=== PATIENT | male | born 1940 | race Caucasian/White ===

== ENCOUNTER 2019-09-07 09:43 | Emergency (ER) | payer MEDICARE, MEDICAID, SELFPAY ==
[2019-09-07 09:45] VITALS: BP 136/79; PULSE 77; RESP 20; TEMP 36.4; O2SAT 93
[2019-09-07 09:46] VITALS: BMI 27.4
--- NOTE | 2019-09-07 10:11 | XR_ITS ---
WS: [id number] PORTABLE CHEST HISTORY: chest pain COMPARISON: 12/01/2018 Dual lead LEFT subclavian cardiac pacer. Slight elevation of the LEFT hemidiaphragm is stable. New interstitial thickening and stranding in th e RIGHT lower lung field. No pneumonia. No pleural effusion or pneumothorax. Cardiac size: Mildly enlarged cardiac silhouette. Mediastinum/Aorta: Prominent pulmonary arteries with rapid tapering. No mediastinal widening. Mild at herosclerosis aorta. No osseous abnormality seen. XR/XR chest 1V portable [id number] IMPRESSION: 1. Subsegmental atelectasis RIGHT lower lobe. 2. Emphysema and pulmonary hypertension.
--- NOTE | 2019-09-07 10:12 | ED_ITS ---
HPI - Chest Pain General: Chief Complaint: Chest Pain Stated Complaint: Chest pain Time Seen by Provider: 09/07/19 10:02 History of Present Illness: HPI narrative: 78-year-old male presents emergency room with complaints of chest pain has had intermittently for a week. 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 States he noticed his blood pressure will decrease into the 90s states she has more trouble breathing dizziness and chest pain in the morning has a blood pressure improved to the day the chest pain resolves he does related to some exertional effort when he walks across the house or get increased chest pain this morning he says he noticed it radiating to his neck and into the jaw on the left side. He is not been diaphoretic with it known nausea or vomiting. He has previously had known coronary disease and had multiple stents placed and has a pacemaker that was placed to help with rate control with his atrial fibrillation. MD complaint: chest pain and chest heaviness Pertinent past history: coronary artery disease Onset (ago): week(s) (2) Timing of current episode: episodic Prior episodes: Yes Onset: during exertion Pain location: substernal Pain radiation: neck (Left side) and jaw/teeth Quality: tightness and heaviness Relieving factors: rest Exacerbating factors: exertion Associated symptoms: Reports dyspnea and palpitations; Deny diaphoresis, fever(s), leg edema, nausea, syncope or vomiting Treatment prior to arrival: none Review of Systems Const: Denies: fever or diaphoresis ENMT: Denies: throat pain, ear pain, nasal discharge or nasal congestion Card: Reports: chest pain, palpitations and irregular heart rhythm; Denies: syncope Resp: Reports: shortness of breath GI: Denies: nausea or vomiting : Denies: flank pain, painful urination, urinary frequency or urinary urgency Skin/Breast: Denies: rash or itching PFSH ED PFSH: Statuses (acute, chronic, etc) shown below reflect problem list status as previously entered and may not be historically accurate Social History Smoking and tobacco status: former smoker Physical Exam Const: COMMON NORMALS: no apparent distress GENERAL APPEARANCE: cooperative and comfortable ORIENTATION/CONSCIOUSNESS: Yes awake, Yes oriented to person, Yes oriented to place and Yes oriented to time HENMT: COMMON NORMALS: normocephalic, head/scalp atraumatic, hearing grossly normal bilaterally, external ears normal, EAC's normal, TM's normal bilaterally, nasal mucous membranes and turbinates normal, moist oral mucous membranes and oropharynx normal HEAD & SCALP: normocephalic and atraumatic NOSE: nasal mucous membranes and turbinates normal EXTERNAL EAR: Yes external ears normal EXTERNAL AUDITORY CANAL: EAC's normal TYMPANIC MEMBRANE: TM's normal bilaterally Eye: COMMON NORMALS: PERRL, EOMs intact bilaterally, conjunctivae normal and no scleral icterus CONJUNCTIVA: Yes conjunctivae normal PUPIL: Yes PERRL Neck/C-Spine: COMMON NORMALS: full ROM, no lymphadenopathy, supple and no JVD Lymph: LYMPHATIC: no lymphadenopathy noted and no lymphedema noted Resp: COMMON NORMALS: normal respiratory effort, no retractions, no use of accessory muscles and clear to auscultation bilaterally AUSCULTATION: clear to auscultation bilaterally Cardio: COMMON NORMALS: no JVD, regular rate, regular rhythm and no murmurs RATE: regular rate RHYTHM: regular rhythm GI: COMMON NORMALS: soft to palpation and no hepatosplenomegaly AUSCULTATION: Yes normoactive bowel sounds PALPATION: Yes soft, No tender, No guarding and Yes no hepatosplenomegaly Extremity: COMMON NORMALS: normal to inspection, normal capillary refill, no clubbing, cyanosis or edema, no calf tenderness and no pedal edema Neuro: SENSORIUM/ORIENTATION: Yes oriented to person, Yes oriented to place and Yes oriented to time Skin: COMMON NORMALS: no rashes or lesions noted GENERAL SKIN EXAM: no rashes or lesions noted Course Vital Signs: Vital signs: Vital Signs Temperature 97.6 F 09/07/19 09:45 Pulse Rate 78 09/07/19 13:44 Respiratory Rate 18 09/07/19 13:44 Blood Pressure 136/78 09/07/19 13:44 Pulse Oximetry 98 09/07/19 13:44 MDM - Chest Pain Lab Data: Labs: Lab Results 09/07/19 09/07/19 09/07/19 Range/Units 10:20 10:20 10:20 WBC 9.1 (4.0-10.0) 10^3/ uL RBC 4.61 (4.1-5.3) 10^6/u L Hgb 14.0 (11.7-16.6) g/dL Hct 43.3 (42.0-52.0) % MCV 93.9 (80-94) fL MCH 30.4 (28.0-34.0) pg MCHC 32.3 (30.0-36.0) g/dL RDW 13.9 (12.1-15.1) % Plt Count 252 (130-400) 10^3/c mm MPV 10.3 (7.4-10.4) fL Neut % (Auto) 75.7 % Lymph % (Auto) 14.9 % [place] % (Auto) 5.2 % Eos % (Auto) 1.9 % Baso % (Auto) 1.5 % Neut # (Auto) 6.9 (1.8-7.7) 10^3/u L Lymph # (Auto) 1.4 (0.8-4.8) 10^3/u L [place] # (Auto) 0.5 (0.2-0.9) 10^3/u L Eos # (Auto) 0.2 (0.0-0.8) 10^3/u L Baso # (Auto) 0.1 (0.0-0.1) 10^3/u L Nucleated RBC % (a uto) 0 % Nucleated RBCs # 0.0 /100WBC Sodium 142 (136-145) mmol/L Potassium 3.7 (3.5-5.1) mmol/L Chloride 102 (98-107) mmol/L Carbon Dioxide 29 (22-29) mmol/L Anion Gap 14.7 (5-19) BUN 13 (8-23) mg/dL Creatinine 1.0 (0.7-1.2) mg/dL Glucose 124 H (74-106) mg/dL Calcium 9.3 (8.8-10.2) mg/Dl Total Bilirubin 0.4 (0.15-1.2) mg/dL AST 12 (0-40) U/L ALT 7 (0-41) U/L Alkaline Phosphata se 97 (40-130) IU/L Troponin T Baselin e 18 H (0-15) ng/mL Troponin T 120 Min [place] (0-15) ng/mL Delta Troponin T (0-10) ABS# Total Protein 6.1 L (6.6-8.7) g/dL Albumin 4.0 (3.5-5.2) g/dL Globulin 2.1 (1.3-4.6) g/dL 09/07/19 Range/Units 12:25 WBC (4.0-10.0) 10^3/ uL RBC (4.1-5.3) 10^6/u L Hgb (11.7-16.6) g/dL Hct (42.0-52.0) % MCV (80-94) fL MCH (28.0-34.0) pg MCHC (30.0-36.0) g/dL RDW (12.1-15.1) % Plt Count (130-400) 10^3/c mm MPV (7.4-10.4) fL Neut % (Auto) % Lymph % (Auto) % [place] % (Auto) % Eos % (Auto) % Baso % (Auto) % Neut # (Auto) (1.8-7.7) 10^3/u L Lymph # (Auto) (0.8-4.8) 10^3/u L [place] # (Auto) (0.2-0.9) 10^3/u L Eos # (Auto) (0.0-0.8) 10^3/u L Baso # (Auto) (0.0-0.1) 10^3/u L Nucleated RBC % (a uto) % Nucleated RBCs # /100WBC Sodium (136-145) mmol/L Potassium (3.5-5.1) mmol/L Chloride (98-107) mmol/L Carbon Dioxide (22-29) mmol/L Anion Gap (5-19) BUN (8-23) mg/dL Creatinine (0.7-1.2) mg/dL Glucose (74-106) mg/dL Calcium (8.8-10.2) mg/Dl Total Bilirubin (0.15-1.2) mg/dL AST (0-40) U/L ALT (0-41) U/L Alkaline Phosphata se (40-130) IU/L Troponin T Baselin e (0-15) ng/mL Troponin T 120 Min [place] 14.51 (0-15) ng/mL Delta Troponin T -3.49 L (0-10) ABS# Total Protein (6.6-8.7) g/dL Albumin (3.5-5.2) g/dL Globulin (1.3-4.6) g/dL Discharge Plan Discharge Patient Disposition: Home, Self-Care Clinical Impression: Atypical chest pain, Atrial fibrillation Condition: Stable Prescriptions: No Action isosorbide mononitrate 30 mg Tablet Extended Release 24 Hr 30 mg PO QAM RF: 0 prednisone 5 mg Tablet 5 mg PO DAILY RF: 0 Aspir-81 81 mg Tablet,Delayed Release (Dr/Ec) 81 mg PO BEDTIME RF: 0 sotalol 120 mg Tablet 120 mg PO BID RF: 0 Prevacid 30 mg Capsule,Delayed Release(Dr/Ec) 30 mg PO BID RF: 0 Nitrostat 0.4 mg Tablet, Sublingual 0.4 mg SUBLINGUAL Q5M PRN (Reason: Chest Pain) RF: 0 hydroxyzine HCl 25 mg Tablet 25 mg PO TID PRN (Reason: Itching) RF: 0 hydrocortisone 10 mg Tablet 10 mg PO BID RF: 0 Lyrica 300 mg Capsule 300 mg PO DAILY RF: 0 Pradaxa 150 mg Capsule 150 mg PO BID RF: 0 Referrals: Riaz Lovelace MD [Primary Care Provider] - Discharge Diet: Usual diet Discharge Activity: Increase activity as tolerated Activity Restrictions/Additional Instructions: Discussed her case with Dr. Lancaster. He recommends an outpatient stress test which will be set up with child welfare caseworker will call you with the results after which follow-up with his office. If you have any other questions or problems before the testing is done please call Dr. Reza's office Discharge Date/Time: 09/07/19 13:46 Coding Level of Care Code ED Invasive Physician for Jude Fwann Exam Problem Focused
[2019-09-07 10:26] LABS: Basophils # 0.1 10^3/uL (0.0-0.1); Basophils % 1.5 %; Eosinophils # 0.2 10^3/uL (0.0-0.8); Eosinophils % 1.9 %; Hematocrit 43.3 % (42.0-52.0); Lymphocytes # 1.4 10^3/uL (0.8-4.8); Lymphocytes % 14.9 %; Mean Corpuscular HGB Conc 32.3 g/dL (30.0-36.0); Mean Corpuscular Hemoglobin 30.4 pg (28.0-34.0); Mean Corpuscular Volume 93.9 fL (80-94); Mean Platelet Volume 10.3 fL (7.4-10.4); Monocytes # 0.5 10^3/uL (0.2-0.9); Monocytes % 5.2 %; Neutrophils # 6.9 10^3/uL (1.8-7.7); Neutrophils % 75.7 %; Nucleated Red Blood Cells % 0 %; Platelet Count 252 10^3/cmm (130-400); Red Blood Count 4.61 10^6/uL (4.1-5.3); Red Cell Distribution Width 13.9 % (12.1-15.1); White Blood Count 9.1 10^3/uL (4.0-10.0)
[2019-09-07 10:45] LABS: Alanine Aminotransferase 7 U/L (0-41); Alkaline Phosphatase 97 IU/L (40-130); Anion Gap 14.7 (5-19); Aspartate Amino Transferase 12 U/L (0-40); Blood Urea Nitrogen 13 mg/dL (8-23); Calcium 9.3 mg/Dl (8.8-10.2); Carbon Dioxide 29 mmol/L (22-29); Chloride 102 mmol/L (98-107); Globulin 2.1 g/dL (1.3-4.6); Glucose 124 mg/dL (74-106); Potassium 3.7 mmol/L (3.5-5.1); Sodium 142 mmol/L (136-145); Total Bilirubin 0.4 mg/dL (0.15-1.2); Total Protein 6.1 g/dL (6.6-8.7); Troponin(5th) Baseline 18 ng/mL (0-15)
--- NOTE | 2019-09-07 12:11 | ECG_ITS ---
Measurements Intervals [place] Rate: 77 P: 96 FL: 191 QRS: -23 QRSD: 83 T: 19 QT: 403 QTc: 456 ELECTRONIC ATRIAL PACEMAKER BORDERLINE LEFT AXIS DEVIATION [QRS AXIS < -20] ABNORMAL RHYTHM ECG Compared to ECG 12/13/2018 12:27:54 Atrial fibrillation no longer present Myocardial infarct finding no longer present Electronically Signed On 09-07-2019 15:30:24 TEST RIDER by Aydin Steward M.D. [id number]
[2019-09-07 12:58] LABS: Troponin 5 2HR 14.51 ng/mL (0-15)
[2019-09-07 13:10] LABS: Troponin 5 2HR Delta -3.49 ABS# (0-10)
[2019-09-07 13:44] VITALS: BP 136/78; PULSE 78; RESP 18; O2SAT 98
--- NOTE | 2019-09-07 16:11 | ECG_ITS ---
Measurements Intervals [place] Rate: 73 P: 80 ND: 183 QRS: -18 QRSD: 90 T: 21 QT: 419 QTc: 463 ELECTRONIC ATRIAL PACEMAKER ABNORMAL RHYTHM ECG Compared to ECG 12/13/2018 12:27:54 Atrial fibrillation no longer present Myocardial infarct finding no longer present Electronically Signed On 09-07-2019 15:29:22 PAPER PRODUCTS MACHINE OPERATOR by Aydin Steward M.D. [email or web address]
--- NOTE | 2019-09-08 15:54 | DCPLANNER ---
manager of investigations had message to schedule an outpatient stress test for patient. manager of investigations faxed order to centralized scheduling, will call for appointment information.
--- NOTE | 2019-09-13 14:32 | DCPLANNER ---
Patient has a stress test scheduled for 09.22.19, centralized will call patient with appointment information.
--- NOTE | 2019-10-06 14:38 | DCPLANNER ---
Patient did attend stress test scheduled for 09.22.19.
== END 2019-09-07 13:46 | disposition home or self-care (01) ==
PROVIDERS: Emergency Provider Family Medicine; Family Provider Family Medicine; PCP Family Medicine
DX: R07.89 Other chest pain (principal); I48.91 Unspecified atrial fibrillation; Z79.82 Long term (current) use of aspirin; Z87.891 Personal history of nicotine dependence
CPT/HCPCS: 36415; 71045; 80053; 84484; 85025; 93005; 99282

== ENCOUNTER 2019-09-22 06:57 | Outpatient (CLI) | payer MEDICARE, MEDICAID, SELFPAY ==
--- NOTE | 2019-09-22 07:06 | ECG_ITS ---
NAME OF STUDY: LEXISCAN SESTAMIBI STRESS TEST INDICATION: Chest Pain, NOTE: Please note that this is the electrocardiogram portion of the Lexiscan/Sestamibi stress test. The perfusion scan will be documented separately. DATA: Baseline heart rate was 80 beats per minute. Baseline blood pressure was 162/96 millimeters of mercury. Target heart rate was 143. Maximum heart rate achieved was 139. which was 97 % of the predicted target heart rate. Maximum blood pressure was 162/96 millimeters of mercury. The reason for ending the test was completion of the protocol. The patient did not experience any symptoms. ELECTROCARDIOGRAM: BASELINE: Sinus rhythm. Normal axis. Interventricular conduction delay, Otherwise, no ST-T changes suggestive of ischemia noted. No arrhythmia noted. EXERCISE: After Lexiscan injection, no ST-T changes suggestive of ischemic noted. No arrhythmia noted. CONCLUSION: Please note due to baseline abnormality of the EKG specificity and sensitivity of the EKG portion of LexiScan MIBI stress test will be low 1. EKG not suggestive of ischemia 2. Lexiscan injection unremarkable. 3. Perfusion scan will be documented separately. Electronically Signed On 09-22-2019 15:19:24 PROFESSIONAL FEE CODER by Debbie Lancaster M.D. [id number]
--- NOTE | 2019-09-22 07:07 | NMCV_ITS ---
NM radha perf SPECT r/s* [id number] Gamal Burk Age: 78 Gender: M : 1940 Exam Date: 09/22/2019 08:03 Ordering Phys: Felipe Mcclellan DO Technologist: OCTAVIA Clark Exam Location: [facility] Indications: Chest pain STRESS TEST Please see separate stress test report in [facility] for full findings IMAGE PROTOCOL Rest/Stress 1 Lexiscan Day Radiopharmaceutical Dose (mCi) Administration Site Administered by Rest: Tc-99m 10.8 IV OCTAVIA Clark Sestamibi Stress:Tc-99m 32.4 IV OCTAVIA Clark Sestamibi Rest: 22-Sep-2019 60 Discovery 630 Stress: 22-Sep-2019 45 Discovery 630 0.4mg Lexiscan. Images obtained in supine and prone position. SPECT RESULTS Technical Quality: Good Raw Data Analysis: Normal Image Corrections: No attenuation or motion correction applied Summed Stress Score: 2 Summed Rest Score: 0 Summed Difference Score: 2 PERFUSION FINDINGS SPECT images demonstrate homogeneous tracer distribution throughout the myocardium. FUNCTIONAL RESULTS (calculated via Gated SPECT) Stress Image LV EF (%): 51 Stress EDV (mL):81 TID: 1.09 Stress ESV (mL):40 Rest Image LV EF (%): 51 FUNCTIONAL FINDINGS: There is normal left ventricular systolic function. IMPRESSIONS Myocardial perfusion imaging is normal and low probability for obstructive coronary artery disease. EKG segment will be documented separately. Debbie Lancaster MD (Electronically Signed) Final Date: 22 September 2019 14:31 S
[2019-09-22 07:19] VITALS: BMI 27.3
[2019-09-22] MEDS: regadenoson 0.4 Mg/5 ml Syringe IVP (08:45)
[2019-09-22] MEDS: aminophylline 25 mg/mL SDV 10 mL IVP (08:50)
[2019-09-22 09:00] VITALS: BP 145/84; PULSE 70
== END 2019-09-22 06:58 | disposition home or self-care (01) ==
LOC: CDL 07:00
PROVIDERS: Family Provider Family Medicine; PCP Family Medicine; Visit Provider Family Medicine
DX: R07.9 Chest pain, unspecified (principal)
CPT/HCPCS: 78452; 93017; 96374; 96375; A9500; J0280; J2785

== ENCOUNTER → 2019-09-28 14:10 | Outpatient (BNVA) | payer MEDICARE, MEDICAID, SELFPAY | PROVIDERS: Family Provider Family Medicine; PCP Family Medicine; Visit Provider Nurse Practitioner Family | DX: N40.0 Benign prostatic hyperplasia without lower urinary tract symptoms (principal); N39.0 Urinary tract infection, site not specified; R82.81 Pyuria | CPT/HCPCS: 81001; 87077; 87086; 87186 ==

== ENCOUNTER → 2019-10-19 09:49 | Outpatient (BNVA) | payer MEDICARE, MEDICAID, SELFPAY | PROVIDERS: Family Provider Family Medicine; PCP Family Medicine; Visit Provider Urology | DX: R31.0 Gross hematuria (principal); N39.0 Urinary tract infection, site not specified; N40.1 Benign prostatic hyperplasia with lower urinary tract symptoms | CPT/HCPCS: 81001 ==

== ENCOUNTER → 2019-11-30 12:10 | Outpatient (BNVA) | payer MEDICARE, MEDICAID, SELFPAY | PROVIDERS: Family Provider Family Medicine; PCP Family Medicine; Visit Provider Urology | DX: N40.1 Benign prostatic hyperplasia with lower urinary tract symptoms (principal); R31.0 Gross hematuria; N30.20 Other chronic cystitis without hematuria | CPT/HCPCS: 80053; 81001; 87077; 87086; 87186 ==

== ENCOUNTER 2020-01-18 13:48 | Outpatient (CLI) | payer MEDICARE, MEDICAID, SELFPAY ==
--- NOTE | 2020-01-18 13:56 | CT_ITS ---
WS: [id number] CT RIGHT HIP, NONCONTRAST. HISTORY: GREATER TROCHANTERIC BURSITIS Technique: All CT scans at [facility] use at least one of these dose optimization techniq ues: automated exposure control; mA and/or kV adjustment per patient size (includes targeted exams wh ere dose is matched to clinical indication); or iterative reconstruction. DLP: 606.51 mGy.cm COMPARISON: 12/15/2015 Status post RIGHT hip arthroplasty. Prosthetic components within the acetabulum and proximal femur re main in good position. Acetabular component is similar to the prior CT of 12/15/2015. There is no adjac ent soft tissue edema. Femoral head component is centrally positioned within the acetabular prosthesi s. No loosening is evident. Mild narrowing and degenerative changes at the RIGHT SI joint. No osteoblastic or osteolytic bone dis ease. No significant amount of fluid over the greater trochanter. Muscles and soft tissues are preser miguel. Scattered calcifications in the femoral artery. Prostate gland enlargement. Bladder wall is thickened and there is a bladder diverticulum anteriorly. Prostate seeds are evident. CT/CT hip RT wo con* [id number] IMPRESSION: 1. Status post RIGHT hip arthroplasty with no complications. 2. No fractures or loosening or soft tissue collections. 3. Mild bladder wall hypertrophy and small bladder diverticulum. Probably rela ck to a chronic outlet obstruction.
== END 2020-01-18 13:49 | disposition home or self-care (01) ==
LOC: RAD 13:53
PROVIDERS: PCP Family Medicine; Visit Provider Family Medicine
DX: M70.61 Trochanteric bursitis, right hip (principal); Z96.641 Presence of right artificial hip joint; N32.89 Other specified disorders of bladder; N32.3 Diverticulum of bladder
CPT/HCPCS: 73700

== ENCOUNTER → 2020-03-07 08:35 | Outpatient (BNVA) | payer MEDICARE, MEDICAID, SELFPAY | PROVIDERS: PCP Family Medicine; Visit Provider Urology | DX: N30.20 Other chronic cystitis without hematuria (principal) | CPT/HCPCS: 80053; 81001; 87077; 87086; 87186 ==

== ENCOUNTER → 2020-04-08 07:39 | Outpatient (BNVA) | payer MEDICARE, MEDICAID, SELFPAY | PROVIDERS: PCP Family Medicine; Visit Provider Urology | DX: N30.20 Other chronic cystitis without hematuria (principal) | CPT/HCPCS: 81001 ==

== ENCOUNTER 2020-07-08 16:27 | Emergency (ER) | payer MEDICARE, MEDICAID, SELFPAY ==
[2020-07-08 16:47] VITALS: BP 138/91; PULSE 99; RESP 12; TEMP 36.1; O2SAT 97; BMI 27.2
--- NOTE | 2020-07-08 17:45 | ED_ITS ---
HPI - Epistaxis General: Chief complaint: Epistaxis Stated complaint: Severe Nose Bleed Time Seen by Provider: 07/08/20 17:34 History of Present Illness: HPI Narrative: Patient is a 79-year-old male who comes to the ED with epistaxis. Patient is on Eliquis and was just told by his PCP to stop taking Eliquis today due to his nosebleed. He took his last dose this morning. Patient said this morning he leaned forward and blood started dripping out of his nose. That lasted for about 30 minutes and he was able to stop it. He then got up and walked to another room of the house and nosebleeding started again. He has been pinching his nose to try to stop b leeding and has not stopped. Denies any trauma or injury to cause nosebleed. Associated symptoms: Deny fever(s), headache(s) or vomiting Review of Systems Const: Denies: fever(s), chills or fatigue Eyes: Denies: change in vision or eye discomfort ENMT: Reports: epistaxis; Denies: throat pain, odynophagia, nasal discharge or nasal congestion Card: Denies: chest pain, palpitations, edema, swelling of feet/ankles, dyspnea on exertion or orthopnea Resp: Denies: dyspnea, productive cough or non-productive cough GI: Denies: abdominal pain, nausea, vomiting, diarrhea, constipation or hematochezia : Denies: flank pain, difficulty urinating, dysuria or hematuria Musc: Denies: neck pain, back pain or extremity swelling Skin/Breast: Denies: rash or new lesions Neuro: Denies: headache(s), numbness in extremities or weakness in extremities [facility] ED PFSH: Medical History Atrial fibrillation BPH loc w urin obs/LUTS Could not tolerate Alpha blockers or 5 alpha reductase inhibitors. CAD (coronary artery disease) Chest pain Chronic cystitis Chronic prostatitis Essential hypertension Gross hematuria Recurrent UTI Surgical History H/O heart artery stent H/O local excision of skin lesion H/O total hip arthroplasty History of back surgery S/P appendectomy S/P cardiac pacemaker procedure S/P hemorrhoidectomy S/P inguinal hernia repair Family History Family/Other Cancer CAD (coronary artery disease) Father , AT AGE 78 No problems noted. Mother , AT AGE 84 CAD (coronary artery disease) Social History Smoking and tobacco status: former smoker Alcohol intake: never Adopted: No Caregiver/support person: No Lives independently: No Household members: spouse Marital status: Current occupational status: retired History of recent travel: No Current gender identity: Male Physical Exam Const: COMMON NORMALS: no acute distress, patient oriented x3 and alert GENERAL APPEARANCE: cooperative and comfortable HENMT: COMMON NORMALS: normocephalic HEAD & SCALP: normocephalic NOSE: Epistaxis present on the left anterior source, active bleeding (minimal active bleeding seen) and clots present MOUTH: Normal oral and palatal mucosa present and other (Visible blood seen slightly draining down back of throat upon exam.) THROAT: posterior oropharynx normal and uvula midline Eye: COMMON NORMALS: Equal, round and reactive pupils present PUPIL: Yes Equal, round and reactive pupils present Neck/C-Spine: COMMON NORMALS: supple GENERAL: Yes normal visual inspection Resp: COMMON NORMALS: normal respiratory effort, No retractions, No use of accessory muscles and clear to auscultation bilaterally AUSCULTATION: clear to auscultation bilaterally Cardio: COMMON NORMALS: regular rate, regular rhythm, S1 normal heart sound present, S2 normal heart sound present, No gallops present (Cardio), No clicks present (Cardio), No murmurs present (Cardio) and Peripheral pulses 2+ throughout RATE: regular rate RHYTHM: regular rhythm HEART SOUNDS: S1 normal heart sound present and S2 normal heart sound present PERIPHERAL PULSES: Peripheral pulses 2+ throughout GI: COMMON NORMALS: Normal to inspection, nondistended, normoactive bowel sounds present, Soft to palpation, non-tender and no masses PALPATION: Yes Soft to palpation : COMMON NORMALS: Yes no CVA tenderness BLADDER/KIDNEY EXAM: Yes no CVA tenderness Back/Pelvis: COMMON NORMALS: no CVA tenderness Extremity: COMMON NORMALS: normal to inspection Neuro: COMMON NORMALS: patient oriented x3 and moves all extremities SENSORIUM/ORIENTATION: Yes alert Skin: GENERAL SKIN EXAM: dry skin Course Reevaluation(s): Reevaluation #1: Initial exam showed minimal bleeding in the left nare appears to be anterior source. Some blood clots seen. Was able to visualize small amount of bleeding draining to the back of patient's throat. Patient was given some nasal spray in both nostrils and then nose was clamped for 10 minutes. When I went in to reevaluate he had no more active bleeding and blood clots were seen. No active bleeding down the back of the throat visualized. I then applied 2 more sprays of Afrin in each nostril and clamped again and will recheck in about 5 minutes. Time: 18:12 Reevaluation #2: Patient's nose was checked again for any bleeding and no active bleeding seen. Blood clots noted in left nare. No active bleeding visualized down back of patient's throat. Patient says he feels like bleeding is stopped. Vital Signs: Vital signs: Vital Signs Temperature 97.0 F L 07/08/20 16:47 Pulse Rate 99 07/08/20 16:47 Respiratory Rate 12 07/08/20 16:47 Blood Pressure 138/91 07/08/20 16:47 Pulse Oximetry 97 07/08/20 16:47 MDM - Epistaxis MDM Narrative: Medical decision making narrative: Patient is a 79-year-old male comes to the ED with epistaxis. Patient is on Eliquis and was told by his doctor to stop taking due to nosebleed. He took his last dose this morning and is not going to take his usual evening dose. While here in the ED Afrin was sprayed into the nostrils and nasal clamp was placed for well over 15 minutes. Nasal clamp was then removed and bleeding had stopped. Clots seen in left nare. No visible bleeding seen down the back of patient's throat. Patient was discharged and given instructions on how to handle any reoccurring nosebleed. He was told to contact his PCP tomorrow morning to discuss how long he should be off his Eliquis. Return to ED precautions given. Patient understood and agreed with plan. Lab Data: Attestation: I reviewed the patient's lab results. Labs: Lab Results 07/08/20 07/08/20 Range/Units 17:38 17:38 WBC 8.0 (4.0-10.0) 10^3/ uL RBC 4.25 (4.1-5.3) 10^6/u L Hgb 13.3 (11.7-16.6) g/dL Hct 42.3 (42.0-52.0) % MCV 99.5 H (80-94) fL MCH 31.3 (28.0-34.0) pg MCHC 31.4 (30.0-36.0) g/dL RDW 13.7 (12.1-15.1) % Plt Count 266 (130-400) 10^3/c mm MPV 11.0 H (7.4-10.4) fL Neut % (Auto) 54.9 % Lymph % (Auto) 30.0 % [place] % (Auto) 7.5 % Eos % (Auto) 4.9 % Baso % (Auto) 2.1 % Neut # (Auto) 4.41 (1.8-7.7) 10^3/u L Lymph # (Auto) 2.4 (0.8-4.8) 10^3/u L [place] # (Auto) 0.6 (0.2-0.9) 10^3/u L Eos # (Auto) 0.4 (0.0-0.8) 10^3/u L Baso # (Auto) 0.2 H (0.0-0.1) 10^3/u L Nucleated RBC % (a uto) 0 % Nucleated RBCs # 0.0 /100WBC PT 15.20 H (12.1-14.9) SECO NDS INR 1.16 (0.8-1.2) Discharge Plan Discharge Patient Disposition: Home Clinical Impression: Epistaxis Condition: Stable Prescriptions: No Action Eliquis 2.5 mg tablet 2.5 mg PO BID RF: 0 Dexilant 30 mg capsule,biphase delayed releas 60 mg PO DAILY RF: 0 hydrocodone-acetaminophen [[place]] 7.5-325 mg tablet 1 tab PO TID PRNRF: 0 doxycycline hyclate 100 mg tablet 100 mg PO BID Qty: 60 RF: 1 prednisone 5 mg Tablet 5 mg PO DAILY RF: 0 Aspir-81 81 mg Tablet,Delayed Release (Dr/Ec) 81 mg PO BEDTIME RF: 0 sotalol 120 mg Tablet 120 mg PO BID RF: 0 Nitrostat 0.4 mg Tablet, Sublingual 0.4 mg SUBLINGUAL Q5M PRN (Reason: Chest Pain) RF: 0 hydrocortisone 10 mg Tablet 10 mg PO BID RF: 0 Lyrica 300 mg Capsule 300 mg PO DAILY RF: 0 hydroxyzine HCl 25 mg tablet 25 mg PO DAILY RF: 0 Discharge Orders: Discharge Order (Routine); Ordered 07/08/20 Ordered By: Curly Copeland Referrals: Riaz Lovelace MD [Primary Care Provider] - Discharge Diet: Regular Discharge Activity: Limit activity as instructed Patient Instructions: Epistaxis (ED) Activity Restrictions/Additional Instructions: Follow-up with medical provider as directed. Contact your heart doctors and see how long he would like for you to be off your Eliquis. Limit any lifting or activity for the next couple days. If you have a reoccurring nosebleed he can spray Afrin twice in each nostril and use the clamp on nose. Repeat that after 10 minutes if bleeding has not stopped. If after 30 minutes he cannot control bleeding return to the ED. Take medications as prescribed. Return to the ER or your medical provider if condition worsens. Please read and understand discharge instructions. If any questions, please ask. Coding Level of Care Code ED Bridge Mechanic for Jude Fwd Exam Comprehensive
[2020-07-08] MEDS: oxymetazoline 0.05% Nasal Spray 15 mL 2 SPRAY NOSTRIL-B (17:55)
[2020-07-08 18:15] LABS: Basophils # 0.2 10^3/uL (0.0-0.1); Basophils % 2.1 %; Eosinophils # 0.4 10^3/uL (0.0-0.8); Eosinophils % 4.9 %; Hematocrit 42.3 % (42.0-52.0); Hemoglobin 13.3 g/dL (11.7-16.6); Lymphocytes # 2.4 10^3/uL (0.8-4.8); Mean Corpuscular HGB Conc 31.4 g/dL (30.0-36.0); Mean Corpuscular Hemoglobin 31.3 pg (28.0-34.0); Mean Corpuscular Volume 99.5 fL (80-94); Monocytes # 0.6 10^3/uL (0.2-0.9); Monocytes % 7.5 %; Neutrophils # 4.41 10^3/uL (1.8-7.7); Neutrophils % 54.9 %; Nucleated Red Blood Cells % 0 %; Platelet Count 266 10^3/cmm (130-400); Red Blood Count 4.25 10^6/uL (4.1-5.3); Red Cell Distribution Width 13.7 % (12.1-15.1)
[2020-07-08 18:22] LABS: INR 1.16 (0.8-1.2)
== END 2020-07-08 18:57 | disposition home or self-care (01) ==
PROVIDERS: Emergency Medicine; Emergency Provider Physician Assistant; PCP Family Medicine
DX: R04.0 Epistaxis (principal); Z79.01 Long term (current) use of anticoagulants; Z79.82 Long term (current) use of aspirin; I48.91 Unspecified atrial fibrillation; I25.10 Atherosclerotic heart disease of native coronary artery without angina pectoris; I10 Essential (primary) hypertension; Z87.891 Personal history of nicotine dependence
CPT/HCPCS: 12345; 85025; 85610; 99281; 99283

== ENCOUNTER → 2020-08-13 09:03 | Outpatient (BNVA) | payer MEDICARE, MEDICAID, SELFPAY | PROVIDERS: PCP Family Medicine; Visit Provider Urology | DX: N40.1 Benign prostatic hyperplasia with lower urinary tract symptoms (principal); N41.1 Chronic prostatitis; R31.0 Gross hematuria; N39.0 Urinary tract infection, site not specified | CPT/HCPCS: 81003 ==

== ENCOUNTER 2020-08-21 12:03 | Outpatient (CLI) | payer MEDICARE, MEDICAID, SELFPAY ==
--- NOTE | 2020-08-21 14:52 | P.PTHFZ_ITS ---
Frozen Section Notes Specimen(s): The specimens are received in 6 containers labeled with the patient's name. Gross: The specimens are received in 6 containers labeled the patient's name and MRN number. Specimen A, BCC a posterior scalp?suture anterior (formalin) is received in formalin. Specimen B, right ear skin cancer suture superior (fresh) is a whitlock ellipse of skin measuring 1.5 x 0.6 x 0.2 cm. The superior margin is identified and is inked in black and the deep area is identified. The superior margin is 6:00 and 6-12 is inked in blue and 12-6 is inked in red the superior margin is submitted in cassette B1 for frozen and the inferior margin and remainder sections are submitted in cassette B2. Specimen C, left posterior margin of BCCA posterior scalp consists of whitlock-white mucosa measuring 0.9 x 0.9 x 0.1 cm. The skin is identified with hair follicles and the deep margin is inked in blue. The specimen is entirely submitted for frozen section. FS C1. Specimen D, right anterior margin of BCCA posterior scalp consists of skin with mucosa measuring 0.9 x 1.5 x 0.2 cm. The deep margin is inked in blue. The specimen is entirely submitted in cassette FS D1. Specimen E, left anterior margin of BCCA posterior scalp consists of left anterior margin BCC posterior scalp measuring 1.1 x 0.5 x 0.2 cm. The deep margin is inked in blue and the specimen is entirely submitted in cassette FS E1 for frozen section. Specimen F, right posterior margin of BCCA consists of skin with mucosa rickey suring 1.1 x 0.5 x 0.2 cm. The deep margin is inked in blue and the specimen is entirely submitted for frozen section diagnosis in FS F1. Preliminary Impression: B. Ear, right, right ear skin cancer suture superior FS B1: Margins are negative for squamous cell carcinoma. C. Skin, left posterior margin of BCCA posterior scalp FS C1: Margin is negative for BCC. D. Skin, right anterior margin of BCCA posterior scalp FS D1: Margin is negative for BCC. E. Skin, left anterior margin of BCCA posterior scalp FS E1: Margin is negative for BCC. F. Skin, right posterior margin of BCCA posterior scalp FS F1: Margin is negative for BCC. - Specimen Information Pathologist: Apollo Blanca Date: 08/21/19 (\) Specimen reported at what time: 11:28 - Clinician Specimen collection time: 10:52 Clinician reported to: Harjinder Ascencio
== END 2020-08-21 12:04 | disposition home or self-care (01) ==
PROVIDERS: PCP Family Medicine; Visit Provider Specialist
DX: C44.41 Basal cell carcinoma of skin of scalp and neck (principal)
CPT/HCPCS: 88305

== ENCOUNTER 2020-09-11 10:36 | Emergency (ER) | payer MEDICARE, MEDICAID, SELFPAY ==
[2020-09-11 10:42] VITALS: BP 135/81; PULSE 88; RESP 16; TEMP 36.3; O2SAT 96; BMI 27.2
[2020-09-11 10:45] VITALS: BP 143/80; PULSE 80; RESP 18; O2SAT 95
--- NOTE | 2020-09-11 10:48 | XR_ITS ---
WS: [id number] Exam: XR chest 1V portable [id number] Date/Time of Exam: 09/11/2020 10:48 AM Reason For Exam: chest pain Comparison 09/07/2019. The lungs are clear and fully expanded. Chronic elevation of the left diaphragm. Heart size is top li mits normal. Mild apical pleural thickening noted bilaterally. The mediastinum is normal in contour. A permanent cardiac pacer superimposes the left chest. XR/XR chest 1V portable [id number] IMPRESSION: 1. No acute cardiopulmonary finding.
--- NOTE | 2020-09-11 10:49 | ECG_ITS ---
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 Measurements Intervals [place] Rate: 83 P: MT: QRS: -71 QRSD: 144 T: 90 QT: 421 QTc: 495 Interpretive Statements ELECTRONIC VENTRICULAR PACEMAKER ABNORMAL RHYTHM ECG INTERPRETATION BASED ON A DEFAULT AGE OF 40 YEARS Compared to ECG 09/07/2019 12:27:00 Atrial-paced complex(es) or rhythm no longer present Electronically Signed On 09-12-2020 18:00:04 ROCK LATHER by Uzair Goodwin M.D. [id number]
[2020-09-11 10:53] VITALS: RESP 16
[2020-09-11 11:14] LABS: Basophils # 0.2 10^3/uL (0.0-0.1); Basophils % 1.7 %; Eosinophils # 0.4 10^3/uL (0.0-0.8); Eosinophils % 3.5 %; Hematocrit 43.1 % (42.0-52.0); Hemoglobin 13.4 g/dL (11.7-16.6); Lymphocytes # 2.4 10^3/uL (0.8-4.8); Lymphocytes % 24.4 %; Mean Corpuscular HGB Conc 31.1 g/dL (30.0-36.0); Mean Corpuscular Volume 96.4 fL (80-94); Mean Platelet Volume 11.1 fL (7.4-10.4); Monocytes # 0.8 10^3/uL (0.2-0.9); Monocytes % 7.6 %; Neutrophils # 6.16 10^3/uL (1.8-7.7); Nucleated Red Blood Cells % 0 %; Platelet Count 231 10^3/cmm (130-400); Red Blood Count 4.47 10^6/uL (4.1-5.3); Red Cell Distribution Width 13.5 % (12.1-15.1)
--- NOTE | 2020-09-11 11:19 | W.ED.CHESTPA ---
HPI - Chest Pain General: Chief Complaint: Chest Pain Stated Complaint: CP, Dizzy, Low BP Time Seen by Provider: 09/11/20 10:48 History of Present Illness: HPI narrative: 79-year-old male with a history of intermittent atrial fibrillation he is on sotalol no recent medication changes lately in addition to that he is on Eliquis. He recently had episode of low blood pressure this morning was down into the 70 systolic he was extremely lightheaded and dizzy. He gets that occasionally but usually not quite as low usually happens when he is at rest and happens in the morning. Not always associated with palpitations or worsening symptoms of irregular heartbeat. He does get some chest heaviness and discomfort with it radiating to his back but no shortness of breath diaphoresis nausea or vomiting. For the most part it is resolved at this point. He has a known history of coronary disease he cannot recall last time he had a stress test or angiogram. MD complaint: chest heaviness Pertinent past history: other (atrial fibrillation) Onset (ago): hour(s) Timing of current episode: episodic Onset: during rest Pain location: left chest Pain radiation: none Quality: heaviness Relieving factors: nothing Exacerbating factors: nothing Associated symptoms: Deny abdominal pain, diaphoresis, dyspnea, fever(s), leg edema, nausea, palpitations, sense of impending doom, syncope or vomiting Treatment prior to arrival: none Review of Systems Const: Denies: fever(s) or diaphoresis ENMT: Denies: throat pain, ear or mastoid pain, nasal discharge or nasal congestion Card: Denies: palpitations or syncope Resp: Denies: dyspnea GI: Denies: abdominal pain, nausea or vomiting : Denies: flank pain, dysuria, urinary frequency or urinary urgency Skin/Breast: Denies: rash or pruritus PFSH ED PFSH: Medical History Atrial fibrillation BPH loc w urin obs/LUTS Could not tolerate Alpha blockers or 5 alpha reductase inhibitors. CAD (coronary artery disease) Chest pain Chronic cystitis Chronic prostatitis Essential hypertension Gross hematuria Recurrent UTI Surgical History H/O heart artery stent H/O local excision of skin lesion H/O total hip arthroplasty History of back surgery S/P appendectomy S/P cardiac pacemaker procedure S/P hemorrhoidectomy S/P inguinal hernia repair Family History Family/Other Cancer CAD (coronary artery disease) Father , AT AGE 78 No problems noted. Mother , AT AGE 84 CAD (coronary artery disease) Social History Smoking and tobacco status: former smoker Alcohol intake: never Adopted: No Caregiver/support person: No Lives independently: No Household members: spouse Marital status: Current occupational status: retired History of recent travel: No Current gender identity: Male Physical Exam Const: COMMON NORMALS: no acute distress GENERAL APPEARANCE: cooperative and comfortable ORIENTATION/CONSCIOUSNESS: Yes awake, Yes oriented to person, Yes oriented to place and Yes oriented to time HENMT: COMMON NORMALS: normocephalic, atraumatic and hearing grossly normal bilaterally HEAD & SCALP: normocephalic and atraumatic Eye: COMMON NORMALS: Equal, round and reactive pupils present, EOMs intact bilaterally, conjunctivae normal and no scleral icterus CONJUNCTIVA: Yes conjunctivae normal PUPIL: Yes Equal, round and reactive pupils present Neck/C-Spine: COMMON NORMALS: full ROM, no lymphadenopathy and supple Lymph: LYMPHATIC: no lymphadenopathy noted and no lymphedema noted Resp: COMMON NORMALS: normal respiratory effort, No retractions, No use of accessory muscles and clear to auscultation bilaterally AUSCULTATION: clear to auscultation bilaterally Cardio: COMMON NORMALS: regular rate, No murmurs present (Cardio) and Peripheral pulses 2+ throughout RATE: regular rate RHYTHM: abnormal rhythm irregularly irregular PERIPHERAL PULSES: Peripheral pulses 2+ throughout GI: COMMON NORMALS: Soft to palpation and No hepatosplenomegaly present AUSCULTATION: Yes normoactive bowel sounds PALPATION: Yes Soft to palpation, No Tenderness to palpation present (GI), No Guarding due to palpation present (GI) and Yes No hepatosplenomegaly present Extremity: COMMON NORMALS: normal to inspection, capillary refill normal, no clubbing, cyanosis or edema, no calf tenderness and no pedal edema Neuro: SENSORIUM/ORIENTATION: Yes oriented to person, Yes oriented to place and Yes oriented to time Skin: COMMON NORMALS: no rashes or lesions noted GENERAL SKIN EXAM: no rashes or lesions noted Course Vital Signs: Vital signs: Vital Signs Temperature 97.3 F L 09/11/20 10:42 Pulse Rate 81 09/11/20 14:05 Respiratory Rate 16 09/11/20 14:05 Blood Pressure 118/69 09/11/20 14:05 Pulse Oximetry 98 09/11/20 14:05 MDM - Chest Pain MDM Narrative: Medical decision making narrative: Troponin negative x2 EKG shows no acute ST changes we will discharge patient home with a Holter monitor follow-up with cardiology return if has problems Lab Data: Labs: Lab Results 09/11/20 09/11/20 09/11/20 Range/Units 10:45 10:45 10:45 WBC 10.0 (4.0-10.0) 10^3/ uL RBC 4.47 (4.1-5.3) 10^6/u L Hgb 13.4 (11.7-16.6) g/dL Hct 43.1 (42.0-52.0) % MCV 96.4 H (80-94) fL MCH 30.0 (28.0-34.0) pg MCHC 31.1 (30.0-36.0) g/dL RDW 13.5 (12.1-15.1) % Plt Count 231 (130-400) 10^3/c mm MPV 11.1 H (7.4-10.4) fL Neut % (Auto) 62.0 % Lymph % (Auto) 24.4 % [place]umas % (Auto) 7.6 % Eos % (Auto) 3.5 % Baso % (Auto) 1.7 % Neut # (Auto) 6.16 (1.8-7.7) 10^3/u L Lymph # (Auto) 2.4 (0.8-4.8) 10^3/u L [place] # (Auto) 0.8 (0.2-0.9) 10^3/u L Eos # (Auto) 0.4 (0.0-0.8) 10^3/u L Baso # (Auto) 0.2 H (0.0-0.1) 10^3/u L Nucleated RBC % (a uto) 0 % Nucleated RBCs # 0.0 /100WBC Sodium 144 (136-145) mmol/L Potassium 3.5 (3.5-5.1) mmol/L Chloride 103 (98-107) mmol/L Carbon Dioxide 33 H (22-29) mmol/L Anion Gap 11.5 (5-19) BUN 18 (8-23) mg/dL Creatinine 1.1 (0.7-1.2) mg/dL GFR Calculation Not Reportable Glucose 102 (65-115) mg/dL Calculated Osmolal ity 300 H (285-295) mOsm/k g Calcium 9.5 (8.5-10.5) mg/dL Total Bilirubin 0.4 (0.15-1.2) mg/dL AST 12 (0-40) U/L ALT 8 (0-41) U/L Alkaline Phosphata se 83 (40-130) IU/L Creatine Kinase 25 L (39-308) U/L Troponin T Baselin e 25 H (0-15) ng/L Troponin T 120 Min grindstone (0-15) ng/L Delta Troponin T (0-10) ABS# Total Protein 6.1 L (6.6-8.7) g/dL Albumin 4.0 (3.5-5.2) g/dL Globulin 2.1 (1.3-4.6) g/dL 09/11/20 Range/Units 12:55 WBC (4.0-10.0) 10^3/ uL RBC (4.1-5.3) 10^6/u L Hgb (11.7-16.6) g/dL Hct (42.0-52.0) % MCV (80-94) fL MCH (28.0-34.0) pg MCHC (30.0-36.0) g/dL RDW (12.1-15.1) % Plt Count (130-400) 10^3/c mm MPV (7.4-10.4) fL Neut % (Auto) % Lymph % (Auto) % [place] % (Auto) % Eos % (Auto) % Baso % (Auto) % Neut # (Auto) (1.8-7.7) 10^3/u L Lymph # (Auto) (0.8-4.8) 10^3/u L [place] # (Auto) (0.2-0.9) 10^3/u L Eos # (Auto) (0.0-0.8) 10^3/u L Baso # (Auto) (0.0-0.1) 10^3/u L Nucleated RBC % (a uto) % Nucleated RBCs # /100WBC Sodium (136-145) mmol/L Potassium (3.5-5.1) mmol/L Chloride (98-107) mmol/L Carbon Dioxide (22-29) mmol/L Anion Gap (5-19) BUN (8-23) mg/dL Creatinine (0.7-1.2) mg/dL GFR Calculation Glucose (65-115) mg/dL Calculated Osmolal ity (285-295) mOsm/k g Calcium (8.5-10.5) mg/dL Total Bilirubin (0.15-1.2) mg/dL AST (0-40) U/L ALT (0-41) U/L Alkaline Phosphata se (40-130) IU/L Creatine Kinase (39-308) U/L Troponin T Baselin e (0-15) ng/L Troponin T 120 Min grindstone 19.59 H (0-15) ng/L Delta Troponin T -5.41 L (0-10) ABS# Total Protein (6.6-8.7) g/dL Albumin (3.5-5.2) g/dL Globulin (1.3-4.6) g/dL Discharge Plan Discharge Patient Disposition: Home Clinical Impression: Atrial fibrillation, Transient hypotension Condition: Stable Prescriptions: No Action Eliquis 2.5 mg tablet 2.5 mg PO BID RF: 0 Dexilant 30 mg capsule,biphase delayed releas 60 mg PO DAILY RF: 0 hydrocodone-acetaminophen [[place]] 7.5-325 mg tablet 1 tab PO TID PRNRF: 0 prednisone 5 mg Tablet 5 mg PO DAILY RF: 0 Aspir-81 81 mg Tablet,Delayed Release (Dr/Ec) 81 mg PO BEDTIME RF: 0 sotalol 120 mg Tablet 120 mg PO BID RF: 0 Nitrostat 0.4 mg Tablet, Sublingual 0.4 mg SUBLINGUAL Q5M PRN (Reason: Chest Pain) RF: 0 hydrocortisone 10 mg Tablet 10 mg PO BID RF: 0 Lyrica 300 mg Capsule 300 mg PO DAILY RF: 0 hydroxyzine HCl 25 mg tablet 25 mg PO DAILY RF: 0 Discharge Orders: Discharge ED (Routine); Ordered 09/11/20 Ordered By: Felipe Mcclellan Referrals: Riaz Lovelace MD [Primary Care Provider] - Discharge Diet: Usual diet Discharge Activity: Limit activity as instructed Activity Restrictions/Additional Instructions: This management will call with an appointment to set up a 24-hour Holter monitor Coding Level of Care Code ED Paranormal Investigator for Jude Mercado
[2020-09-11 11:30] LABS: Alanine Aminotransferase 8 U/L (0-41); Alkaline Phosphatase 83 IU/L (40-130); Anion Gap 11.5 (5-19); Aspartate Amino Transferase 12 U/L (0-40); Blood Urea Nitrogen 18 mg/dL (8-23); Calcium 9.5 mg/dL (8.5-10.5); Carbon Dioxide 33 mmol/L (22-29); Chloride 103 mmol/L (98-107); Creatine Phosphokinase 25 U/L (39-308); Globulin 2.1 g/dL (1.3-4.6); Glucose 102 mg/dL (65-115); Osmolality Calculated 300 mOsm/kg (285-295); Potassium 3.5 mmol/L (3.5-5.1); Sodium 144 mmol/L (136-145); Total Bilirubin 0.4 mg/dL (0.15-1.2); Total Protein 6.1 g/dL (6.6-8.7)
[2020-09-11 11:32] VITALS: BP 103/58; PULSE 72; RESP 20; O2SAT 99
[2020-09-11 11:34] LABS: Troponin(5th) Baseline 25 ng/L (0-15)
--- NOTE | 2020-09-11 12:49 | ECG_ITS ---
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 Measurements Intervals [place] Rate: 69 P: MO: QRS: -37 QRSD: 86 T: -33 QT: 393 QTc: 422 Interpretive Statements Atrial fibrillation with demand AV paced rhythm ELECTRONIC VENTRICULAR PACEMAKER -- CONTOUR ANALYSIS BASED ON INTRINSIC RHYTHM Compared to ECG 09/11/2020 10:45:56 No significant changes Electronically Signed On 09-12-2020 18:09:50 ASSISTANT ASSOCIATE FULL PROFESSOR by Uzair Goodwin M.D. [id number]
[2020-09-11 13:17] VITALS: BP 120/71; PULSE 71; RESP 18; O2SAT 97
[2020-09-11 13:25] LABS: Troponin 5 2HR 19.59 ng/L (0-15)
[2020-09-11 13:29] LABS: Troponin 5 2HR Delta -5.41 ABS# (0-10)
[2020-09-11 14:05] VITALS: BP 118/69; PULSE 81; RESP 16; O2SAT 98
--- NOTE | 2020-09-12 15:56 | DCPLANNER ---
Addendum entered by Dhara Donis 09/25/20 09:43: nursing services manager spoke with Aide, patient will follow up with GRAIN FARMWORKER Velia Grider on , October 03, 2020. If provider feels that patient needs halter monitor than it will be ordered from heart care. Addendum entered by Dhara Donis 09/18/20 13:35: nursing services manager had to refax patients order for a 24 hour halter monitor to heart care. nursing services manager called to confirm that heart care received the order. nursing services manager spoke with Aide, was told that clinic received the order. Original Note: nursing services manager had message to schedule an appointment for a 24 hour holter monitor. nursing services manager faxed order to heart care, will call for appointment information.
--- NOTE | 2020-11-06 13:05 | DCPLANNER ---
Patient had a follow up appointment scheduled for 09.12.20 with Velia Grider at [facility] - patient did attend appointment.
== END 2020-09-11 14:06 | disposition home or self-care (01) ==
PROVIDERS: Emergency Provider Family Medicine; PCP Family Medicine
DX: I48.91 Unspecified atrial fibrillation (principal); I95.89 Other hypotension; Z79.01 Long term (current) use of anticoagulants; Z79.82 Long term (current) use of aspirin; I25.10 Atherosclerotic heart disease of native coronary artery without angina pectoris; I10 Essential (primary) hypertension; Z95.0 Presence of cardiac pacemaker; Z87.891 Personal history of nicotine dependence
CPT/HCPCS: 12345; 36415; 71045; 80053; 82550; 84484; 85025; 93005; 99283; 99284

== ENCOUNTER → 2020-11-26 10:27 | Outpatient (BNVA) | payer MEDICARE, MEDICAID, SELFPAY | PROVIDERS: PCP Family Medicine; Referring Provider Family Medicine; Visit Provider Anesthesiology Pain Medicine | DX: M54.9 Dorsalgia, unspecified (principal); M79.604 Pain in right leg; Z79.891 Long term (current) use of opiate analgesic; Z98.1 Arthrodesis status | CPT/HCPCS: 99204 ==

== ENCOUNTER → 2020-12-24 11:03 | Outpatient (BNVA) | payer MEDICARE, MEDICAID, SELFPAY | PROVIDERS: PCP Family Medicine; Visit Provider Anesthesiology Pain Medicine | DX: Z98.1 Arthrodesis status (principal); M54.9 Dorsalgia, unspecified; Z87.891 Personal history of nicotine dependence; Z79.891 Long term (current) use of opiate analgesic | CPT/HCPCS: 99213; 99214 ==

== ENCOUNTER → 2021-01-21 09:47 | Outpatient (BNVA) | payer MEDICARE, MEDICAID, SELFPAY | PROVIDERS: PCP Family Medicine; Visit Provider Anesthesiology Pain Medicine | DX: G89.29 Other chronic pain (principal); M54.9 Dorsalgia, unspecified; M79.604 Pain in right leg; Z98.1 Arthrodesis status; Z79.891 Long term (current) use of opiate analgesic; Z87.891 Personal history of nicotine dependence | CPT/HCPCS: 99214 ==

== ENCOUNTER 2021-02-10 06:44 | Outpatient (CLI) | payer MEDICARE, MEDICAID, SELFPAY ==
--- NOTE | 2021-02-10 06:58 | USCV_ITS ---
Gamal Burk Age: 80 Gender: M : 1940 Exam Date: 02/10/2021 07:16 Ordering Phys: Riaz Lovelace MD Technologist: Exam Location: [facility] [place] Indication: TIA BP: 150 / 65 HR: 94 Rhythm: Sinus Technical Quality: Fair MEASUREMENTS (Male / Female) Normal Values 2D ECHO LV Diastolic Diameter PLAX 4.5 cm 4.2 - 5.9 / 3.9 - 5.3 cm LV Systolic Diameter PLAX 2.8 cm IVS Diastolic Thickness 1.4 cm 0.6 - 1.0 / 0.6 - 0.9 cm IVS Systolic Thickness 1.7 cm LVPW Diastolic Thickness 1.4 cm 0.6 - 1.0 / 0.6 - 0.9 cm LVPW Systolic Thickness 1.5 cm LVOT Diameter 2.1 cm LV Ejection Fraction 2D Teich 68.3 % LV Ejection Fraction MOD 2C 61.6 % LV Ejection Fraction 2C AL 60.3 % LA Diameter 3.8 cm LA Width 3.7 cm LA Height 5.5 cm RA Width 4.3 cm RA Height 5.3 cm Aorta at Sinotubular Diameter 3.3 cm DOPPLER AV Peak Velocity 95.0 cm/s LVOT Peak Velocity 111.0 cm/s AV Area Cont Eq vti 4.6 cm squared AV Area Cont Eq pk 4.0 cm squared MV Area PHT 5.0 cm squared Mitral E to A Ratio 0.5 MV E' Velocity 23.0 cm/s Mitral E to MV E' Ratio 6.9 Mitral E to LV E' Lateral Ratio 6.7 Mitral E to LV E' Septal Ratio 7.2 TR Peak Velocity 286.0 cm/s TR Peak Gradient 32.7 mmHg TV Peak E Velocity 126.0 cm/s Right Atrial Pressure 3.0 mmHg Pulmonary Artery Systolic Pressu 35.7 mmHg PV Peak Velocity 79.0 cm/s FINDINGS Left Ventricle Normal left ventricular size and systolic function, EF 59 %. No regional wall motion abnormalities. Grade I/IV diastolic dysfunction (abnormal relaxation filling pattern), normal to mildly elevated filling pressures. Right Ventricle Pacemaker wire in the right ventricle Right Atrium Pacemaker wire in the right atrium.mildly increased right atrial size. Left Atrium Normal left atrial size. Mitral Valve Mild mitral valve regurgitation. Aortic Valve Thickened aortic valve. Mild to moderate aortic valve regurgitation. Tricuspid Valve Mildtricuspid valve regurgitation. Pulmonic Valve Pulmonic valve not well visualized. Pericardium No pericardial effusion. Aorta Normal aortic annulus size. CONCLUSIONS Normal left ventricular size and systolic function, EF 59 %. No regional wall motion abnormalities. Grade I/IV diastolic dysfunction (abnormal relaxation filling pattern), normal to mildly elevated filling pressures. Pacemaker wire in the right atrium. MNormal left atrial size. Mild mitral valve regurgitation. Mild to moderate aortic valve regurgitation. Mildtricuspid valve regurgitation. Mildly increased right atrial size. There is no pericardial effusion. There are no intracardiac masses. Compared to the study from 12/01/2018, there may not be a significant change Dr Uzair Goodwin MD [facility] (Electronically Signed) Final Date: 10 February 2021 18:49 S
--- NOTE | 2021-02-10 06:58 | USCV_ITS ---
Gamal Burk Age: 80 Gender: M : 1940 Exam Date: 02/10/2021 07:35 Ordering Phys: Riaz Lovelace MD Technologist: Exam Location: [facility] [place] Indication: TIA Risk Factors: Previous Vascular Surgery: Right Brachial BP: / Left Brachial BP: / Right Left Velocity (cm/s) Spectral Plaque Velocity (cm/s) Spectral Plaque Syst/Diast Broadening Syst/Diast Broadening 60.60/ 16.50 Prox CCA 54.50 / 10.20 59.50/ 8.80 Mid CCA 51.60 / 13.10 54.60/ 11.80 Distal CCA 48.70 / 9.40 Hetro 49.30/ 14.50 Hetro Prox ICA 78.00 / 25.10 Hetro 48.00/ 12.30 Erlin Mid ICA 80.60 / 18.50 53.60/ 17.00 Distal ICA 93.15 / 31.05 61.10 ECA 72.70 0.88 ICA/CCA 1.72 Antegrade Vertebral Antegrade 27.10/ 8.90 cm/s 62.10/ 19.80 cm/s Bi Subclavian Bi 48.00 78.00 FINDINGS Mild to moderate dense plaques bilaterally of the bifurcations and proximal internal carotid arteries. Intimal thickening in the common carotid arteries bilaterally. Antegrade flow in the vertebral arteries bilaterally. Normal Doppler flow velocities in the external carotid and subclavian arteries bilaterally CONCLUSIONS Mild to moderate dense plaques bilaterally of the bifurcations and proximal internal carotid arteries with the Doppler features suggesting less than 50% stenosis. No significant stenosis in the subclavian or external carotid arteries bilaterally, based on the above findings Dr Uzair Goodwin MD [facility] (Electronically Signed) Final Date: 11 February 2021 09:32 S
== END 2021-02-10 06:45 | disposition home or self-care (01) ==
LOC: RAD 06:51
PROVIDERS: PCP Family Medicine; Visit Provider Family Medicine
DX: G45.9 Transient cerebral ischemic attack, unspecified (principal); I08.3 Combined rheumatic disorders of mitral, aortic and tricuspid valves; Z95.0 Presence of cardiac pacemaker
CPT/HCPCS: 93306; 93880

== ENCOUNTER → 2021-02-11 09:16 | Outpatient (BNVA) | payer MEDICARE, MEDICAID, SELFPAY | PROVIDERS: PCP Family Medicine; Visit Provider Nurse Practitioner Family | DX: N41.1 Chronic prostatitis (principal); N39.0 Urinary tract infection, site not specified; N40.1 Benign prostatic hyperplasia with lower urinary tract symptoms | CPT/HCPCS: 81003 ==

== ENCOUNTER → 2021-03-11 08:49 | Outpatient (BNVA) | payer MEDICARE, MEDICAID, SELFPAY | PROVIDERS: PCP Family Medicine; Visit Provider Anesthesiology Pain Medicine | DX: M54.5 Low back pain (principal); M79.604 Pain in right leg; Z98.1 Arthrodesis status; Z87.891 Personal history of nicotine dependence; Z79.891 Long term (current) use of opiate analgesic | CPT/HCPCS: 99214 ==

== ENCOUNTER 2021-03-14 08:13 | Outpatient (RCR) | payer MEDICARE, MEDICAID, SELFPAY | END 2021-03-15 23:59 | disposition home or self-care (01) | LOC: SPT 08:13 | PROVIDERS: PCP Family Medicine; Referring Provider Family Medicine; Visit Provider Family Medicine | DX: R42 Dizziness and giddiness (principal) | CPT/HCPCS: 95992; 97162 ==

== ENCOUNTER 2021-03-16 06:00 | Outpatient (RCR) | payer MEDICARE, MEDICAID, SELFPAY | END 2021-04-15 23:59 | disposition home or self-care (01) | LOC: SPT 06:00 | PROVIDERS: PCP Family Medicine; Referring Provider Family Medicine; Visit Provider Family Medicine | DX: R42 Dizziness and giddiness (principal) | CPT/HCPCS: 95992 ==

== ENCOUNTER 2021-05-13 06:00 | Outpatient (RCR) | payer MEDICARE, MEDICAID, SELFPAY | END 2021-05-15 23:59 | disposition home or self-care (01) | LOC: SPT 06:00 | PROVIDERS: PCP Family Medicine; Referring Provider Neurological Surgery; Visit Provider Neurological Surgery | DX: M54.5 Low back pain (principal) | CPT/HCPCS: 97110; 97161 ==

== ENCOUNTER → 2021-05-15 09:48 | Outpatient (BNVA) | payer MEDICARE, MEDICAID, SELFPAY | PROVIDERS: PCP Family Medicine; Visit Provider Urology | DX: N41.1 Chronic prostatitis (principal); N39.0 Urinary tract infection, site not specified; R31.0 Gross hematuria; N40.1 Benign prostatic hyperplasia with lower urinary tract symptoms | CPT/HCPCS: 81003; 87077; 87086; 87184; 88112 ==

== ENCOUNTER 2021-06-03 07:40 | Outpatient (CLI) | payer MEDICARE, MEDICAID, SELFPAY ==
--- NOTE | 2021-06-03 07:45 | CT_ITS ---
WS: [id number] CT ABDOMEN PELVIS TECHNIQUE: Noncontrast CT of the abdomen and contrast-enhanced CT of the abdomen and pelvis with sri nal and sagittal reformatted images. CLINICAL INFORMATION: GROSS HEMATURIA COMPARISON: CT 2016 DLP: 3729.[address] scans at [facility] use at least one of these dose optimization techniques: automated e xposure control; mA and/or kV adjustment per patient size (includes targeted exams where dose is matc hed to clinical indication); or iterative reconstruction. FINDINGS: Enlarged prostate with calcification measuring 5.1 CM. Associated diffuse bladder wall thickening wit h bladder outlet obstruction. Indentation with thickening of the adjacent bladder. Normal seminal ves icles. Normal adjacent sigmoid colon. A few sigmoid diverticuli. Bilateral renal cysts larger on the left measuring 5.1 CM. No hydronephrosis. Adrenal glands are norm al. No obstructing renal or ureteral calculi. Normal renal parenchymal enhancement. Normal excretion on the delayed images. No filling defects. Normal liver. Prior cholecystectomy. Coronary calcification. Lung bases are well aerated. A few small subcentimeter nodules in the lung bases largest right lower lobe measuring 7 mm. Normal spleen. Norm al GE junction. No evidence of small or large bowel obstruction. Fatty atrophy of the pancreas. Aorti c calcification. Normal caliber abdominal aorta. Fat-containing umbilical hernia. No abdominal or pelvic lymphadenopathy. No inguinal lymphadenopathy. Prior postoperative changes L4-5 pedicle screw fixation with interbody fusion. CT/CT abdomen pelvis wo/w [id number] IMPRESSION: 1. Enlarged calcified prostate measuring 5.1 cm with indentation on the adjace nt bladder with evidence of bladder outlet obstruction.Correlation PSA. This ap pears progressed compared to 2016. 2. No hydronephrosis in either kidney. Normal renal parenchymal enhancement. B ilateral renal cysts. 3. No abdominal or pelvic lymphadenopathy. 4. A few small pulmonary nodules in both lower lobes largest in the right lowe r lobe measuring 7 mm is stable since November 15, 2015. Recommend 12 month follow -up chest CT. 5. Prior postoperative changes right ARTURO.
[2021-06-03 08:39] LABS: Anion Gap 9.8 (5-19); Blood Urea Nitrogen 12 mg/dL (8-23); Carbon Dioxide 32 mmol/L (22-29); Chloride 104 mmol/L (98-107); Glucose 103 mg/dL (65-115); Osmolality Calculated 294 mOsm/kg (285-295); Potassium 3.8 mmol/L (3.5-5.1); Sodium 142 mmol/L (136-145)
== END 2021-06-03 07:41 | disposition home or self-care (01) ==
PROVIDERS: PCP Family Medicine; Visit Provider Urology
DX: N40.0 Benign prostatic hyperplasia without lower urinary tract symptoms (principal); R91.8 Other nonspecific abnormal finding of lung field; R31.0 Gross hematuria
CPT/HCPCS: 36415; 74178; 80048; 81003; Q9967

== ENCOUNTER 2021-08-12 14:54 | Outpatient (CLI) | payer MEDICARE, MEDICAID, SELFPAY ==
[2021-08-12 15:13] VITALS: BP 132/71; PULSE 93; RESP 18; TEMP 36.3; O2SAT 96; BMI 26.6
[2021-08-12 16:10] VITALS: BP 128/72; PULSE 93; RESP 17; TEMP 36.1; O2SAT 96
[2021-08-12 16:58] VITALS: BP 119/69; PULSE 98; RESP 17; TEMP 36.7; O2SAT 95
[2021-08-12 17:09] VITALS: BP 119/69; PULSE 98; RESP 17; TEMP 36.7; O2SAT 96
== END 2021-08-12 14:55 | disposition home or self-care (01) ==
LOC: OPS 15:00
PROVIDERS: PCP Family Medicine; Visit Provider Family Medicine
DX: U07.1 COVID-19 (principal)
CPT/HCPCS: 96365

== ENCOUNTER → 2021-11-04 08:45 | Outpatient (BNVA) | payer MEDICARE, MEDICAID, SELFPAY | PROVIDERS: PCP Family Medicine; Visit Provider Nurse Practitioner Family | DX: N39.0 Urinary tract infection, site not specified (principal); N40.1 Benign prostatic hyperplasia with lower urinary tract symptoms; R31.0 Gross hematuria | CPT/HCPCS: 81003 ==

== ENCOUNTER → 2021-11-28 09:54 | Outpatient (BNVA) | payer MEDICARE, MEDICAID, SELFPAY | PROVIDERS: PCP Family Medicine; Visit Provider Internal Medicine Cardiovascular Disease | DX: Z45.010 Encounter for checking and testing of cardiac pacemaker pulse generator [battery] (principal) | CPT/HCPCS: 93280 ==

== ENCOUNTER → 2022-02-11 15:36 | Outpatient (BNVA) | payer MEDICARE, MEDICAID, SELFPAY | PROVIDERS: PCP Family Medicine; Visit Provider Internal Medicine | DX: I25.10 Atherosclerotic heart disease of native coronary artery without angina pectoris (principal); I48.19 Other persistent atrial fibrillation; I10 Essential (primary) hypertension | CPT/HCPCS: 99214 ==

== ENCOUNTER 2022-03-13 14:10 | Outpatient (CLI) | payer MEDICARE, MEDICAID, SELFPAY ==
--- NOTE | 2022-03-13 14:39 | ECG_ITS ---
[facility] Test Date: 2022-03-13 Pat Name: Gamal Burk Department: Room: Gender: Male Professor Criminal Justice: : 1940 Requested By: Harjinder Barahona Order Number: [id number] Marcus MD: Freida Andrea M.D. Measurements Intervals [place] Rate: 85 P: DC: QRS: -63 QRSD: 148 T: 92 QT: 411 QTc: 491 Interpretive Statements ELECTRONIC VENTRICULAR PACEMAKER ABNORMAL RHYTHM ECG Compared to ECG 09/11/2020 12:50:37 Atrial fibrillation no longer present AV dual-paced complex(es) or rhythm no longer present Electronically Signed On 03-13-2022 17:43:26 CDT by Freida Andrea M.D. [id number]
== END 2022-03-13 14:11 | disposition home or self-care (01) ==
PROVIDERS: PCP Family Medicine; Visit Provider Specialist
DX: D48.5 Neoplasm of uncertain behavior of skin (principal); I49.8 Other specified cardiac arrhythmias; Z95.0 Presence of cardiac pacemaker
CPT/HCPCS: 93005

== ENCOUNTER 2022-03-16 07:32 | Outpatient (CLI) | payer MEDICARE, MEDICAID, SELFPAY ==
--- NOTE | 2022-03-16 08:00 | USCV_ITS ---
Gamal Burk Age: 81 Gender: M : 1940 Exam Date: 03/16/2022 08:15 Ordering Phys: Shubham Biswas M.D ([email or web address]) Technologist: Ly Solorzano Exam Location: [facility] [place] Indication: CAD BP: 118 / 70 HR: 72 Rhythm: Sinus Technical Quality: Good MEASUREMENTS (Male / Female) Normal Values 2D ECHO LV Diastolic Diameter PLAX 4.3 cm 4.2 - 5.9 / 3.9 - 5.3 cm LV Systolic Diameter PLAX 2.4 cm IVS Diastolic Thickness 1.5 cm 0.6 - 1.0 / 0.6 - 0.9 cm IVS Systolic Thickness 2.0 cm LVPW Diastolic Thickness 1.6 cm 0.6 - 1.0 / 0.6 - 0.9 cm LVPW Systolic Thickness 2.4 cm LVOT Diameter 2.1 cm LV Ejection Fraction 2D Teich 75.6 % LV Ejection Fraction MOD 2C 36.2 % LV Ejection Fraction 2C AL 36.6 % LA Diameter 4.2 cm LA Width 4.3 cm LA Height 5.2 cm RA Width 3.8 cm RA Height 6.7 cm Aorta at Sinotubular Diameter 3.4 cm IVC Diameter 1.5 cm DOPPLER AV Peak Velocity 91.0 cm/s LVOT Peak Velocity 104.0 cm/s AV Area Cont Eq vti 4.0 cm squared AV Area Cont Eq pk 4.0 cm squared MV Peak Velocity 94.0 cm/s MV Area PHT 4.1 cm squared Mitral E to A Ratio 4.2 MV E' Velocity 52.0 cm/s Mitral E to MV E' Ratio 1.8 Mitral E to LV E' Lateral Ratio 9.8 Mitral E to LV E' Septal Ratio 1.0 TR Peak Velocity 232.3 cm/s TR Peak Gradient 21.6 mmHg Right Atrial Pressure 3.0 mmHg Pulmonary Artery Systolic Pressu 24.6 mmHg PV Peak Velocity 66.0 cm/s RV Acceleration Time 0.1 s FINDINGS Left Ventricle Left ventricle is normal in size. LV systolic function is mildly reduced with EF of 40 to 45%. Mild global hypokinesis is seen. Right Ventricle Right ventricle is normal in size and function. Pacemaker lead is noted Right Atrium Normal in size. Pacemaker lead is seen. Normal RA pressure. Left Atrium Normal-sized Mitral Valve Structurally normal mitral valve. Mild mitral regurgitation. Aortic Valve Aortic valve is thickened. Mild aortic regurgitation seen. Tricuspid Valve Mild tricuspid regurgitation. Pulmonary artery systolic pressure is normal. Pulmonic Valve Not well-visualized Pericardium Grossly normal Aorta Normal in size IVC CONCLUSIONS LV systolic function is mildly reduced LVEF of 40 to 45%. Mild global hypokinesis is seen. Mild mitral regurgitation is seen. Mild aortic regurgitation noted. Mild tricuspid regurgitation Compared to prior echocardiogram from 2020, LV systolic function has reduced and is mildly low with EF of 40 to 45% Shubham Biswas MD (Electronically Signed) Final Date: 28 March 2022 10:26 S
== END 2022-03-16 07:33 | disposition home or self-care (01) ==
LOC: RAD 07:32
PROVIDERS: PCP Family Medicine; Visit Provider Internal Medicine
DX: I25.10 Atherosclerotic heart disease of native coronary artery without angina pectoris (principal); I08.3 Combined rheumatic disorders of mitral, aortic and tricuspid valves
CPT/HCPCS: 93306

== ENCOUNTER → 2022-03-20 09:09 | Outpatient (BNVA) | payer MEDICARE, MEDICAID, SELFPAY | PROVIDERS: PCP Family Medicine | DX: Z45.010 Encounter for checking and testing of cardiac pacemaker pulse generator [battery] (principal) | CPT/HCPCS: 93280 ==

== ENCOUNTER → 2022-04-08 14:25 | Outpatient (BNVA) | payer MEDICARE, MEDICAID, SELFPAY | PROVIDERS: PCP Family Medicine; Visit Provider Internal Medicine | DX: I25.10 Atherosclerotic heart disease of native coronary artery without angina pectoris (principal); I48.19 Other persistent atrial fibrillation; I10 Essential (primary) hypertension; R06.09 Other forms of dyspnea; I42.9 Cardiomyopathy, unspecified; Z87.891 Personal history of nicotine dependence | CPT/HCPCS: 99214 ==

== ENCOUNTER 2022-04-28 06:01 | Outpatient (CLI) | payer MEDICARE, MEDICAID, SELFPAY ==
[2022-04-27 08:26] LABS: Basophils # 0.2 10^3/uL (0.0-0.1); Eosinophils # 0.5 10^3/uL (0.0-0.8); Eosinophils % 5.1 %; Hemoglobin 11.7 g/dL (11.7-16.6); Lymphocytes # 2.4 10^3/uL (0.8-4.8); Lymphocytes % 26.4 %; Mean Corpuscular HGB Conc 29.3 g/dL (30.0-36.0); Mean Corpuscular Hemoglobin 25.8 pg (28.0-34.0); Mean Corpuscular Volume 88.3 fl (80-94); Mean Platelet Volume 11.1 fL (7.4-10.4); Monocytes # 0.8 10^3/uL (0.2-0.9); Monocytes % 8.4 %; Neutrophils # 5.16 10^3/uL (1.8-7.7); Neutrophils % 57.4 %; Nucleated Red Blood Cells % 0 %; Platelet Count 236 10^3/cmm (130-400); Red Blood Count 4.53 10^6/uL (4.1-5.3); Red Cell Distribution Width 16.2 % (12.1-15.1)
[2022-04-27 08:42] LABS: INR 1.03 (0.83-1.21); Prothrombin Time (Patient) 13.8 Seconds (12.0-15.1)
[2022-04-27 09:00] LABS: Anion Gap 8.9 (5-19); Blood Urea Nitrogen 9 mg/dL (8-23); Calcium 8.7 mg/dL (8.5-10.5); Carbon Dioxide 33 mmol/L (22-29); Chloride 105 mmol/L (98-107); Glucose 92 mg/dL (65-115); Osmolality Calculated 294 mOsm/kg (285-295); Potassium 3.9 mmol/L (3.5-5.1); Sodium 143 mmol/L (136-145)
[2022-04-28] VITALS (23 sets, daily range): BP systolic 131–174; BP diastolic 70–88; PULSE 70–85; RESP 14–23; TEMP 37.1; O2SAT 94–99; BMI 25.4
--- NOTE | 2022-04-28 06:00 | XACV_ITS ---
Exam Room: [facility] Ht: 188 cm Wt: 90 kg BSA: 2.17 m2 Gender: Male : 1940 Any Known Allergies: Sulfa Exam Priority: Routine Procedure(s): Procedure Description: Diagnostic procedure Procedure Description: Right Heart Catheterization Procedure Description: O2 saturation Procedure Description: Coronary Angiography Diagnostic Cath Status: Elective Diagnostic Findings * Left main artery: Patent LAD: Mid segment has mild 20 to 30% stenosis. Prior stents are patent Left circumflex artery: Has diffuse luminal irregularities. Gives rise to a large sized OM branch that is patent. RCA: Has mid vessel 30 to 40% stenosis. Prior stents are patent. * INDICATION: LV dysfunction/chest pain. * Right heart cath findings RA pressure: 14 /15/13 RV pressure: 42/9/13 PA pressure: 40/24/29 PCW: 23/32/25 TP PA sat: 59% Ao sat: 90% Cardiac index by Pilo: At 2.3 Cardiac output by Pilo: 4.8 L/min PVR:1 wood units. * Coronary angiography shows right dominance. Conclusions 1. Left main artery: Patent LAD: Mid segment has mild 20 to 30% stenosis. Prior stents are patent Left circumflex artery: Has diffuse luminal irregularities. Gives rise to a large sized OM branch that is patent. RCA: Has mid vessel 30 to 40% stenosis. Prior stents are patent. 2. Mild post capillary pulmonary hypertension. Recommendations * Aggressive risk factor modification. * Patient will need diuretics. * Outpatient cardiology follow-up in 4-week. Interventional RX Recommendation: medical therapy and/or counseling Diagnostic RX Recommendation: medical therapy and/or counseling Anticoagulation: Heparin Pressures Phase:Rest RV : 42 / 9 / 13 @ 9:24:00 AM PA : 40 / 24 ( 29 ) @ 9:22:00 AM RA : a wave = 14 v wave = 15 mean = 13 @ 9:24:00 AM PCW : a wave = 23 v wave = 32 mean = 25 @ 9:22:00 AM O2 Content Phase:Rest PA : O2 Content O2: 59.2 @ 9:22:00 AM Saturations Phase:Rest AO : 90 @ 9:22:00 AM PA : 59 @ 9:22:00 AM Cardiac Output Phase:Rest Pilo : 5 @ 8:43:00 AM Pilo Cardiac Index: 2 @ 8:43:00 AM Flow Phase:Rest Qp : 5 @ 8:43:00 AM Qs : 5 @ 8:43:00 AM Clinical Evaluation EBL: 5mL-10mL Procedural Details Procedure Consent Obtained. Admit Source: Out Patient. Pre-Procedure Time Out. Identified patient by full name and date of as verbalized by the patient/guarantor. Does the consent match the physician's order: Yes. Accurate & Complete Informed Consent: Yes. Inpatient/Outpatient History & Physical on Chart: Yes. If H&P is completed, is and addenduem needed: No; If yes, is the addendum complete: N/A. Visualize and Verify Site with Patient/Guarantor: N/A. Relevant Radiology Images available: N/A. The risks, benefits, and alternatives of sedation and/or procedure were discussed by physician. The patient agrees to continue. Procedure started. [facility] Clinical Fraility Score: 4: Vulnerable. Reel Repairer Indications: LV Dysfunction. Chest Pain Symptom Assessment: Typical Angina Symptoms. Correct patient, site and procedure confirmed by cath team. Current diagnosis: Chest Pain, LV dysfunction. PERRLA. Strong, equal hand card setter bilaterally. Lungs clear x 5 lobes. IV Site on Arrival: 20 gauge in the right anticubital. IV Site on Arrival: 20 gauge in the left anticubital. IV Fluids: 0.9% NaCl at KVO. 0 mL infused prior to labor specialist. Pre Procedural Pulses: bilateral radial was 2+. Pre Procedural Pulses: bilateral dorsalis pedis was 3+. Pre Procedural Pulses: bilateral posterior tibial was 1+. right radial was prepped with chloroprep then draped in the usual sterile fashion. right brachial was prepped with chloroprep then draped in the usual sterile fashion. right groin was prepped with chloroprep then draped in the usual sterile fashion. Physician notified. Baseline sample Acquired. HR: 61 BPM. Physician arrived. Physician scrubbed in. Immediate Pre-Procedure Time Out. Correct Patient: Yes; Correct Procedure: Yes; Correct Site: Yes; Correct Patient Position: Yes; Correct Supplies: Yes; Dried Flammable Prep: Yes; Blood Products Available: No;. Lidocaine 1% infiltrated to the right brachial. Center-Mia MON catheter inserted. Heppner Wire advanced through swan catheter. Unable to advance wire, cougar wire out. Unable to advance , Center -Mia catheter out. Lidocaine 1% infiltrated to the right radial. Arterial access obtained. A 5 tunisian TIG catheter in over exchange wire. Multiple views taken of left coronary artery. Catheter removed over the exchange wire. A 6 tunisian 125cm JR4 catheter in over wire. Multiple views taken of right coronary artery. Catheter removed over the exchange wire. Wire out. Lidocaine 1% infiltrated to the right groin. Venous access obtained with a micropuncture set. Center-Mia MON catheter inserted. Pressure measurements obtained. Oximetry samples were obtained. Normal venous range: 60-85%. Normal arterial range: 95-100%. ABG drawn and sent with respiratory therapy. ACT drawn. Results 160 seconds. Therapeutic limits - pre-heparin administration 90-150 seconds and monitoring heparin during a vascular procedure >250 seconds. Physician scrubbed out. Post Procedure: Pulses reassessed and unchanged. PERRLA. Strong, equal hand card setter bilaterally. No VTE prophylaxis required. Medication's Wasted: Heparin = 1000 unit. Medication's Wasted: Nitro = 49.8 mg. Medication's Wasted: Other = Fentanyl 75mcg. Medication's Wasted: Other = Versed 1 mg. Total IV fluids: 48 mL. Post-op diagnosis: Non Obstructive CAD. Complications: None. Estimated blood loss: 5mL-10mL. Responsiveness - Normal response to verbal stimuli; alert and oriented, PERRLA. Airway - Unaffected, no intervention required; spontaneous ventilation. Circulation: W/N/L, pulses unchanged. Nausea/Vomiting: N/A. Procedure completed. A TR Band was successful obtaining hemostatsis at the Right Radial artery insertion site. A Manual Compression was successful obtaining hemostatsis at the Right Femoral vein insertion site. A Manual Compression was successful obtaining hemostatsis at the Right Brachial Vein insertion site. Patient transferred by bed to 1st floor. Vital chart was stopped. Access Site Site: Right Brachial Vein Sheath Size: 6 Fr Hemostasis Method: Manual Compression Hemostasis Success: Successful Site: Right Radial artery Sheath Size: 6 Fr Hemostasis Method: TR Band Hemostasis Success: Successful Site: Right Femoral vein Sheath Size: 6 Fr Hemostasis Method: Manual Compression Hemostasis Success: Successful Procedure Medications Start: 7:48 AM Stop: 7:48 AM Medication: Versed Amount: 1 mg Route: I.V. Start: 7:51 AM Stop: 7:51 AM Medication: Fentanyl Amount: 25 mcg Route: I.V. Start: 8:00 AM Stop: 8:00 AM Medication: Nitrogylcerin Amount: 200 mcg Route: I.A. Start: 8:04 AM Stop: 8:04 AM Medication: Heparin Amount: 5000 units Route: I.V. Start: 8:04 AM Stop: 8:04 AM Medication: Versed Amount: 1 mg Route: I.V. Start: 8:18 AM Stop: 8:18 AM Medication: Versed Amount: 1 mg Route: I.V. I, the attending physician, have reviewed and verified all procedure medications. Yes, all medications given per verbal order History/Risk Factors Hypertension: Yes Dyslipidemia: No Peripheral Arterial Disease (PAD): No Myocardial Infarction (PR): No Obesity: No Renal Disease: No Tobacco Use: Former Prior Interventions PCI: Yes CABG: No Valve Surgery: No Date of PCI: 01/23/2008 Report Signatures Finalized by Shubham Biswas MD on 05/10/2022 06:22 PM
[2022-04-28] MEDS: diphenhydrAMINE 50 mg Capsule PO (06:15)
--- NOTE | 2022-04-28 07:47 | W.PM.OPSUD ---
Surgery/Procedure H&P Update DATE OF PROCEDURE: April 28, 2022 DATE H&P PERFORMED: 04/08/22 H&P UPDATE INFORMATION: I have reviewed H&P completed within last 30 days, I have examined patient prior to procedure and No changes to prior documentation PREOP DIAGNOSIS: LV dysfunction/chest pain PRIMARY INDICATION FOR PROCEDURE: LV dysfunction/chest pain PLANNED PROCEDURE: Operation Date: 04/28/22 07:00 Proposed Procedures p Right/Left Heart Cath 08003,R93.1(Bilateral) - Shubham Biswas M.D Possible percutaneous coronary intervention PATIENT REASSESSED PRIOR TO SEDATION, WITH NO CHANGE NOTED: Yes PHYSICAL EXAM: alert, oriented x 3, clear to auscultation bilaterally and regular rate & rhythm AIRWAY EVAL/ANESTHESIA PLAN: ASA IV, Local Anesthesia, Risks, benefits & alternatives of sedation and/or procedure discussed and Patient agrees to continue as planned ADDITIONAL INFORMATION: Moderate sedation
[2022-04-28 08:28] LABS: Alveolar-Arterial Oxygen Gradi 4.4 mmHg (5-10); Arterial Blood Gas Hematocrit 32.4 % (42-52); Blood Gas Operator Identificat BROMA; Blood Gas Sample Type Arterial; Carboxyhemoglobin 1.2 %THgb (0.4-20.1); HGB O2 Sat 88.4 % (95-100); Methemoglobin 0.9 % (0.4-1.5); Total Hemoglobin 10.6 g/dL (14-18)
[2022-04-28 08:29] LABS: Alveolar-Arterial Oxygen Gradi 7.1 mmHg (5-10); Arterial Blood Gas Hematocrit 32.1 % (42-52); Blood Gas Operator Identificat BROMA; Blood Gas Sample Type Arterial; Carboxyhemoglobin 1.2 %THgb (0.4-20.1); HGB O2 Sat 57.9 % (95-100); Total Hemoglobin 10.5 g/dL (14-18)
[2022-04-28 08:38] LABS: Blood Gas Sample Site AO
[2022-04-28 08:38] LABS: Blood Gas Sample Site PA
--- NOTE | 2022-04-28 10:55 | PC.NURSE ---
received from cardiac cath laboratory technician into room 111-1 via bed at 0850.report received.pt is awake but a little drowsy from sedation.alert and oriented x 4.v-paced on monitor.arielle stable.pt denies apin.right wrist with tr band on and inflated.right hand is cool to touch but with brisk capillary refill.palpable radial pulse noted distal to tr band.no hematoma noted.right femoral venous site with drsg dry and intact.no hematoma noted.palpable dp pulse noted. pt oriented to room environment...also instructed in activity restrictions s/p right radial arterial and right femoral venous procedures...and instructed to notify staff for any bleeding,pain,sob,chest pain,numbness,or for any concerns at all.pt verb understanding of instructions
--- NOTE | 2022-04-28 14:03 | PC.NURSE ---
tr band slowly deflated and eventually removed at 1330.site dressed with 2x2 gauze and secured with biocclusive drsg.pt instructed in activity restrictions s/p tr band removal..and instructed to notify staff for any bleeding,bruising,numbness..or for any concerns at all.
--- NOTE | 2022-04-28 14:21 | PC.NURSE ---
discharge instructions given and explained.pt and son verb understanding of instructions.discharged via w/c to exit at this time.son to drive pt home.
== END 2022-04-28 14:22 | disposition home or self-care (01) ==
LOC: CCL 06:01 → CSU 09:13
PROVIDERS: PCP Family Medicine; Visit Provider Internal Medicine
DX: I25.10 Atherosclerotic heart disease of native coronary artery without angina pectoris (principal); I10 Essential (primary) hypertension; I48.91 Unspecified atrial fibrillation; Z79.82 Long term (current) use of aspirin; Z95.5 Presence of coronary angioplasty implant and graft; I42.9 Cardiomyopathy, unspecified
CPT/HCPCS: 36415; 80048; 82810; 85025; 85347; 85610; 93456; 96360; 99152; 99153; C1751; C1769; C1887; C1894; J1644; J2250; J3010; J3490; J7030; Q0163; Q9967

== ENCOUNTER → 2022-05-12 07:55 | Outpatient (BNVA) | payer MEDICARE, MEDICAID, SELFPAY | PROVIDERS: PCP Family Medicine; Visit Provider Urology | DX: I48.19 Other persistent atrial fibrillation (principal); I25.10 Atherosclerotic heart disease of native coronary artery without angina pectoris; Z87.891 Personal history of nicotine dependence; N41.1 Chronic prostatitis; N40.1 Benign prostatic hyperplasia with lower urinary tract symptoms; N39.0 Urinary tract infection, site not specified | CPT/HCPCS: 51798; 99213; 99214 ==

== ENCOUNTER → 2022-05-13 15:51 | Outpatient (BNVA) | payer MEDICARE, MEDICAID, SELFPAY | PROVIDERS: PCP Family Medicine; Visit Provider Urology | DX: N40.1 Benign prostatic hyperplasia with lower urinary tract symptoms (principal); N39.0 Urinary tract infection, site not specified; N41.1 Chronic prostatitis | CPT/HCPCS: 81003 ==

== ENCOUNTER → 2022-12-31 14:30 | Outpatient (BNVA) | payer MEDICARE, MEDICAID, SELFPAY | PROVIDERS: PCP Family Medicine; Visit Provider Internal Medicine Cardiovascular Disease | DX: I25.10 Atherosclerotic heart disease of native coronary artery without angina pectoris (principal); I42.9 Cardiomyopathy, unspecified; I48.19 Other persistent atrial fibrillation; R06.09 Other forms of dyspnea; Z95.0 Presence of cardiac pacemaker; R94.31 Abnormal electrocardiogram [ECG] [EKG] | CPT/HCPCS: 36415; 80053; 84443; 85025; 93005; 99214 ==

== ENCOUNTER → 2023-02-02 13:10 | Outpatient (BNVA) | payer MEDICARE, MEDICAID, SELFPAY | PROVIDERS: PCP Family Medicine; Visit Provider Nurse Practitioner Family | DX: I48.19 Other persistent atrial fibrillation (principal); R94.31 Abnormal electrocardiogram [ECG] [EKG]; Z94.0 Kidney transplant status | CPT/HCPCS: 93005; 99214 ==

== ENCOUNTER → 2023-03-16 14:06 | Outpatient (BNVA) | payer MEDICARE, MEDICAID, SELFPAY | PROVIDERS: PCP Family Medicine; Visit Provider Internal Medicine Cardiovascular Disease | DX: I48.19 Other persistent atrial fibrillation (principal); I42.9 Cardiomyopathy, unspecified; R06.09 Other forms of dyspnea; R42 Dizziness and giddiness; I25.10 Atherosclerotic heart disease of native coronary artery without angina pectoris; Z95.0 Presence of cardiac pacemaker; Z79.01 Long term (current) use of anticoagulants; Z87.891 Personal history of nicotine dependence; Z79.82 Long term (current) use of aspirin; I10 Essential (primary) hypertension | CPT/HCPCS: 99215 ==

== ENCOUNTER 2023-03-19 10:26 | Day surgery (SDC) | payer MEDICARE, MEDICAID, SELFPAY ==
[2023-03-18 09:03] VITALS: BMI 24.9
--- NOTE | 2023-03-19 10:36 | USCV_ITS ---
Gamal Burk Age: 82 Gender: M : 1940 Exam Date: 03/19/2023 12:31 Ordering Phys: Freida Andrea MD ([email or web address]) Technologist: MARIANA Exam Location: [facility] [place] Indication: Atrial fibrillation BP: / HR: Rhythm: Sinus Technical Quality: Adequate MEASUREMENTS (Male / Female) Normal Values Medications Patient given IV sedation by anesthesia service, for details please refer to the anesthesia report. Complications Patient tolerated procedure well. Proc. Components The patient was brought to the STANLEY examination room in a fasting state after obtaining an informed consent. The STANLEY probe was passed into the posterior pharynx , mid-esophagus, distal esophagus. The patient tolerated the procedure well and there were no complications. FINDINGS Left Ventricle Normal left ventricular cavity size. Normal left ventricular systolic function. Left ventricular ejection fraction is estimated at 55 %. No regional wall motion abnormalities. Right Ventricle Normal right ventricular size and systolic function. Right Atrium Normal right atrial size. Left Atrium Severely increased left atrial size. LA Appendage Normal left atrial appendage. Decreased flow velocities in the left atrial appendage. No thrombus visualized in the left atrial appendage. IA Septum Normal interatrial septum. Mitral Valve Structurally normal mitral valve. Mitral annular calcification. No mitral valve stenosis. Mild mitral valve regurgitation. Aortic Valve Thickened trileaflet aortic valve. No aortic valve stenosis. [id number] aortic valve regurgitation. Tricuspid Valve Structurally normal tricuspid valve. Trace tricuspid valve regurgitation. Pulmonic Valve Structurally normal pulmonic valve. Trace pulmonary valve regurgitation. Pericardium No pericardial effusion. Aorta Normal size aortic root and proximal ascending aorta. Dilation, aneurysm or dissection. Grade 3 atheroma noted in proximal descending aorta CONCLUSIONS 1. Normal left ventricular cavity size andsystolic function. Left ventricular ejection fraction is estimated at 55 %. No regional wall motion abnormalities. 2. No left atrial or left atrial appendage thrombus Freida Andrea MD (Electronically Signed) Final Date: 26 March 2023 13:38 S
--- NOTE | 2023-03-19 10:55 | ECG_ITS ---
[facility] Test Date: 2023-03-19 Pat Name: Gamal Burk Department: Room: Gender: Male Straight Line Edger: : 1940 Requested By: Freida Andrea Order Number: [id number] Marcus MD: Freida Andrea M.D. Measurements Intervals [place] Rate: 72 P: 0 KS: 0 QRS: -68 QRSD: 158 T: 92 QT: 435 QTc: 477 Interpretive Statements ELECTRONIC VENTRICULAR PACEMAKER ABNORMAL RHYTHM ECG Compared to ECG 02/02/2023 13:15:27 Myocardial infarct finding no longer present T-wave abnormality no longer present Possible ischemia no longer present Electronically Signed On 03-19-2023 13:40:21 CDT by Freida Andrea M.D. [id number]
[2023-03-19 11:13] VITALS: BP 146/75; PULSE 70; RESP 18; TEMP 36.9; O2SAT 100
[2023-03-19] MEDS: sodium chloride 0.9% 1,000 ML 30 ML IV (11:20)
[2023-03-19 11:25] LABS: Hemoglobin 11.1 g/dL (11.7-16.6); Mean Corpuscular Hemoglobin 25.5 pg (28.0-34.0); Mean Corpuscular Volume 84.9 fl (80-94); Mean Platelet Volume 10.8 fL (7.4-10.4); Platelet Count 226 10^3/cmm (130-400); Red Blood Count 4.36 10^6/uL (4.1-5.3); Red Cell Distribution Width 16.8 % (12.1-15.1); White Blood Count 11.2 10^3/uL (4.0-10.0)
[2023-03-19 11:54] LABS: Anion Gap 14.8 (5-19); Blood Urea Nitrogen 12 mg/dL (8-23); Calcium 8.7 mg/dL (8.5-10.5); Carbon Dioxide 28 mmol/L (22-29); Chloride 105 mmol/L (98-107); Glucose 92 mg/dL (65-115); Osmolality Calculated 297 mOsm/kg (285-295); Potassium 3.8 mmol/L (3.5-5.1); Sodium 144 mmol/L (136-145)
--- NOTE | 2023-03-19 12:02 | ANES.PREANE2 ---
Pre-Anesthetic Assessment Height/Weight: Height 1.88 m Weight 87.997 kg Temp Pulse Resp BP Pulse Ox O2 Del Method 98.5 F 70 18 146/75 100 Room Air 03/19/23 11:13 03/19/23 11:13 03/19/23 11:13 03/19/23 11:13 03/19/23 11:13 03/19/23 11:13 Preop Diagnosis: Atrial Fibrillation, Cardiomyopathy Operation Date: 03/19/23 12:00 Proposed Procedures p STANLEY(Not Applicable) - Freida Andrea MD s STANLEY/CV [id number] ,I48.91, I42.9,R06.09(Not Applicable) - Freida Andrea MD Familial anesthetic complications: none Last intake: Intake Last Liquid Date 03/18/23 Last Liquid Time 18:30 Last Solid Date 03/18/23 Last Solid Time 18:30 Social No alcohol and No tobacco Exam alert, oriented x 3 and clear to auscultation bilaterally Airway Submandibular: within normal limits Cervical ROM: within normal limits Mallampati: Class I Dentition: false Pulmonary Shortness of Breath CV/HEM Atrial Fibrillation, Arrythmia, Coronary Artery Disease (2005 Stent x2, 2007 x 3), Hypertension and Myocardial Infarction 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 04/06 LV systolic function is mildly reduced LVEF of 40 to 45%. ?Mild global hypokinesis is seen. ?Mild mitral regurgitation is seen.? Mild aortic regurgitation ?noted. 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) Anesthetic Plan ASA status: 3 Anesthesia: MAC Medications/Allergies Home Medications Medication Instructions Recorded Confirmed Last Taken Type hydrocortisone 10 mg tablet 10 mg PO BID 09/07/19 03/19/23 03/18/23 History prednisone 5 mg tablet 5 mg PO DAILY 09/07/19 03/19/23 03/18/23 History pregabalin 300 mg capsule (Lyrica) 300 mg PO DAILY 09/07/19 03/19/23 03/18/23 History hydroxyzine HCl 25 mg tablet 25 mg PO DAILY Itching 10/17/19 03/19/23 03/18/23 History dexlansoprazole 30 mg 60 mg PO DAILY 10/19/19 03/19/23 03/18/23 History capsule,biphase delayed release (Dexilant) nitroglycerin 0.4 mg sublingual 0.4 mg sublingual Q5M PRN Chest 09/25/20 03/19/23 Unknown Rx tablet (Nitrostat) Pain #25 tabs digoxin 125 mcg (0.125 mg) tablet 62.5 mcg PO DAILY 12/12/20 03/19/23 03/19/23 History aspirin 81 mg tablet,delayed 81 mg PO BEDTIME 02/11/21 03/19/23 03/18/23 History release (Aspir-) apixaban 2.5 mg tablet 2.5 mg PO BID #180 tabs 08/14/22 03/19/23 03/19/23 Rx ciprofloxacin HCl 500 mg tablet See Rx Instructions .Route 12/31/22 03/19/23 Unknown History .COMPLEX PRN Outbreak furosemide 20 mg tablet (Lasix) 20 mg PO DAILY PRN Edema 12/31/22 03/19/23 03/15/23 History amiodarone 200 mg tablet 200 mg PO DAILY 03/16/23 03/19/23 03/19/23 History midodrine 2.5 mg tablet 2.5 mg PO TID #90 tabs 03/16/23 03/19/23 03/19/23 Rx Allergies Allergy/AdvReac Type Severity Reaction Status Date / Time amoxicillin [From Augmentin] Allergy Unknown Unknown Verified 03/19/23 11:21 aspirin Allergy Unknown ADR-Heartbu Verified 03/19/23 11:21 rn clavulanic acid Allergy Unknown Unknown Verified 03/19/23 11:21 [From Augmentin] codeine Allergy Unknown ADR-Heartbu Verified 03/19/23 11:21 rn finasteride [From Proscar] Allergy Unknown Unknown Verified 03/19/23 11:21 isosorbide [From Imdur] Allergy Unknown Unknown Verified 03/19/23 11:21 morphine Allergy Unknown ADR-Halluci Verified 03/19/23 11:21 nating rabeprazole [From AcipHex] Allergy Unknown Unknown Verified 03/19/23 11:21 Sulfa (Sulfonamide Allergy Unknown ALGY-Swell Verified 03/19/23 11:21 Antibiotics) Lip/Tongue/Throat adhesive tape Allergy ALGY-Redness Verified 03/19/23 11:21 of Skin Current Medications Generic Name Dose Route Start Last Admin Trade Name Ally PRN Reason Stop Dose Admin Sodium Chloride 1,000 mls @ 30 mls/hr 03/19/23 10:45 03/19/23 11:20 Sodium Chloride 0.9% IV 03/20/23 10:44 30 mls/hr .Q24H LEANN Administration PFSH Anesthesia Medical History Atrial fibrillation BPH loc w urin obs/LUTS Could not tolerate Alpha blockers or 5 alpha reductase inhibitors. CAD (coronary artery disease) Chest pain Chronic cystitis Chronic prostatitis Essential hypertension Gross hematuria Recurrent UTI Surgical History H/O heart artery stent H/O local excision of skin lesion H/O total hip arthroplasty History of back surgery S/P appendectomy S/P cardiac pacemaker procedure S/P hemorrhoidectomy S/P inguinal hernia repair Family History Family/Other Cancer CAD (coronary artery disease) Father , AT AGE 78 No problems noted. Mother , AT AGE 84 CAD (coronary artery disease) Social History Smoking and tobacco status: former smoker Alcohol intake: never Substance/Drug Use: never Adopted: No Caregiver/support person: No Lives independently: No Household members: spouse Marital status: Current occupational status: retired Current gender identity: Male Data Anesthesia 03/19/23 11:11 03/19/23 11:11 Short CBC 03/19/23 Range/Units 11:11 WBC 11.2 H (4.0-10.0) 10^3/uL Hgb 11.1 L (11.7-16.6) g/dL Hct 37.0 L (42.0-52.0) % MCV 84.9 (80-94) fl Plt Count 226 (130-400) 10^3/cmm BMP 03/19/23 11:11 Sodium 144 Potassium 3.8 Chloride 105 Carbon Dioxide 28 BUN 12 Creatinine 1.0 Glucose 92 Calcium 8.7 Cardiac Studies: Echocardiogram 03/16/22 Echocardiogram Ultrasound 02/10/21 Sestamibi Stress Test (Cardiology) 09/22/19
[2023-03-19 12:08] LABS: Absolute Eosinophils 0.1 10^3/cmm (0.0-0.7); Absolute Neutrophil 9.4 10^3/cmm (1.4-6.5); Absolute Segmented Neutrophil 9.4 10/cmm (1.6-7.1); Eosinophils 1 %; Lymphocytes 11 %; Lymphocytes Absolute 1.2 10^3/cmm (1.2-3.4); Monocytes Absolute 0.4 10^3/cmm (0.1-0.6); Platelet Estimate Normal (Normal); Segmented Neutrophils 84 %; Total Cells Counted 100 (0-100)
--- NOTE | 2023-03-19 12:59 | ECG_ITS ---
[facility] Test Date: 2023-03-19 Pat Name: Gamal Burk Department: Room: Gender: Male Data Reviewer: : 1940 Requested By: Freida Andrea Order Number: [id number] Marcus MD: Freida Andrea M.D. Measurements Intervals [place] Rate: 79 P: 269 OR: 366 QRS: -68 QRSD: 154 T: 93 QT: 437 QTc: 501 Interpretive Statements ELECTRONIC ATRIAL PACEMAKER ELECTRONIC VENTRICULAR PACEMAKER ABNORMAL RHYTHM ECG Compared to ECG 03/19/2023 11:14:30 No significant changes Electronically Signed On 03-19-2023 13:39:48 CDT by Freida Andrea M.D. [id number]
--- NOTE | 2023-03-19 13:01 | W.PM.OPSUD ---
Surgery/Procedure H&P Update DATE OF PROCEDURE: March 19, 2023 DATE H&P PERFORMED: 03/16/23 H&P UPDATE INFORMATION: I have reviewed H&P completed within last 30 days, I have examined patient prior to procedure and No changes to prior documentation PREOP DIAGNOSIS: Atrial Fibrillation, Cardiomyopathy PRIMARY INDICATION FOR PROCEDURE: Atrial fibrillation, cardiomyopathy PLANNED PROCEDURE: Operation Date: 03/19/23 12:00 Proposed Procedures p STANLEY(Not Applicable) - Freida Andrea MD s STANLEY/CV [id number] ,I48.91, I42.9,R06.09(Not Applicable) - Freida Andrea MD
[2023-03-19 13:05] VITALS: BP 152/76; PULSE 75; RESP 14; TEMP 36.7; O2SAT 98
[2023-03-19 13:21] VITALS: BP 152/77; PULSE 72; RESP 16; TEMP 36.7; O2SAT 98
--- NOTE | 2023-03-19 23:08 | P.OP_ITS ---
Operative Report Date of procedure: March 19, 2023 Pre-op diagnosis: Preop Diagnosis Atrial Fibrillation, Cardiomyopathy Post-op diagnosis: Atrial fibrillation, cardiomyopathy Brief History: 82 yo man with past medical h/o atrial fibrillation previously on sotalol and now on amiodarone, s/p PPM, CAD, HTN, BPH, CHF and HLD. ?He had 5 stents put in 2005 and 2007. He underwent echocardiogram that showed a decrease in cardiac function.?He had coronary angiogram last fall that showed mild CAD.? He had? pacemaker checked that showed atrial fibrillation 100% of the time.? He has had previous cardioversions.? He thinks he is more tired and dizzy than usual. He is here for STANLEY and CV. Procedure: STANLEY Procedure note Indication: [Symptomatic atrial fibrillation] Sedation: Propofol by anesthesia The patient was brought down to the GI lab. Procedure was explained to the patient in detail and informed consent was obtained. Timeout was called. . After time out was called patient received sedation. Pads were placed anteroposteriorly. The probe was inserted on first attempt. No blood on the probe post procedure. Prelim report: No left atrial or left atrial appendage mass or thrombus visualized. No ASD or PFO identified. Full report to follow. Cardioversion procedure note. Indication: Symptomatic atrial fibrillation Anticoagulation: [ Eliquis] After ensuring No LA/SONJA thrombus, he received 150 J of synchronized biphasic shock ?1 with restorationist of normal sinus rhythm/ AV paced rhythm. Patient tolerated the procedure well. Recovery: [in unit] Disposition: Patient to be discharged later today on Eliquis 5 mg BID
== END 2023-03-19 13:35 | disposition home or self-care (01) ==
PROVIDERS: Anesthesiology; PCP Family Medicine; Visit Provider Internal Medicine Cardiovascular Disease
PROC: (CPT 93312; principal; 2023-03-19 12:00)
PROC: 5A2204Z Restoration of Cardiac Rhythm, Single (ICD-10-PCS; 2023-03-19 12:00)
DX: I48.91 Unspecified atrial fibrillation (principal); I42.9 Cardiomyopathy, unspecified; I25.10 Atherosclerotic heart disease of native coronary artery without angina pectoris; I11.0 Hypertensive heart disease with heart failure; N40.0 Benign prostatic hyperplasia without lower urinary tract symptoms; I50.9 Heart failure, unspecified; E78.5 Hyperlipidemia, unspecified; Z95.0 Presence of cardiac pacemaker
CPT/HCPCS: 36415; 80048; 85007; 85027; 92960; 93005; 93312; 93320; 93325; J2371; J2704; J7030

== ENCOUNTER → 2023-03-26 11:24 | Outpatient (BNVA) | payer MEDICARE, MEDICAID, SELFPAY | PROVIDERS: PCP Family Medicine; Visit Provider Internal Medicine Cardiovascular Disease | DX: I48.91 Unspecified atrial fibrillation (principal); Z95.0 Presence of cardiac pacemaker; I25.10 Atherosclerotic heart disease of native coronary artery without angina pectoris; I10 Essential (primary) hypertension; I42.9 Cardiomyopathy, unspecified; Z95.5 Presence of coronary angioplasty implant and graft; R07.9 Chest pain, unspecified; Z87.891 Personal history of nicotine dependence; R94.31 Abnormal electrocardiogram [ECG] [EKG] | CPT/HCPCS: 93005; 99214 ==

== ENCOUNTER → 2023-07-07 14:49 | Outpatient (BNVA) | payer MEDICARE, MEDICAID, SELFPAY | PROVIDERS: PCP Family Medicine; Visit Provider Internal Medicine Cardiovascular Disease | DX: R42 Dizziness and giddiness (principal); I48.19 Other persistent atrial fibrillation; I42.9 Cardiomyopathy, unspecified; I25.10 Atherosclerotic heart disease of native coronary artery without angina pectoris; Z95.0 Presence of cardiac pacemaker; Z87.891 Personal history of nicotine dependence; Z79.01 Long term (current) use of anticoagulants; I10 Essential (primary) hypertension | CPT/HCPCS: 99214 ==

== ENCOUNTER → 2023-08-04 12:45 | Outpatient (BNVA) | payer MEDICARE, MEDICAID, SELFPAY | PROVIDERS: PCP Family Medicine; Visit Provider Internal Medicine Cardiovascular Disease | DX: Z95.0 Presence of cardiac pacemaker (principal); I48.19 Other persistent atrial fibrillation; Z95.5 Presence of coronary angioplasty implant and graft; I25.10 Atherosclerotic heart disease of native coronary artery without angina pectoris; R07.9 Chest pain, unspecified; I10 Essential (primary) hypertension; R06.09 Other forms of dyspnea; I42.9 Cardiomyopathy, unspecified; Z79.01 Long term (current) use of anticoagulants; Z87.891 Personal history of nicotine dependence | CPT/HCPCS: 99214 ==

== ENCOUNTER 2023-08-17 09:19 | Outpatient (RCR) | payer MEDICARE, MEDICAID, SELFPAY | END 2023-09-15 23:59 | disposition home or self-care (01) | LOC: SPT 09:19 | PROVIDERS: Visit Provider Family Medicine | DX: R42 Dizziness and giddiness (principal) | CPT/HCPCS: 95992; 97161 ==

== ENCOUNTER → 2024-02-02 12:13 | Outpatient (BNVA) | payer MEDICARE, MEDICAID, SELFPAY | PROVIDERS: Visit Provider Internal Medicine Cardiovascular Disease | DX: I95.1 Orthostatic hypotension (principal); Z95.0 Presence of cardiac pacemaker; Z95.5 Presence of coronary angioplasty implant and graft; I25.10 Atherosclerotic heart disease of native coronary artery without angina pectoris; I48.19 Other persistent atrial fibrillation; I10 Essential (primary) hypertension; R06.09 Other forms of dyspnea; I42.9 Cardiomyopathy, unspecified; Z79.01 Long term (current) use of anticoagulants; Z87.891 Personal history of nicotine dependence | CPT/HCPCS: 99214 ==

== ENCOUNTER → 2024-05-29 09:12 | Outpatient (BNVA) | payer MEDICARE, MEDICAID, SELFPAY | PROVIDERS: Visit Provider Nurse Practitioner Family | DX: Z01.810 Encounter for preprocedural cardiovascular examination (principal); C44.41 Basal cell carcinoma of skin of scalp and neck; Z87.891 Personal history of nicotine dependence; R42 Dizziness and giddiness; I48.91 Unspecified atrial fibrillation; Z79.01 Long term (current) use of anticoagulants | CPT/HCPCS: 99214 ==

== ENCOUNTER 2024-06-18 09:45 | Emergency (ER) | payer MEDICARE, MEDICAID, SELFPAY ==
[2024-06-18 09:47] VITALS: BP 217/96; PULSE 87; RESP 20; TEMP 37.1; O2SAT 96
[2024-06-18 10:16] LABS: Bilirubin Urine Negative (Negative); Blood Urine 3+ (Negative); Glucose Urine UA Negative (Normal); Ketones Urine Negative (Negative); Leukocyte Esterase Urine Trace (Negative); Nitrate Urine Negative (Negative); Protein Urine 2+ (Negative); Specific Gravity, Urine 1.018 (1.005-1.030); Urine Appearance Clear (CLEAR); Urine Color Yellow (Yellow)
[2024-06-18 10:21] LABS: Add Urine Microscopic? YES; Bacteria Urine None Seen /hpf; Hyaline Casts Urine 2.87 /lpf; RBC Urine 51-100 /hpf (0-2); Squamous Epithelial Cell Urine 0-5 /hpf (0-5)
[2024-06-18 10:28] LABS: Add Urine Culture? Yes
[2024-06-18 10:32] VITALS: BP 166/73; PULSE 72; RESP 17; O2SAT 99
--- NOTE | 2024-06-18 10:34 | CTR_ITS ---
PROCEDURE INFORMATION: Exam: CT Abdomen And Pelvis Without Contrast Exam date and time: 06/18/2024 11:40 AM Age: 83 years old Clinical indication: Abdominal pain; Flank; Left; Additional info: Flank pain, left TECHNIQUE: Imaging protocol: Computed tomography of the abdomen and pelvis without contrast. Radiation optimization: All CT scans at this facility use at least one of these dose optimization techniques: automated exposure control; mA and/or kV adjustment per patient size (includes targeted exams where dose is matched to clinical indication); or iterative reconstruction. COMPARISON: CT abdomen pelvis wo/w [id number] 06/03/2021 8:47 AM RADIATION DOSE METRICS: Total DLP (mGy-cm): 571.41 FINDINGS: Pleural spaces: Small bilateral pleural effusions [id number] . Coronary arteries: severe coronary artery calcifications predominantly along the LAD. Liver: Normal. No mass. Gallbladder and biliary ducts: There has been a cholecystectomy. Pancreas: Normal. No ductal dilation. Spleen: The spleen demonstrates punctate calcifications, consistent with remote granulomatous organism exposure. Adrenal glands: Normal. No mass. Kidneys and ureters: There is an obstructing renal stone at the left UVJ measuring 0.6 centimeters with mild upstream hydroureteronephrosis of the left kidney. There are bilateral low attenuating renal cysts Stomach and bowel: Stomach, small bowel, and large bowel are nondilated. Scattered colonic diverticula without any evidence of acute diverticulitis. Appendix: No evidence of appendicitis. Intraperitoneal space: Unremarkable. No free air. No significant fluid collection. Vasculature: Scattered calcified atherosclerotic plaques of the abdominal aorta and iliac arteries without significant stenosis. Lymph nodes: Unremarkable. No enlarged lymph nodes. Urinary bladder: There is diffuse bladder wall thickening and scattered diverticuli. Reproductive: Enlarged prostate with nodular indentation of the bladder base. Bones/joints: Surgical changes are incidentally noted in the lower lumbar spine. There is a right hip arthroplasty Soft tissues: Unremarkable. CT/CT abdomen pelvis wo con [id number] IMPRESSION: 1. There is an obstructing renal stone at the left UVJ measuring 0.6 centimeters with mild upstream hydroureteronephrosis of the left kidney. 2. Diverticulosis without any evidence of acute diverticulitis. 3. Prostatomegaly with nodular indentation of the bladder base. Defer to clinical and laboratory assessment/PSA levels. 4. Small bilateral pleural effusions [id number]-right . 5. Severe coronary artery calcifications predominantly along the LAD. COMMENTS: Consistent with the [employer]'s Incidental Findings Committee white paper (J Am Tali Radiol 2018): Any incidental renal lesion less than 1 cm or classified as too small to characterize, or any incidental cystic renal lesion characterized as simple-appearing, is likely benign. No follow-up imaging is recommended for these lesions per consensus recommendations based on imaging criteria.
[2024-06-18 10:39] LABS: Basophils # 0.1 10^3/uL (0.0-0.1); Basophils % 0.9 %; Eosinophils # 0.5 10^3/uL (0.0-0.8); Hematocrit 32.2 % (37-53); Lymphocytes # 1.4 10^3/uL (0.8-4.8); Lymphocytes % 10.7 %; Mean Corpuscular HGB Conc 28.9 g/dL (30-55); Mean Corpuscular Hemoglobin 22.6 pg (27-33); Mean Corpuscular Volume 78.3 fl (82-101); Mean Platelet Volume 11.5 fL (7.4-10.4); Monocytes % 7.6 %; Neutrophils # 9.77 10^3/uL (1.8-7.7); Neutrophils % 76.2 %; Nucleated Red Blood Cells % 0 %; Platelet Count 289 10^3/cmm (157-399); Red Blood Count 4.11 10^6/uL (3.85-5.65); Red Cell Distribution Width 17.8 % (12.1-15.1); White Blood Count 12.81 10^3/uL (3.29-11.43)
[2024-06-18 11:06] LABS: Blood Urea Nitrogen 13 mg/dL (8-23); Calcium 9.1 mg/dL (8.5-10.5); Carbon Dioxide 30 mmol/L (22-29); Chloride 105 mmol/L (98-107); Creatinine Clr Calc Pharmacy 51.4733; Glucose 94 mg/dL (65-115); Osmolality Calculated 302 mOsm/kg (285-295); Sodium 146 mmol/L (136-145)
[2024-06-18] MEDS: acetaminophen 500 mg Tablet 1000 MG PO (11:37)
[2024-06-18 11:44] VITALS: BP 181/78; PULSE 72; RESP 16; O2SAT 99
--- NOTE | 2024-06-18 12:45 | ED_ITS ---
HPI - Abdominal Pain 2 General: Chief Complaint: Abdominal Pain Stated Complaint: left flank pain Time Seen by Provider: 06/18/24 10:03 History of Present Illness: This patient is an 83-year-old white male who presents to the ER with dysuria, left lower quadrant pain and left flank pain. Symptoms started yesterday. He is concerned he may have another urinary tract infection. He has not had a fever. Associated Symptoms: Reports dysuria Related Data Home Medications Medication Instructions Recorded Confirmed hydrocortisone 10 mg tablet 10 mg PO BID 09/07/19 06/18/24 prednisone 5 mg tablet 5 mg PO DAILY 09/07/19 06/18/24 pregabalin 300 mg capsule (Lyrica) 300 mg PO DAILY 09/07/19 06/18/24 hydroxyzine HCl 25 mg tablet 25 mg PO DAILY Itching 10/17/19 06/18/24 digoxin 125 mcg (0.125 mg) tablet 62.5 mcg PO DAILY 12/12/20 06/18/24 furosemide 20 mg tablet (Lasix) 20 mg PO DAILY PRN Edema 12/31/22 06/18/24 dexlansoprazole 60 mg 60 mg PO DAILY 07/07/23 06/18/24 capsule,biphase delayed release levothyroxine 75 mcg tablet 75 mcg PO QAM 07/07/23 06/18/24 amiodarone 200 mg tablet 200 mg PO DAILY 05/29/24 06/18/24 midodrine 2.5 mg tablet See Rx Instructions .Route .COMPLEX 06/18/24 06/18/24 Previous Rx's Medication Instructions Recorded nitroglycerin 0.4 mg sublingual 0.4 mg sublingual Q5M PRN Chest 09/25/20 tablet (Nitrostat) Pain #25 tabs apixaban 2.5 mg tablet 2.5 mg PO BID #180 tabs 08/04/23 ciprofloxacin HCl 500 mg tablet 500 mg PO BID #20 tabs 06/18/24 (Cipro) hydrocodone 5 mg-acetaminophen 325 1 tab PO Q6H PRN pain #20 tabs 06/18/24 mg tablet tamsulosin 0.4 mg capsule (Flomax) 0.4 mg PO DAILY #7 caps 06/18/24 Allergies Allergy/AdvReac Type Severity Reaction Status Date / Time amoxicillin [From Augmentin] Allergy Unknown Unknown Verified 05/29/24 09:16 aspirin Allergy Unknown ADR-Heartbu Verified 05/29/24 09:16 rn clavulanic acid Allergy Unknown Unknown Verified 05/29/24 09:16 [From Augmentin] codeine Allergy Unknown ADR-Heartbu Verified 05/29/24 09:16 rn finasteride [From Proscar] Allergy Unknown Unknown Verified 05/29/24 09:16 isosorbide [From Imdur] Allergy Unknown Unknown Verified 05/29/24 09:16 morphine Allergy Unknown ADR-Halluci Verified 05/29/24 09:16 nating rabeprazole [From AcipHex] Allergy Unknown Unknown Verified 05/29/24 09:16 Sulfa (Sulfonamide Allergy Unknown ALGY-Swell Verified 05/29/24 09:16 Antibiotics) Lip/Tongue/Throat adhesive tape Allergy ALGY-Redness Verified 05/29/24 09:16 of Skin Review of Systems 2 General: Reports: 10 or more systems reviewed and unremarkable except in HPI and below : Reports: flank pain and dysuria PFSH ED 2 PFSH: Medical History Orthostatic hypotension Anticoagulation adequate with anticoagulant therapy Chronic prostatitis Chronic cystitis Essential hypertension Atrial fibrillation Chest pain CAD (coronary artery disease) Gross hematuria BPH loc w urin obs/LUTS Could not tolerate Alpha blockers or 5 alpha reductase inhibitors. Recurrent UTI Surgical History History of back surgery S/P hemorrhoidectomy S/P appendectomy H/O total hip arthroplasty S/P inguinal hernia repair H/O heart artery stent H/O local excision of skin lesion S/P cardiac pacemaker procedure Family History Family/Other Cancer CAD (coronary artery disease) Father , AT AGE 78 No problems noted. Mother , AT AGE 84 CAD (coronary artery disease) Social History Smoking and tobacco/nicotine status: former use of tobacco/nicotine Alcohol intake: never Substance/Drug Use: never Adopted: No Caregiver/support person: No Lives independently: No Household members: spouse Marital status: Current occupational status: retired Current gender identity: Male Physical Exam 2 Const: COMMON NORMALS: no acute distress, patient oriented x3 and no limitations GENERAL APPEARANCE: cooperative HENMT: COMMON NORMALS: normocephalic, atraumatic, Normal nasal mucous membranes and turbinates present, moist oral mucous membranes and oropharynx normal HEAD & SCALP: normal to inspection, normocephalic and atraumatic F LAI & SINUS: normal facial exam NOSE: Normal nasal mucous membranes and turbinates present Eye: COMMON NORMALS: Equal, round and reactive pupils present, EOMs intact bilaterally and conjunctivae normal GENERAL EYE: appearance normal, both eyes and all related structures CONJUNCTIVA: Yes conjunctivae normal PUPIL: Yes Equal, round and reactive pupils present Neck/C-Spine: COMMON NORMALS: supple and no JVD Chest: COMMONS NORMALS: normal inspection of the chest Resp: COMMON NORMALS: normal respiratory effort and clear to auscultation bilaterally AUSCULTATION: clear to auscultation bilaterally Cardio: COMMON NORMALS: no JVD, regular rate, regular rhythm, No gallops present (Cardio), No murmurs present (Cardio) and No rub (Cardio) RATE: r egular rate RHYTHM: regular rhythm GI: COMMON NORMALS: Normal to inspection, nondistended, normoactive bowel sounds present, Soft to palpation and non-tender AUSCULTATION: Yes normoactive bowel sounds PALPATION: Yes Soft to palpation : COMMON NORMALS: Yes no CVA tenderness BLADDER/KIDNEY EXAM: Yes no CVA tenderness Back/Pelvis: COMMON NORMALS: no CVA tenderness and thoracic and lumbar spine normal to inspection Extremity: COMMON NORMALS: normal to inspection Neuro: COMMON NORMALS: patient oriented x3 and CN's II-XII intact bilaterally Psych: COMMON NORMALS: mental status grossly normal, Normal thought process present and cooperative THOUGHT PROCESS: Normal thought process present Skin: COMMON NORMALS: no rashes or lesions noted, turgor normal and no jaundice GENERAL SKIN EXAM: no rashes or lesions noted and turgor normal Course 2 Vital Signs: Vital signs: Vital Signs Temperature 98.8 F 06/18/24 09:47 Pulse Rate 72 06/18/24 11:44 Respiratory Rate 16 06/18/24 11:44 Blood Pressure 181/78 06/18/24 11:44 Pulse Oximetry 99 06/18/24 11:44 Oxygen Delivery Me thod Room Air 06/18/24 09:47 MDM - Abdominal Pain Medical Decision Making CBC revealed a white blood cell count of 12.8. Hemoglobin 9.3. BMP was normal. Urine analysis revealed red blood cells and few white blood cells. No bacteria. CT scan of the abdomen pelvis reveals a 6 mm stone at the left UVJ with mild hydronephrosis. Discussed the diagnosis with the patient. We did give him Tylenol for his pain in the emergency department. Evidently he hallucinates with IV narcotics and cannot take anti-inflammatory medication because he is on an anticoagulant. He was discharged in stable condition with prescriptions for Flomax and ciprofloxacin. Evidently he cannot take hydrocodone so I did prescribe that. Recommended he push fluids and follow-up with his primary care provider in 3 days for recheck. If he continues to have symptoms evening may need referral to urology. Lab Data 06/18/24 09:50 06/18/24 09:50 Labs/Radiology: Radiology Impressions Abdomen/Pelvis CT 06/18/24 10:34 IMPRESSION: 1. There is an obstructing renal stone at the left UVJ measuring 0.6 centimeters with mild upstream hydroureteronephrosis of the left kidney. 2. Diverticulosis without any evidence of acute diverticulitis. 3. Prostatomegaly with nodular indentation of the bladder base. Defer to clinical and laboratory assessment/PSA levels. 4. Small bilateral pleural effusions [id number]-right . 5. Severe coronary artery calcifications predominantly along the LAD. COMMENTS: Consistent with the [employer]'s Incidental Findings Committee white paper (J Am Tali Radiol 2018): Any incidental renal lesion less than 1 cm or classified as too small to characterize, or any incidental cystic renal lesion characterized as simple-appearing, is likely benign. No follow-up imaging is recommended for these lesions per consensus recommendations based on imaging criteria. Laboratory Results WBC 12.81 10^3/uL (3.29-11.43) H 06/18/24 09:50 RBC 4.11 10^6/uL (3.85-5.65) 06/18/24 09:50 Hgb 9.30 g/dL (11.27-16.99) L 06/18/24 09:50 Hct 32.2 % (37-53) L 06/18/24 09:50 MCV 78.3 fl (82-101) L 06/18/24 09:50 MCH 22.6 pg (27-33) L 06/18/24 09:50 MCHC 28.9 g/dL (30-55) L 06/18/24 09:50 RDW 17.8 % (12.1-15.1) H 06/18/24 09:50 Plt Count 289 10^3/cmm (157-399) 06/18/24 09:50 MPV 11.5 fL (7.4-10.4) H 06/18/24 09:50 Neut % (Auto) 76.2 % 06/18/24 09:50 Lymph % (Auto) 10.7 % 06/18/24 09:50 [place] % (Auto) 7.6 % 06/18/24 09:50 Eos % (Auto) 4.0 % 06/18/24 09:50 Baso % (Auto) 0.9 % 06/18/24 09:50 Neut # (Auto) 9.77 10^3/uL (1.8-7.7) H 06/18/24 09:50 Lymph # (Auto) 1.4 10^3/uL (0.8-4.8) 06/18/24 09:50 [place] # (Auto) 1.0 10^3/uL (0.2-0.9) H 06/18/24 09:50 Eos # (Auto) 0.5 10^3/uL (0.0-0.8) 06/18/24 09:50 Baso # (Auto) 0.1 10^3/uL (0.0-0.1) 06/18/24 09:50 Nucleated RBC % (auto) 0 % 06/18/24 09:50 Nucleated RBCs # 0.0 /100WBC 06/18/24 09:50 Sodium 146 mmol/L (136-145) H 06/18/24 09:50 Potassium 4.0 mmol/L (3.5-5.1) 06/18/24 09:50 Chloride 105 mmol/L (98-107) 06/18/24 09:50 Carbon Dioxide 30 mmol/L (22-29) H 06/18/24 09:50 Anion Gap 15.0 (5-19) 06/18/24 09:50 BUN 13 mg/dL (8-23) 06/18/24 09:50 Creatinine 1.3 mg/dL (0.7-1.2) H 06/18/24 09:50 GFR Calculation Not Reportable 06/18/24 09:50 Glucose 94 mg/dL (65-115) 06/18/24 09:50 Calculated Osmolality 302 mOsm/kg (285-295) H 06/18/24 09:50 Calcium 9.1 mg/dL (8.5-10.5) 06/18/24 09:50 Urine Color Yellow (Yellow) 06/18/24 10:05 Urine Appearance Clear (CLEAR) 06/18/24 10:05 Urine pH 6.0 (5-7) 06/18/24 10:05 Ur Specific [place] 1.018 (1.005-1.030) 06/18/24 10:05 Urine Protein 2+ (Negative) A 06/18/24 10:05 Urine Glucose (UA) Negative (Normal) 06/18/24 10:05 Urine Ketones Negative (Negative) 06/18/24 10:05 Urine Blood 3+ (Negative) A 06/18/24 10:05 Urine Nitrate Negative (Negative) 06/18/24 10:05 Urine Bilirubin Negative (Negative) 06/18/24 10:05 Urine Urobilinogen 1.0 mg/dL (Negative) 06/18/24 10:05 Ur Leukocyte Esterase Trace (Negative) A 06/18/24 10:05 Urine RBC 51-100 /hpf (0-2) H 06/18/24 10:05 Urine WBC 6-10 /hpf (0-5) 06/18/24 10:05 Ur Squamous Epith Cells 0-5 /hpf (0-5) 06/18/24 10:05 Amorphous Sediment Not Reportable 06/18/24 10:05 Urine Bacteria None seen /hpf (NONE) 06/18/24 10:05 Hyaline Casts 2.87 /lpf 06/18/24 10:05 All radiology interpretation(s) finalized by discharge Discharge Plan Discharge Patient Disposition: Home Clinical Impression: Calculus, ureteral Condition: Stable Prescriptions: New ciprofloxacin HCl [Cipro] 500 mg tablet 500 mg PO BID Qty: 20 0RF tamsulosin [Flomax] 0.4 mg capsule 0.4 mg PO DAILY Qty: 7 0RF hydrocodone-acetaminophen 5-325 mg tablet 1 tab PO Q6H PRN (Reason: pain) Qty: 20 0RF No Action digoxin 125 mcg (0.125 mg) tablet 62.5 mcg PO DAILY dexlansoprazole 60 mg capsule,biphase delayed releas 60 mg PO DAILY levothyroxine 75 mcg tablet 75 mcg PO QAM apixaban 2.5 mg tablet 2.5 mg PO BID Qty: 180 5RF amiodarone 200 mg tablet 200 mg PO DAILY Lasix 20 mg tablet 20 mg PO DAILY PRN (Reason: Edema) Nitrostat 0.4 mg tablet, sublingual 0.4 mg SUBLINGUAL Q5M PRN (Reason: Chest Pain) Qty: 25 0RF prednisone 5 mg Tablet 5 mg PO DAILY hydrocortisone 10 mg Tablet 10 mg PO BID pregabalin [Lyrica] 300 mg Capsule 300 mg PO DAILY hydroxyzine HCl 25 mg tablet 25 mg PO DAILY midodrine 2.5 mg tablet See Rx Instructions .ROUTE .COMPLEX Rx Instructions: Take 2 tablets in the AM and 2 tablets in the PM. Do not give last dose of day after 6PM or within 4 hrs of bedtime 2 tabs AM, 2 tabs PM Discharge Orders: Discharge ED (Routine); Ordered 06/18/24 Ordered By: Sachin Cox Patient Instructions: Kidney Stones, Opioid Safety, Pain Management Activity Restrictions/Additional Instructions: Follow-up with your primary care physician in 3 days for recheck. Coding Level of Care Code ED Iron Piler for Jude Mercado
[2024-06-18 12:50] VITALS: BP 164/75; PULSE 74; O2SAT 100
== END 2024-06-18 12:57 | disposition home or self-care (01) ==
PROVIDERS: Emergency Provider Emergency Medicine
DX: N20.1 Calculus of ureter (principal); Z87.891 Personal history of nicotine dependence; I10 Essential (primary) hypertension; I25.10 Atherosclerotic heart disease of native coronary artery without angina pectoris
CPT/HCPCS: 74176; 80048; 81001; 85025; 87086; 99284

== ENCOUNTER → 2024-06-30 09:36 | Outpatient (BNVA) | payer MEDICARE, MEDICAID, SELFPAY | PROVIDERS: Visit Provider Internal Medicine Cardiovascular Disease | DX: Z95.0 Presence of cardiac pacemaker (principal); I25.10 Atherosclerotic heart disease of native coronary artery without angina pectoris; I48.19 Other persistent atrial fibrillation; I50.9 Heart failure, unspecified; Z87.891 Personal history of nicotine dependence; R42 Dizziness and giddiness | CPT/HCPCS: 99214 ==

== ENCOUNTER 2024-07-04 15:56 | Outpatient (CLI) | payer MEDICARE, MEDICAID, SELFPAY | END 2024-07-04 15:57 | disposition home or self-care (01) | LOC: LAB 15:58 | PROVIDERS: Visit Provider Specialist | DX: C44.319 Basal cell carcinoma of skin of other parts of face (principal); D48.5 Neoplasm of uncertain behavior of skin | CPT/HCPCS: 88304; 88331 ==

== ENCOUNTER 2024-07-10 10:03 | Emergency (ER) | payer MEDICARE, MEDICAID, SELFPAY ==
--- NOTE | 2024-07-10 10:09 | ECG_ITS ---
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1940 Requested By: Felipe Lanier Order Number: [id number] Marcus MD: JACQUELINE GILLIS Measurements Intervals [place] Rate: 78 P: 0 MT: 0 QRS: -62 QRSD: 154 T: 93 QT: 425 QTc: 487 Interpretive Statements ELECTRONIC VENTRICULAR PACEMAKER ABNORMAL RHYTHM ECG Compared to ECG 03/26/2023 11:28:40 Atrial-paced complex(es) or rhythm no longer present T-wave abnormality no longer present Possible ischemia no longer present Electronically Signed On 07-10-2024 18:53:49 VETERINARY BACTERIOLOGIST by JACQUELINE GILLIS [email or web address]
[2024-07-10 10:14] VITALS: BP 152/70; PULSE 77; RESP 16; TEMP 36.6; O2SAT 97
[2024-07-10 10:18] VITALS: BP 152/70; PULSE 73; RESP 26
--- NOTE | 2024-07-10 10:23 | ED_ITS ---
HPI - Syncope 2 General: Chief Complaint: Syncope Stated Complaint: rapid response Time Seen by Provider: 07/10/24 10:08 History of Present Illness: 83-year-old male presents emergency room after syncopal episode and the ear nose and throat clinic at the medical office [facility] today. No chest pain, no dyspnea. He has had several other episodes of syncope in the past. He denies having any previous cardia evaluation for this. He is not having any chest pain or dyspnea at this time. Pt was having sutures removed at the ENT clinic when this occured. Associated symptoms: Deny abdominal pain, chest pain or fever(s) Related Data Home Medications Medication Instructions Recorded Confirmed hydrocortisone 10 mg tablet 10 mg PO BID 09/07/19 07/10/24 prednisone 5 mg tablet 5 mg PO DAILY 09/07/19 07/10/24 pregabalin 300 mg capsule (Lyrica) 300 mg PO DAILY 09/07/19 07/10/24 hydroxyzine HCl 25 mg tablet 25 mg PO DAILY Itching 10/17/19 07/10/24 digoxin 125 mcg (0.125 mg) tablet 62.5 mcg PO DAILY 12/12/20 07/10/24 furosemide 20 mg tablet (Lasix) 20 mg PO DAILY PRN Edema 12/31/22 07/10/24 dexlansoprazole 60 mg 60 mg PO DAILY 07/07/23 07/10/24 capsule,biphase delayed release amiodarone 200 mg tablet 200 mg PO DAILY 05/29/24 07/10/24 midodrine 2.5 mg tablet See Rx Instructions .Route .COMPLEX 06/18/24 07/10/24 Previous Rx's Medication Instructions Recorded nitroglycerin 0.4 mg sublingual 0.4 mg sublingual Q5M PRN Chest 09/25/20 tablet (Nitrostat) Pain #25 tabs apixaban 2.5 mg tablet 2.5 mg PO BID #180 tabs 08/04/23 ciprofloxacin HCl 500 mg tablet 500 mg PO BID #20 tabs 06/18/24 (Cipro) hydrocodone 5 mg-acetaminophen 325 1 tab PO Q6H PRN pain #20 tabs 06/18/24 mg tablet Allergies Allergy/AdvReac Type Severity Reaction Status Date / Time amoxicillin [From Augmentin] Allergy Unknown Unknown Verified 06/30/24 09:45 aspirin Allergy Unknown ADR-Heartbu Verified 06/30/24 09:45 rn clavulanic acid Allergy Unknown Unknown Verified 06/30/24 09:45 [From Augmentin] codeine Allergy Unknown ADR-Heartbu Verified 06/30/24 09:45 rn finasteride [From Proscar] Allergy Unknown Unknown Verified 06/30/24 09:45 isosorbide [From Imdur] Allergy Unknown Unknown Verified 06/30/24 09:45 morphine Allergy Unknown ADR-Halluci Verified 06/30/24 09:45 nating rabeprazole [From AcipHex] Allergy Unknown Unknown Verified 06/30/24 09:45 Sulfa (Sulfonamide Allergy Unknown ALGY-Swell Verified 06/30/24 09:45 Antibiotics) Lip/Tongue/Throat adhesive tape Allergy ALGY-Redness Verified 06/30/24 09:45 of Skin Review of Systems 2 Const: Denies: fever(s) or chills Card: Denies: chest pain Resp: Denies: dyspnea GI: Denies: abdominal pain : Denies: dysuria, urinary frequency or urinary urgency Musc: Denies: neck pain or back pain Skin/Breast: Denies: rash PFSH ED 2 PFSH: Medical History Orthostatic hypotension Anticoagulation adequate with anticoagulant therapy Chronic prostatitis Chronic cystitis Essential hypertension Atrial fibrillation Chest pain CAD (coronary artery disease) Gross hematuria BPH loc w urin obs/LUTS Could not tolerate Alpha blockers or 5 alpha reductase inhibitors. Recurrent UTI Surgical History History of back surgery S/P hemorrhoidectomy S/P appendectomy H/O total hip arthroplasty S/P inguinal hernia repair H/O heart artery stent H/O local excision of skin lesion S/P cardiac pacemaker procedure Family History Family/Other Cancer CAD (coronary artery disease) Father , AT AGE 78 No problems noted. Mother , AT AGE 84 CAD (coronary artery disease) Social History Smoking and tobacco/nicotine status: former use of tobacco/nicotine Alcohol intake: never Substance/Drug Use: never Adopted: No Caregiver/support person: No Lives independently: No Household members: spouse Marital status: Current occupational status: retired Current gender identity: Male Physical Exam 2 Const: COMMON NORMALS: no acute distress GENERAL APPEARANCE: cooperative and comfortable ORIENTATION/CONSCIOUSNESS: Yes awake, Yes oriented to person, Yes oriented to place and Yes oriented to time HENMT: COMMON NORMALS: normocephalic, atraumatic and hearing grossly normal bilaterally HEAD & SCALP: normocephalic and atraumatic Resp: COMMON NORMALS: normal respiratory effort, No retractions, No use of accessory muscles and clear to auscultation bilaterally AUSCULTATION: clear to auscultation bilaterally Cardio: COMMON NORMALS: regular rate, regular rhythm and No murmurs present (Cardio) RATE: regular rate RHYTHM: regular rhythm GI: COMMON NORMALS: Soft to palpation and No hepatosplenomegaly present A USCULTATION: Yes normoactive bowel sounds PALPATION: Yes Soft to palpation, No Tenderness to palpation present (GI), No Guarding due to palpation present (GI) and Yes No hepatosplenomegaly present Extremity: COMMON NORMALS: normal to inspection, capillary refill normal, no clubbing, cyanosis or edema, no calf tenderness and no pedal edema Neuro: SENSORIUM/ORIENTATION: Yes oriented to person, Yes oriented to place and Yes oriented to time Skin: COMMON NORMALS: no rashes or lesions noted GENERAL SKIN EXAM: no rashes or lesions noted Course 2 Vital Signs: Vital signs: Vital Signs Temperature 97.8 F 07/10/24 10:14 Pulse Rate 72 07/10/24 14:30 Respiratory Rate 14 07/10/24 14:30 Blood Pressure 162/80 07/10/24 14:30 Pulse Oximetry 93 07/10/24 14:30 Oxygen Delivery Me thod Room Air 07/10/24 11:35 MDM - Syncope Medical Decision Making Patient had syncopal episode has had multiple of these in the past. His symptoms have resolved now he is anemic. He is down a gram of hemoglobin from a month ago. He should follow-up on this he is on apixaban. He has no further symptoms he was up and ambulating without difficulty. His troponins trended negative. He would like to go home we will set him up for an outpatient echocardiogram he should follow-up with his primary care doctor regarding his hemoglobin within the next week. Medical Records I reviewed the patient's medical records. Lab Data I reviewed the patient's lab results. 07/10/24 10:30 07/10/24 10:30 Radiology Impressions Chest X-Ray 07/10/24 11:40 Impression: 1. Patchy opacity in left lower lobe which could represent atelectasis, pneumonia and/or effusion. 2. Minimal patchy opacity in right lower lobe. 3. Cardiac pacemaker, cardiomegaly and atherosclerosis. Laboratory Results WBC 10.48 10^3/uL (3.29-11.43) 07/10/24 10:30 RBC 3.84 10^6/uL (3.85-5.65) L 07/10/24 10:30 Hgb 8.50 g/dL (11.27-16.99) L 07/10/24 10:30 Hct 28.6 % (37-53) L 07/10/24 10:30 MCV 74.5 fl (82-101) L 07/10/24 10:30 MCH 22.1 pg (27-33) L 07/10/24 10:30 MCHC 29.7 g/dL (30-55) L 07/10/24 10:30 RDW 18.0 % (12.1-15.1) H 07/10/24 10:30 Plt Count 265 10^3/cmm (157-399) 07/10/24 10:30 MPV 10.7 fL (7.4-10.4) H 07/10/24 10:30 Neut % (Auto) 80.2 % 07/10/24 10:30 Lymph % (Auto) 8.2 % 07/10/24 10:30 [place] % (Auto) 6.6 % 07/10/24 10:30 Eos % (Auto) 2.5 % 07/10/24 10:30 Baso % (Auto) 1.0 % 07/10/24 10:30 Neut # (Auto) 8.40 10^3/uL (1.8-7.7) H 07/10/24 10:30 Lymph # (Auto) 0.9 10^3/uL (0.8-4.8) 07/10/24 10:30 [place] # (Auto) 0.7 10^3/uL (0.2-0.9) 07/10/24 10:30 Eos # (Auto) 0.3 10^3/uL (0.0-0.8) 07/10/24 10:30 Baso # (Auto) 0.1 10^3/uL (0.0-0.1) 07/10/24 10:30 Nucleated RBC % (auto) 0 % 07/10/24 10:30 Nucleated RBCs # 0.0 /100WBC 07/10/24 10:30 Sodium 141 mmol/L (136-145) 07/10/24 10:30 Potassium 3.7 mmol/L (3.5-5.1) 07/10/24 10:30 Chloride 103 mmol/L (98-107) 07/10/24 10:30 Carbon Dioxide 27 mmol/L (22-29) 07/10/24 10:30 Anion Gap 14.7 (5-19) 07/10/24 10:30 BUN 16 mg/dL (8-23) 07/10/24 10:30 Creatinine 1.2 mg/dL (0.7-1.2) 07/10/24 10:30 GFR Calculation Not Reportable 07/10/24 10:30 Glucose 90 mg/dL (65-115) 07/10/24 10:30 Calculated Osmolality 293 mOsm/kg (285-295) 07/10/24 10:30 Calcium 8.4 mg/dL (8.5-10.5) L 07/10/24 10:30 Total Bilirubin 0.5 mg/dL (0.15-1.2) 07/10/24 10:30 AST 14 U/L (0-40) 07/10/24 10:30 ALT 9 U/L (0-41) 07/10/24 10:30 Alkaline Phosphatase 73 U/L (40-130) 07/10/24 10:30 Troponin T Baseline 39 ng/L (0-15) H 07/10/24 10:30 Troponin T 120 Minute 31.00 ng/L (0-15) H 07/10/24 12:55 Delta Troponin T -8.00 ABS# (0-10) L 07/10/24 12:55 Total Protein 5.7 g/dL (6.6-8.7) L 07/10/24 10:30 Albumin 3.4 g/dL (3.5-5.2) L 07/10/24 10:30 Globulin 2.3 g/dL (1.3-4.6) 07/10/24 10:30 All radiology interpretation(s) finalized by discharge Discharge Plan Discharge Patient Disposition: Home Clinical Impression: Syncope, Anemia Condition: Stable Prescriptions: No Action digoxin 125 mcg (0.125 mg) tablet 62.5 mcg PO DAILY dexlansoprazole 60 mg capsule,biphase delayed releas 60 mg PO DAILY apixaban 2.5 mg tablet 2.5 mg PO BID Qty: 180 5RF amiodarone 200 mg tablet 200 mg PO DAILY Lasix 20 mg tablet 20 mg PO DAILY PRN (Reason: Edema) Nitrostat 0.4 mg tablet, sublingual 0.4 mg SUBLINGUAL Q5M PRN (Reason: Chest Pain) Qty: 25 0RF prednisone 5 mg Tablet 5 mg PO DAILY hydrocortisone 10 mg Tablet 10 mg PO BID pregabalin [Lyrica] 300 mg Capsule 300 mg PO DAILY hydroxyzine HCl 25 mg tablet 25 mg PO DAILY midodrine 2.5 mg tablet See Rx Instructions .ROUTE .COMPLEX Rx Instructions: Take 2 tablets in the AM and 2 tablets in the PM. Do not give last dose of day after 6PM or within 4 hrs of bedtime 2 tabs AM, 2 tabs PM ciprofloxacin HCl [Cipro] 500 mg tablet 500 mg PO BID Qty: 20 0RF hydrocodone-acetaminophen 5-325 mg tablet 1 tab PO Q6H PRN (Reason: pain) Qty: 20 0RF Discharge Orders: Discharge ED (Routine); Ordered 07/10/24 Ordered By: Felipe Mcclellan Discharge Diet: Usual diet Discharge Activity: Increase activity as tolerated Patient Instructions: Syncope (ED), Opioid Safety, Pain Management Activity Restrictions/Additional Instructions: Thank you for choosing [facility] for your healthcare needs today. It is very important that you follow up as instructed or that you return to the Emergency Department should you have concerns or if your condition changes or worsens in any way. You are seen after a syncopal episode (passing out) at the ENT clinic. Your cardiac enzymes were normal. You do have some mild anemia you should follow-up with your primary care doctor with this. Will set you up for an outpatient echocardiogram and consultation with cardiology regarding the episodes of syncope. If you have further problems return to the emergency room. Coding Level of Care Code ED [employer] Sales Representative for Jude Mercado
[2024-07-10 10:42] LABS: Basophils # 0.1 10^3/uL (0.0-0.1); Eosinophils # 0.3 10^3/uL (0.0-0.8); Eosinophils % 2.5 %; Hematocrit 28.6 % (37-53); Lymphocytes # 0.9 10^3/uL (0.8-4.8); Lymphocytes % 8.2 %; Mean Corpuscular HGB Conc 29.7 g/dL (30-55); Mean Corpuscular Hemoglobin 22.1 pg (27-33); Mean Corpuscular Volume 74.5 fl (82-101); Mean Platelet Volume 10.7 fL (7.4-10.4); Monocytes # 0.7 10^3/uL (0.2-0.9); Monocytes % 6.6 %; Neutrophils % 80.2 %; Nucleated Red Blood Cells % 0 %; Platelet Count 265 10^3/cmm (157-399); Red Blood Count 3.84 10^6/uL (3.85-5.65); White Blood Count 10.48 10^3/uL (3.29-11.43)
[2024-07-10 10:59] LABS: Alanine Aminotransferase 9 U/L (0-41); Albumin Level 3.4 g/dL (3.5-5.2); Alkaline Phosphatase 73 U/L (40-130); Anion Gap 14.7 (5-19); Aspartate Amino Transferase 14 U/L (0-40); Blood Urea Nitrogen 16 mg/dL (8-23); Calcium 8.4 mg/dL (8.5-10.5); Carbon Dioxide 27 mmol/L (22-29); Chloride 103 mmol/L (98-107); Creatinine Clr Calc Pharmacy 55.7627; Globulin 2.3 g/dL (1.3-4.6); Glucose 90 mg/dL (65-115); Osmolality Calculated 293 mOsm/kg (285-295); Potassium 3.7 mmol/L (3.5-5.1); Sodium 141 mmol/L (136-145); Total Bilirubin 0.5 mg/dL (0.15-1.2); Total Protein 5.7 g/dL (6.6-8.7)
[2024-07-10 11:26] LABS: Troponin(5th) Baseline 39 ng/L (0-15)
[2024-07-10 11:35] VITALS: BP 167/77; PULSE 73; RESP 18; O2SAT 100
--- NOTE | 2024-07-10 11:40 | XR_ITS ---
WS: [id number] Portable AP upright chest, 07/10/2024 Clinical Data: dyspnea/cough Comparison: Portable chest, 09/11/2020 Findings: There is a patchy opacity in left lower lobe which could represent atelectasis, pneumonia a nd effusion. The right base also shows mild patchy opacity. No nodules, masses or effusions are seen. The heart is slightly enlarged. The pulmonary vascularity is not increased. No pneumothorax is seen . The aortic arch and descending thoracic aorta show calcification and tortuosity. There is a 2-lead cardiac pacemaker with the generator in the left axilla. There is osteoarthritis of both shoulders. M onitor leads are on the chest wall. XR/XR chest 1V portable [id number] Impression: 1. Patchy opacity in left lower lobe which could represent atelectasis, pneumon ia and/or effusion. 2. Minimal patchy opacity in right lower lobe. 3. Cardiac pacemaker, cardiomegaly and atherosclerosis.
--- NOTE | 2024-07-10 13:09 | ECG_ITS ---
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
[2024-07-10 14:30] VITALS: BP 162/80; PULSE 72; RESP 14; O2SAT 93
--- NOTE | 2024-07-13 08:10 | DCPLANNER ---
faxed outpatient order to scheduling
== END 2024-07-10 14:21 | disposition home or self-care (01) ==
PROVIDERS: Emergency Provider Family Medicine
DX: R55 Syncope and collapse (principal); D64.9 Anemia, unspecified; Z87.891 Personal history of nicotine dependence; Z95.0 Presence of cardiac pacemaker; I25.10 Atherosclerotic heart disease of native coronary artery without angina pectoris; I10 Essential (primary) hypertension
CPT/HCPCS: 36415; 71045; 80053; 84484; 85025; 93005; 99285

== ENCOUNTER 2024-07-24 13:20 | Outpatient (CLI) | payer MEDICARE, MEDICAID, SELFPAY ==
--- NOTE | 2024-07-24 13:24 | USCV_ITS ---
Gamal Burk Age: 83 Gender: M : 1940 Exam Date: 07/24/2024 13:28 Ordering Phys: Felipe Mcclellan DO Technologist: CT Exam Location: [facility] Indication: BP: 154 / 67 HR: 74 Rhythm: Sinus Technical Quality: Adequate MEASUREMENTS (Male / Female) Normal Values 2D ECHO LVOT Diameter 2.2 cm LV Ejection Fraction MOD 4C 55.9 % LV Ejection Fraction MOD 2C 61.4 % LV Ejection Fraction 2C AL 60.8 % LA Diameter 5.0 cm RA Systolic Volume 4C AL 78.2 ml RA Systolic Volume 4C MOD 79.2 ml LA Sys Volume AL 82.0 cm cubed LA Sys Volume Index AL 38.9 cm cubed/m squared Aorta at Sinotubular Diameter 2.9 cm IVC Diameter 2.0 cm M-MODE LA Ao Ratio MM 1.5 AV Cusp Separation MM 2.1 cm DOPPLER AV Peak Velocity 182.0 cm/s LVOT Peak Velocity 106.0 cm/s AV Area Cont Eq vti 2.2 cm squared AV Area Cont Eq pk 2.3 cm squared MV Peak Velocity 114.0 cm/s MV Area PHT 3.8 cm squared Mitral E to A Ratio 2.5 TV Peak Velocity 305.5 cm/s TR Peak Velocity 332.0 cm/s TR Peak Gradient 44.1 mmHg TR Mean Velocity 232.0 cm/s TR Mean Gradient 25.7 mmHg TR Velocity Time Integral 78.9 cm TV Peak E Velocity 91.0 cm/s PV Peak Velocity 173.0 cm/s FINDINGS Left Ventricle Normal LV size and ejection fraction of 61%. Moderately hypokinetic basal inferior wall segment Right Ventricle Pacemaker wire is noted Right Atrium Mildly increased right atrial size. Pacemaker wire is noted Left Atrium Mildly increased left atrial size. Mitral Valve Mild mitral valve regurgitation. Aortic Valve Mild aortic valve regurgitation. Thickened aortic valve. Aortic valve sclerosis. Tricuspid Valve Trace tricuspid valve regurgitation. Estimated pulmonary artery peak systolic pressure possibly within normal limits Pulmonic Valve No gross abnormalities noted Pericardium Normal pericardium without effusion. Aorta Normal ascending aorta dimension. IVC Inferior vena cava not visualized. CONCLUSIONS Normal LV size and ejection fraction of 61%. Moderately hypokinetic basal inferior wall segment. Mild biatrial enlargement Mildly increased left atrial size. Mild mitral valve regurgitation. Mild aortic valve regurgitation. Thickened aortic valve. Aortic valve sclerosis. Trace tricuspid valve regurgitation. Estimated pulmonary artery peak systolic pressure 47 mmHg-mild pulmonary hypertension Normal pericardium without effusion. Compared to the study from December 2021, there is significant improvement in the LV ejection fraction from 40 - 45% to 61% Dr Uzair Goodwin MD [facility] (Electronically Signed) Final Date: 25 July 2024 08:12 S
== END 2024-07-24 13:21 | disposition home or self-care (01) ==
LOC: RAD 13:21
PROVIDERS: Visit Provider Family Medicine
DX: I95.1 Orthostatic hypotension (principal); R94.39 Abnormal result of other cardiovascular function study; Z95.0 Presence of cardiac pacemaker; I35.2 Nonrheumatic aortic (valve) stenosis with insufficiency
CPT/HCPCS: 93306

== ENCOUNTER 2024-09-06 12:05 | Outpatient (CLI) | payer MEDICARE, MEDICAID, SELFPAY ==
[2024-09-06 12:50] LABS: Basophils # 0.1 10^3/uL (0.0-0.1); Basophils % 1.3 %; Eosinophils # 0.2 10^3/uL (0.0-0.8); Eosinophils % 1.9 %; Hematocrit 30.4 % (37-53); Lymphocytes # 0.9 10^3/uL (0.8-4.8); Mean Corpuscular HGB Conc 27.6 g/dL (30-55); Mean Corpuscular Hemoglobin 20.8 pg (27-33); Mean Corpuscular Volume 75.4 fl (82-101); Mean Platelet Volume 10.5 fL (7.4-10.4); Monocytes # 0.4 10^3/uL (0.2-0.9); Monocytes % 5.1 %; Neutrophils # 6.58 10^3/uL (1.8-7.7); Neutrophils % 79.7 %; Nucleated Red Blood Cells % 0 %; Platelet Count 299 10^3/cmm (157-399); Red Blood Count 4.03 10^6/uL (3.85-5.65); Red Cell Distribution Width 18.8 % (12.1-15.1); White Blood Count 8.26 10^3/uL (3.29-11.43)
[2024-09-06 13:12] LABS: Alanine Aminotransferase 6 U/L (0-41); Albumin Level 3.3 g/dL (3.5-5.2); Alkaline Phosphatase 84 U/L (40-130); Aspartate Amino Transferase 12 U/L (0-40); Blood Urea Nitrogen 13 mg/dL (8-23); Calcium 8.6 mg/dL (8.5-10.5); Carbon Dioxide 30 mmol/L (22-29); Chloride 106 mmol/L (98-107); Creatine Phosphokinase 24 U/L (39-308); Globulin 2.3 g/dL (1.3-4.6); Glucose 97 mg/dL (65-115); Osmolality Calculated 298 mOsm/kg (285-295); Sodium 144 mmol/L (136-145); Total Bilirubin 0.3 mg/dL (0.15-1.2); Total Protein 5.6 g/dL (6.6-8.7)
== END 2024-09-06 12:06 | disposition home or self-care (01) ==
LOC: LAB 12:07
PROVIDERS: PCP Family Medicine; Visit Provider Dermatology
DX: Z79.899 Other long term (current) drug therapy (principal)
CPT/HCPCS: 36415; 80053; 82550; 85025

== ENCOUNTER 2024-09-11 10:46 | Inpatient (IN) | payer MEDICARE, MEDICAID, SELFPAY ==
[2024-09-11] VITALS (17 sets, daily range): BP systolic 117–136; BP diastolic 55–76; PULSE 69–82; RESP 14–22; TEMP 36.6–37.1; O2SAT 90–98; BMI 23.6
--- NOTE | 2024-09-11 10:54 | XR_ITS ---
WS: [id number] Exam: XR chest 1V portable [id number] Date/Time of Exam: 09/11/2024 11:00 AM Reason For Exam: Chest pain Comparison 07/10/2024. Diffuse infiltrate throughout the RIGHT upper lobe suggesting pneumonia. Prominent RIGHT pulmonary hi lum unchanged in appearance. Small LEFT basal pleural effusion. Heart size top limits normal. The med iastinum is normal in contour. Permanent cardiac pacer overlies LEFT chest. Bony structures are intac t. XR/XR chest 1V portable [id number] IMPRESSION: 1. Diffuse infiltrate in the RIGHT upper lobe suggesting pneumonia. 2. Small LEFT basal pleural effusion.
--- NOTE | 2024-09-11 10:57 | ECG_ITS ---
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 Measurements Intervals [place] Rate: 75 P: 0 OK: 0 QRS: -59 QRSD: 150 T: 141 QT: 407 QTc: 455 Interpretive Statements ELECTRONIC VENTRICULAR PACEMAKER ST ELEVATION NOTED IN SETTING OF PACED RHYTHM, NOT MEETING STEMI CRITERIA Compared to ECG 07/10/2024 13:09:38 ST (T wave) deviation now present Myocardial infarct finding now present Electronically Signed On 09-14-2024 12:45:26 FATBACK TRIMMER by Shubham Biswas M.D. [email or web address]
--- NOTE | 2024-09-11 11:15 | ED_ITS ---
HPI - Chest Pain 2 General: Chief Complaint: Chest Pain Stated Complaint: cp Time Seen by Provider: 09/11/24 10:54 Source: patient Mode of arrival: ambulatory Limitations: no limitations History of Present Illness: 83-year-old male who states that he has been having chest pain over the last week. He states has been intermittent in nature has a history of coronary artery disease had stents in the past. States he woke up with chest pain again this morning states nitro will help and the pain returns he denies any cough denies any fever. Associated symptoms: Deny abdominal pain, dyspnea, fever(s), nausea or vomiting Related Data Home Medications Medication Instructions Recorded Confirmed hydrocortisone 10 mg tablet 10 mg PO BID 09/07/19 09/11/24 prednisone 5 mg tablet 5 mg PO DAILY 09/07/19 09/11/24 pregabalin 300 mg capsule (Lyrica) 300 mg PO DAILY 09/07/19 09/11/24 hydroxyzine HCl 25 mg tablet 25 mg PO DAILY Itching 10/17/19 09/11/24 digoxin 125 mcg (0.125 mg) tablet 62.5 mcg PO DAILY 12/12/20 09/11/24 dexlansoprazole 60 mg 60 mg PO DAILY 07/07/23 09/11/24 capsule,biphase delayed release amiodarone 200 mg tablet 200 mg PO DAILY 05/29/24 09/11/24 midodrine 2.5 mg tablet See Rx Instructions .Route .COMPLEX 06/18/24 09/11/24 docusate sodium 100 mg capsule 100 mg PO DAILY 09/11/24 09/11/24 ferrous sulfate 325 mg (65 mg 650 mg PO TID 09/11/24 09/11/24 iron) tablet (FeroSul) levothyroxine 75 mcg tablet 75 mcg PO DAILY 09/11/24 09/11/24 triamcinolone acetonide 0.1 % 1 applic topical BID 09/11/24 09/11/24 topical cream (Triderm) Previous Rx's Medication Instructions Recorded nitroglycerin 0.4 mg sublingual 0.4 mg sublingual Q5M PRN Chest 09/25/20 tablet (Nitrostat) Pain #25 tabs apixaban 2.5 mg tablet 2.5 mg PO BID #180 tabs 08/23/24 Allergies Allergy/AdvReac Type Severity Reaction Status Date / Time amoxicillin [From Augmentin] Allergy Unknown Unknown Verified 06/30/24 09:45 aspirin Allergy Unknown ADR-Heartbu Verified 06/30/24 09:45 rn clavulanic acid Allergy Unknown Unknown Verified 06/30/24 09:45 [From Augmentin] codeine Allergy Unknown ADR-Heartbu Verified 06/30/24 09:45 rn finasteride [From Proscar] Allergy Unknown Unknown Verified 06/30/24 09:45 isosorbide [From Imdur] Allergy Unknown Unknown Verified 06/30/24 09:45 morphine Allergy Unknown ADR-Halluci Verified 06/30/24 09:45 nating rabeprazole [From AcipHex] Allergy Unknown Unknown Verified 06/30/24 09:45 Sulfa (Sulfonamide Allergy Unknown ALGY-Swell Verified 06/30/24 09:45 Antibiotics) Lip/Tongue/Throat adhesive tape Allergy ALGY-Redness Verified 06/30/24 09:45 of Skin Review of Systems 2 Const: Denies: fever(s), chills, body aches or change in appetite ENMT: Denies: throat pain or dental pain Card: Reports: chest pain Resp: Denies: dyspnea GI: Denies: abdominal pain, nausea, vomiting or diarrhea Musc: Denies: neck pain or back pain Skin/Breast: Denies: rash Neuro: Denies: headache(s) PFSH ED 2 PFSH: Medical History Orthostatic hypotension Anticoagulation adequate with anticoagulant therapy Chronic prostatitis Chronic cystitis Essential hypertension Atrial fibrillation Chest pain CAD (coronary artery disease) Gross hematuria BPH loc w urin obs/LUTS Could not tolerate Alpha blockers or 5 alpha reductase inhibitors. Recurrent UTI Surgical History History of back surgery S/P hemorrhoidectomy S/P appendectomy H/O total hip arthroplasty S/P inguinal hernia repair H/O heart artery stent H/O local excision of skin lesion S/P cardiac pacemaker procedure Family History Family/Other Cancer CAD (coronary artery disease) Father , AT AGE 78 No problems noted. Mother , AT AGE 84 CAD (coronary artery disease) Social History Smoking and tobacco/nicotine status: former use of tobacco/nicotine Alcohol intake: never Substance/Drug Use: never Adopted: No Caregiver/support person: No Lives independently: No Household members: spouse Marital status: Current occupational status: retired Current gender identity: Male Physical Exam 2 Const: COMMON NORMALS: no acute distress, patient oriented x3 and healthy appearing HENMT: COMMON NORMALS: normocephalic and atraumatic HEAD & SCALP: n ormocephalic and atraumatic Eye: COMMON NORMALS: Equal, round and reactive pupils present and EOMs intact bilaterally PUPIL: Yes Equal, round and reactive pupils present Neck/C-Spine: COMMON NORMALS: full ROM and supple Chest: COMMONS NORMALS: normal inspection of the chest and normal palpation of entire chest wall Resp: COMMON NORMALS: normal respiratory effort, No retractions, No use of accessory muscles and clear to auscultation bilaterally AUSCULTATION: clear to auscultation bilaterally Cardio: COMMON NORMALS: regular rate, regular rhythm and No murmurs present (Cardio) RATE: regular rate RHYTHM: regular rhythm GI: COMMON NORMALS: Normal to inspection, nondistended, normoactive bowel sounds present, Soft to palpation, non-tender and no masses PALPATION: Yes Soft to palpation Extremity: COMMON NORMALS: normal to inspection and full ROM Neuro: COMMON NORMALS: patient oriented x3, moves all extremities and no focal motor deficits Psych: COMMON NORMALS: mental status grossly normal, Normal thought process present and cooperative THOUGHT PROCESS: Normal thought process present Skin: COMMON NORMALS: no rashes or lesions noted and no wounds GENERAL SKIN EXAM: no rashes or lesions noted Course 2 Vital Signs: Vital signs: Vital Signs Temperature 98.3 F 09/11/24 10:50 Pulse Rate 82 09/11/24 10:50 Respiratory Rate 16 09/11/24 12:14 Blood Pressure 136/72 09/11/24 10:50 Pulse Oximetry 93 09/11/24 12:14 Oxygen Delivery Me thod Room Air 09/11/24 10:50 MDM - Chest Pain Medical Decision Making Patient presents here with chest pain he does have an elevated troponin consistent with NSTEMI he is continue to have pain here patient was seen in the ER by pattern changer and repairer who is taking patient to Sales Enablement Lead at this time for unstable angina Medical Records I reviewed the patient's medical records. Lab Data I reviewed the patient's lab results. 09/11/24 11:12 09/11/24 11:12 Radiology Impressions Chest X-Ray 09/11/24 10:54 IMPRESSION: 1. Diffuse infiltrate in the RIGHT upper lobe suggesting pneumonia. 2. Small LEFT basal pleural effusion. Laboratory Results WBC 11.19 10^3/uL (3.29-11.43) 09/11/24 11:12 RBC 4.57 10^6/uL (3.85-5.65) 09/11/24 11:12 Hgb 9.40 g/dL (11.27-16.99) L 09/11/24 11:12 Hct 34.2 % (37-53) L 09/11/24 11:12 MCV 74.8 fl (82-101) L 09/11/24 11:12 MCH 20.6 pg (27-33) L 09/11/24 11:12 MCHC 27.5 g/dL (30-55) L 09/11/24 11:12 RDW 19.4 % (12.1-15.1) H 09/11/24 11:12 Plt Count 372 10^3/cmm (157-399) 09/11/24 11:12 MPV 10.9 fL (7.4-10.4) H 09/11/24 11:12 Neut % (Auto) 83.5 % 09/11/24 11:12 Lymph % (Auto) 7.9 % 09/11/24 11:12 [place] % (Auto) 5.1 % 09/11/24 11:12 Eos % (Auto) 1.2 % 09/11/24 11:12 Baso % (Auto) 1.3 % 09/11/24 11:12 Neut # (Auto) 9.36 10^3/uL (1.8-7.7) H 09/11/24 11:12 Lymph # (Auto) 0.9 10^3/uL (0.8-4.8) 09/11/24 11:12 [place] # (Auto) 0.6 10^3/uL (0.2-0.9) 09/11/24 11:12 Eos # (Auto) 0.1 10^3/uL (0.0-0.8) 09/11/24 11:12 Baso # (Auto) 0.1 10^3/uL (0.0-0.1) 09/11/24 11:12 Nucleated RBC % (auto) 0 % 09/11/24 11:12 Nucleated RBCs # 0.0 /100WBC 09/11/24 11:12 Sodium 141 mmol/L (136-145) 09/11/24 11:12 Potassium 4.0 mmol/L (3.5-5.1) 09/11/24 11:12 Chloride 101 mmol/L (98-107) 09/11/24 11:12 Carbon Dioxide 27 mmol/L (22-29) 09/11/24 11:12 Anion Gap 17.0 (5-19) 09/11/24 11:12 BUN 20 mg/dL (8-23) 09/11/24 11:12 Creatinine 1.3 mg/dL (0.7-1.2) H 09/11/24 11:12 GFR Calculation Not Reportable 09/11/24 11:12 Glucose 124 mg/dL (65-115) H 09/11/24 11:12 Calculated Osmolality 296 mOsm/kg (285-295) H 09/11/24 11:12 Calcium 8.6 mg/dL (8.5-10.5) 09/11/24 11:12 Total Bilirubin 0.4 mg/dL (0.15-1.2) 09/11/24 11:12 AST 72 U/L (0-40) H 09/11/24 11:12 ALT 12 U/L (0-41) 09/11/24 11:12 Alkaline Phosphatase 100 U/L (40-130) 09/11/24 11:12 Troponin T Baseline 1657 ng/L (0-15) H* 09/11/24 11:12 Total Protein 5.8 g/dL (6.6-8.7) L 09/11/24 11:12 Albumin 3.6 g/dL (3.5-5.2) 09/11/24 11:12 Globulin 2.2 g/dL (1.3-4.6) 09/11/24 11:12 All radiology interpretation(s) finalized by discharge Discharge Plan Discharge Patient Disposition: Admitted As Inpatient Clinical Impression: NSTEMI (non-ST elevated myocardial infarction) Condition: Stable Coding Level of Care Code ED [employer] Ware[employer] Driver for Jude Mercado
[2024-09-11 11:21] LABS: Basophils # 0.1 10^3/uL (0.0-0.1); Basophils % 1.3 %; Eosinophils # 0.1 10^3/uL (0.0-0.8); Eosinophils % 1.2 %; Hematocrit 34.2 % (37-53); Lymphocytes # 0.9 10^3/uL (0.8-4.8); Lymphocytes % 7.9 %; Mean Corpuscular HGB Conc 27.5 g/dL (30-55); Mean Corpuscular Hemoglobin 20.6 pg (27-33); Mean Corpuscular Volume 74.8 fl (82-101); Mean Platelet Volume 10.9 fL (7.4-10.4); Monocytes # 0.6 10^3/uL (0.2-0.9); Monocytes % 5.1 %; Neutrophils # 9.36 10^3/uL (1.8-7.7); Neutrophils % 83.5 %; Nucleated Red Blood Cells % 0 %; Platelet Count 372 10^3/cmm (157-399); Red Blood Count 4.57 10^6/uL (3.85-5.65); Red Cell Distribution Width 19.4 % (12.1-15.1); White Blood Count 11.19 10^3/uL (3.29-11.43)
[2024-09-11 11:35] LABS: Alanine Aminotransferase 12 U/L (0-41); Albumin Level 3.6 g/dL (3.5-5.2); Alkaline Phosphatase 100 U/L (40-130); Aspartate Amino Transferase 72 U/L (0-40); Blood Urea Nitrogen 20 mg/dL (8-23); Calcium 8.6 mg/dL (8.5-10.5); Carbon Dioxide 27 mmol/L (22-29); Chloride 101 mmol/L (98-107); Creatinine Clr Calc Pharmacy 51.2485; Globulin 2.2 g/dL (1.3-4.6); Glucose 124 mg/dL (65-115); Osmolality Calculated 296 mOsm/kg (285-295); Sodium 141 mmol/L (136-145); Total Bilirubin 0.4 mg/dL (0.15-1.2); Total Protein 5.8 g/dL (6.6-8.7)
[2024-09-11 11:38] LABS: Troponin(5th) Baseline 1657 ng/L (0-15)
--- NOTE | 2024-09-11 11:57 | PM.CONSULT ---
Providers/Reason For Consult Consulting Physician/Specialty*: Shubham Biswas MD/Cardiology Reason for Consult*: NSTEMI Requesting Physician: Dr Copeland Primary Care Provider: Riaz Lovelace MD History of Present Illness History of Present Illness Gamal Burk is a 83 year old male with a past medical history of coronary artery disease with multiple prior PCI's, atrial fibrillation on Eliquis who presented to hospital with on and off chest pain for 1 week. The day before yesterday got intense. Nitros were improving it. Woke up last night as well with chest pain. Still ongoing pain however has improved some. Radiates to the back. EKG shows paced rhythm. Initial troponin is over 1600. Review of Systems Const: Denies: fever(s), chills, body aches or change in appetite ENMT: Denies: throat pain or dental pain Card: Reports: chest pain Resp: Denies: dyspnea GI: Denies: abdominal pain, nausea, vomiting or diarrhea Musc: Denies: neck pain or back pain Skin/Breast: Denies: rash Neuro: Denies: headache(s) Medications/Allergies Home Medications Medication Instructions Recorded Confirmed Last Taken Type hydrocortisone 10 mg tablet 10 mg PO BID 09/07/19 09/11/24 07/10/24 History prednisone 5 mg tablet 5 mg PO DAILY 09/07/19 09/11/24 07/10/24 History pregabalin 300 mg capsule (Lyrica) 300 mg PO DAILY 09/07/19 09/11/24 07/09/24 History hydroxyzine HCl 25 mg tablet 25 mg PO DAILY Itching 10/17/19 09/11/24 07/10/24 History nitroglycerin 0.4 mg sublingual 0.4 mg sublingual Q5M PRN Chest 09/25/20 09/11/24 Unknown Rx tablet (Nitrostat) Pain #25 tabs digoxin 125 mcg (0.125 mg) tablet 62.5 mcg PO DAILY 12/12/20 09/11/24 07/10/24 History dexlansoprazole 60 mg 60 mg PO DAILY 07/07/23 09/11/24 07/10/24 History capsule,biphase delayed release amiodarone 200 mg tablet 200 mg PO DAILY 05/29/24 09/11/24 07/10/24 History midodrine 2.5 mg tablet See Rx Instructions .Route .COMPLEX 06/18/24 09/11/24 07/10/24 History apixaban 2.5 mg tablet 2.5 mg PO BID #180 tabs 08/23/24 09/11/24 Unknown Rx docusate sodium 100 mg capsule 100 mg PO DAILY 09/11/24 09/11/24 Unknown History ferrous sulfate 325 mg (65 mg 650 mg PO TID 09/11/24 09/11/24 Unknown History iron) tablet (FeroSul) levothyroxine 75 mcg tablet 75 mcg PO DAILY 09/11/24 09/11/24 Unknown History triamcinolone acetonide 0.1 % 1 applic topical BID 09/11/24 09/11/24 Unknown History topical cream (Triderm) Allergies Allergy/AdvReac Type Severity Reaction Status Date / Time amoxicillin [From Augmentin] Allergy Unknown Unknown Verified 06/30/24 09:45 aspirin Allergy Unknown ADR-Heartbu Verified 06/30/24 09:45 rn clavulanic acid Allergy Unknown Unknown Verified 06/30/24 09:45 [From Augmentin] codeine Allergy Unknown ADR-Heartbu Verified 06/30/24 09:45 rn finasteride [From Proscar] Allergy Unknown Unknown Verified 06/30/24 09:45 isosorbide [From Imdur] Allergy Unknown Unknown Verified 06/30/24 09:45 morphine Allergy Unknown ADR-Halluci Verified 06/30/24 09:45 nating rabeprazole [From AcipHex] Allergy Unknown Unknown Verified 06/30/24 09:45 Sulfa (Sulfonamide Allergy Unknown ALGY-Swell Verified 06/30/24 09:45 Antibiotics) Lip/Tongue/Throat adhesive tape Allergy ALGY-Redness Verified 06/30/24 09:45 of Skin PFSH Acute PFSH: Medical History Orthostatic hypotension Anticoagulation adequate with anticoagulant therapy Chronic prostatitis Chronic cystitis Essential hypertension Atrial fibrillation Chest pain CAD (coronary artery disease) Gross hematuria BPH loc w urin obs/LUTS Could not tolerate Alpha blockers or 5 alpha reductase inhibitors. Recurrent UTI Surgical History History of back surgery S/P hemorrhoidectomy S/P appendectomy H/O total hip arthroplasty S/P inguinal hernia repair H/O heart artery stent H/O local excision of skin lesion S/P cardiac pacemaker procedure Family History Family/Other Cancer CAD (coronary artery disease) Father , AT AGE 78 No problems noted. Mother , AT AGE 84 CAD (coronary artery disease) Social History Smoking and tobacco/nicotine status: former use of tobacco/nicotine Alcohol intake: never Substance/Drug Use: never Adopted: No Caregiver/support person: No Lives independently: No Household members: spouse Marital status: Current occupational status: retired Current gender identity: Male Vitals/I&O/Wt Last Vital Signs Temp 98.3 F 09/11/24 10:50 Pulse 82 09/11/24 10:50 Resp 16 09/11/24 10:50 BP 136/72 09/11/24 10:50 Pulse Ox 96 09/11/24 10:50 O2 Del Method Room Air 09/11/24 10:50 Weight last 48 hrs Weight 184 lb Physical Exam Narrative: GENERAL: Patient is alert, awake and oriented x3. HEART: Regular S1 and S2. No murmur, rub or gallop. LUNGS: Clear to auscultate bilaterally. CENTRAL NERVOUS SYSTEM: Grossly nonfocal. EXTREMITIES: Lower extremities with out edema bilaterally. Data 09/11/24 11:12 09/11/24 11:12 A&P Assessment and plan (1) NSTEMI (non-ST elevated myocardial infarction): (2) CAD (coronary artery disease): Qualifiers: Coronary Disease-Associated Artery/Lesion type: [place] artery [place] vs. transplanted heart: [place] heart Associated angina: without angina Qualified Code(s): I25.10 - Atherosclerotic heart disease of [place] coronary artery without angina pectoris (3) Atrial fibrillation: Qualifiers: Atrial fibrillation type: persistent (not longstanding) Qualified Code(s): I48.19 - Other persistent atrial fibrillation (4) Essential hypertension: (5) Dyspnea on exertion: (6) Cardiomyopathy: Plan Patient has presented with high risk non-ST elevation [place]. Because of paced rhythm, EKG findings are not reliable. Still having ongoing chest pain. Initial troponins over 1600. We will urgently take patient to cardiac [place] [employer] [facility] Operator for possible PCI. Risk and benefit of the procedure were discussed. Patient loaded with aspirin, Plavix. Heparin bolus given. Order echocardiogram. Thank you for involving us with care of this patient. Will continue to follow. Please call with questions. Consult Attestations Medical Necessity Statement: Care expected to cross 2 midnights. Patient has presented with non-ST elevation [place] at this point for coronary angiogram with possible PCI. Coding Level of Care Code Acute Code for [facility] Diagnoses NSTEMI (non-ST elevated myocardial infarction) I21.4 Coronary artery disease involving [place] coronary artery of [place] heart without angina pectoris I25.10 Coronary Disease-Associated Artery/Lesion type: [place] artery [place] vs. transplanted heart: [place] heart Associated angina: without angina Persistent atrial fibrillation I48.19 Atrial fibrillation type: persistent (not longstanding) Essential hypertension I10 Dyspnea on exertion R06.09 Cardiomyopathy I42.9
--- NOTE | 2024-09-11 11:58 | XACV_ITS ---
Exam Room: 2 Ht: 188 cm Wt: 83 kg BSA: 2.09 m2 Gender: Male : 1940 Any Known Allergies: Sulfa Exam Priority: Routine Procedure(s): Procedure Description: Diagnostic procedure Procedure Description: PCI procedure Procedure Description: Drug Eluting Coronary Stent Procedure Description: PTCA Procedure Description: Coronary Angiography Diagnostic Cath Status: Urgent Diagnostic Findings * Left Main has mild to moderate 30-40%. * Circumflex has mild to moderate diffuse luminal irregularities. * Right Coronary Artery has patent prior mid vessel stent with moderate ISR. * Proximal to Mid Left Anterior Descending: critical 90- 95% stenosis right before mid LAD stents. Stents have moderate ISR. At distal edge of the stent there is an obstructive 70% stenosis. * Distal Left Anterior Descending: obstructive 70% stenosis, KASIA: 3 flow. * Ramus: obstructive 70% stenosis, KASIA: 3 flow. * Coronary angiography shows right dominance. PCI Status: Urgent PCI Indication: NSTE - ACS Interventional Findings * Proximal to Mid Left Anterior Descendin% stenosis treated with a MDT NC EUPHORA RX 2.23E59HY BALLOON, MDT R YAMILE 3.5X15 JUAN, and MDT NC EUPHORA RX 3.99L03HG BALLOON. 0% residual stenosis, KASIA: 3 flow. * Procedure detail: We engaged left main artery with XB 3.5 guide catheter. Heparin was administered to maintain anticoagulation. Run-through wire was used to cross the stenosis. We predilated the proximal to mid vessel lesion with 2.75 x 12 mm NC balloon. This was followed by placement of 3.5x15 mm resolute Yamile drug-eluting stent. We then predilated the ISR and LAD stents with 2.5 x 15 mm semicompliant balloon. At distal edge of the stent, predilation was performed with the same balloon. We then placed an overlapping distal vessel 2.5 x 18 mm resolute Belt stent. We then postdilated the proximal to mid vessel stent with 3.5 x 20mm NC balloon. At this time we performed final angiogram that showed excellent stent expansion and no residual stenosis. Guidewire and guide catheter were removed. Patient left the Lawn Technician in a stable condition.. * Distal Left Anterior Descendin% stenosis treated with a AB TREK 2.50X15 RX BALLOON, and MDT R YAMILE 2.5X18 JUAN. 0% residual stenosis, KASIA: 3 flow. Conclusions 1. There is critical LAD disease s/p successful revascularization with 2 stents. 2. Mid Left Anterior Descending was treated with a Balloon, Drug Eluting Stent, and Balloon. 3. Distal Left Anterior Descending was treated with a Balloon, and Drug Eluting Stent. Recommendations * Plavix started. Will resume eliquis tomorrow. * Outpatient cardiology follow up in 2 weeks. Interventional RX Recommendation: PCI w/o planned CABG Diagnostic RX Recommendation: PCI w/o planned CABG Anticoagulation: Heparin Pressures Phase:Rest AO : 120 / 59 ( 81 ) @ 12:27:00 PM 119 / 71 ( 91 ) @ 12:35:00 PM 105 / 66 ( 84 ) @ 12:51:00 PM Clinical Evaluation EBL: 5mL-10mL Procedural Details Procedure Consent Obtained. Current Diagnosis : Chest Pain. Pre-Procedure Time Out. Identified patient by full name and date of as verbalized by the patient/guarantor. Does the consent match the physician's order: Yes. Accurate & Complete Informed Consent: Yes. Inpatient/Outpatient History & Physical on Chart: Yes. If H&P is completed, is and addenduem needed: No; If yes, is the addendum complete: N/A. Visualize and Verify Site with Patient/Guarantor: N/A. Relevant Radiology Images available: Yes. Pre-op teaching completed and patient verbalized understanding. The risks, benefits, and alternatives of sedation and/or procedure were discussed by physician. The patient agrees to continue. Procedure started. Physician arrived. [facility] Clinical Fraility Score: 4: Vulnerable. Lawn Technician Indications: ACS > 24 hours. Chest Pain Symptom Assessment: Typical Angina Symptoms. Correct patient, site and procedure confirmed by cath team. Current diagnosis: Chest Pain. PERRLA. Strong, equal hand button sewing machine operator bilaterally. Lungs clear x 5 lobes. IV Site on Arrival: 18 gauge in the right anticubital. IV Fluids: 0.9% NaCl at KVO. 0 mL infused prior to labor relations manager. Oxygen started at 2liters/min via nasal canula. right groin was prepped with chloroprep then draped in the usual sterile fashion. right radial was prepped with chloroprep then draped in the usual sterile fashion. Baseline sample Acquired. HR: 75 BPM. Physician scrubbed in. Immediate Pre-Procedure Time Out. Correct Patient: Yes; Correct Procedure: Yes; Correct Site: Yes; Correct Patient Position: Yes; Correct Supplies: Yes; Dried Flammable Prep: Yes; Blood Products Available: N/A;. Lidocaine 1% infiltrated to the right radial. Arterial access obtained. A 6 barbadian TIG catheter in over wire. Multiple views taken of right coronary artery. Catheter removed over the exchange wire. A 5 barbadian JL3.5 catheter in over wire. Catheter removed over the exchange wire. 6 barbadian XB 3.5 guide catheter was inserted over the wire. Runthrough guidewire was advanced through the guide catheter to lesion in the mid LAD. Inflation number : 1 A MDT NC EUPHORA RX 2.91I52OF BALLOON was prepped and advanced across the Mid LAD , then inflated to 16 THERESA for 0:14 seconds. Inflation number: 2 The MDT NC EUPHORA RX 2.53W24RX BALLOON was reinflated across the Mid LAD, to 16 THERESA for 0:07 seconds. Inflation number: 3 The MDT NC EUPHORA RX 2.71K74NP BALLOON was reinflated across the Mid LAD, to 16 THERESA for 0:06 seconds. Inflation number: 4 The MDT NC EUPHORA RX 2.74U70MI BALLOON was reinflated across the Mid LAD, to 16 THERESA for 0:06 seconds. Balloon out. Results checked. Inflation Number : 5 A MDT R YAMILE 3.5X15 JUAN -Lot Number# _[id number] EXP: 01/19/2027 was prepped and advanced across the Mid LAD. The stent was deployed at 14 THERESA for 0:10 seconds. Stent balloon out over wire. Results checked. Inflation number : 1 A AB TREK 2.50X15 RX BALLOON was prepped and advanced across the Dist LAD , then inflated to 8 THERESA for 0:08 seconds. Inflation number: 2 The AB TREK 2.50X15 RX BALLOON was reinflated across the Dist LAD, to 8 THERESA for 0:07 seconds. Balloon out. Inflation Number : 3 A MDT R YAMILE 2.5X18 JUAN -Lot Number# _[id number] EXP: 04/18/2026 was prepped and advanced across the Dist LAD. The stent was deployed at 12 THERESA for 0:12 seconds. Inflation number: 4 The stent balloon was then re-inflated across the Dist LAD to 12 THERESA for 0:09 seconds. Inflation number: 5 The stent balloon was then re-inflated across the Dist LAD to 16 THERESA for 0:06 seconds. Stent balloon out over wire. Results checked. Inflation number : 6 A MDT NC EUPHORA RX 3.04O09FG BALLOON was prepped and advanced across the Mid LAD , then inflated to 14 THERESA for 0:12 seconds. Inflation number: 7 The MDT NC EUPHORA RX 3.81K39VM BALLOON was reinflated across the Mid LAD, to 18 THERESA for 0:11 seconds. Balloon out. Results checked. Wire out. Guide catheter out. ACT drawn. Results 239 seconds. Therapeutic limits - pre-heparin administration 90-150 seconds and monitoring heparin during a vascular procedure >250 seconds. Vital chart was stopped. A TR Band was successful obtaining hemostatsis at the Right Radial artery insertion site. Post Procedure: Pulses reassessed and unchanged. PERRLA. Strong, equal hand button sewing machine operator bilaterally. No VTE prophylaxis required. Medication's Wasted: Lidocaine 1% = 18 mL. Medication's Wasted: Nitro = 49.6 mcg. Medication's Wasted: Other = Fentanyl 75mcg Versed 1 mg. Total IV fluids: 34 mL. Post-op diagnosis: Stent to LAD. Complications: None. Estimated blood loss: 5mL-10mL. Responsiveness - Normal response to verbal stimuli; alert and oriented, PERRLA. Airway - Unaffected, no intervention required; spontaneous ventilation. Circulation: W/N/L, pulses unchanged. Nausea/Vomiting: No. Procedure completed. Patient transferred by bed to CPRU. Access Site Site: Right Radial artery Sheath Size: 6 Fr Hemostasis Method: TR Band Hemostasis Success: Successful Procedure Medications Start: 12:21 PM Stop: 12:21 PM Medication: Versed 1 mg and Fentanyl 25 mcg Amount: 1 Route: I.V. Start: 12:23 PM Stop: 12:23 PM Medication: Nitrogylcerin Amount: 200 mcg Route: I.A. Start: 12:35 PM Stop: 12:35 PM Medication: Heparin Amount: 3000 units Route: I.V. Start: 12:42 PM Stop: 12:42 PM Medication: Heparin Amount: 1000 units Route: I.V. Start: 12:49 PM Stop: 12:49 PM Medication: Nitrogylcerin Amount: 200 mcg Route: I.C. Start: 1:00 PM Stop: 1:00 PM Medication: Heparin Amount: 1000 units Route: I.V. I, the attending physician, have reviewed and verified all procedure medications. Yes, all medications given per verbal order History/Risk Factors Hypertension: Yes Dyslipidemia: No Peripheral Arterial Disease (PAD): No Myocardial Infarction (DE): No Obesity: No Renal Disease: No Tobacco Use: Former Prior Interventions PCI: Yes CABG: No Valve Surgery: No Date of PCI: 04/28/2022 Report Signatures Finalized by Shubham Biswas MD on 09/22/2024 05:32 PM
[2024-09-11] MEDS: heparin 5,000 unit/mL INJ 1 mL 4000 UNIT IVP (12:02)
--- NOTE | 2024-09-11 12:06 | W.PM.OPSUD ---
Surgery/Procedure H&P Update DATE OF PROCEDURE: September 11, 2024 DATE H&P PERFORMED: 09/11/24 H&P UPDATE INFORMATION: I have reviewed H&P completed within last 30 days, I have examined patient prior to procedure and No changes to prior documentation PREOP DIAGNOSIS: NSTEMI PRIMARY INDICATION FOR PROCEDURE: NSTEMI PLANNED PROCEDURE: Left heart cath with possible percutaneous coronary intervention PATIENT REASSESSED PRIOR TO SEDATION, WITH NO CHANGE NOTED: Yes PHYSICAL EXAM: alert, oriented x 3, clear to auscultation bilaterally and regular rate & rhythm AIRWAY EVAL/ANESTHESIA PLAN: normal airway, ASA III, Local Anesthesia, Risks, benefits & alternatives of sedation and/or procedure discussed and Patient agrees to continue as planned ADDITIONAL INFORMATION: Moderate sedation
[2024-09-11] MEDS: aspirin 81 mg Chew Tablet 324 MG PO (12:14)
[2024-09-11] MEDS: morphine 4 mg/mL SDV 1 mL IVP (12:14)
[2024-09-11] MEDS: ondansetron 2 mg/ML SDV 2 mL 4 MG IVP (12:15)
[2024-09-11] MEDS: clopidogrel 300 mg Tablet 600 MG PO (12:15)
--- NOTE | 2024-09-11 12:57 | ECG_ITS ---
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 Measurements Intervals [place] Rate: 70 P: 0 NM: 0 QRS: -53 QRSD: 158 T: 97 QT: 432 QTc: 468 Interpretive Statements ELECTRONIC VENTRICULAR PACEMAKER Compared to ECG 09/11/2024 11:26:37 No significant changes Electronically Signed On 09-16-2024 13:54:31 BIOMETRICS INSTRUCTOR by Shubham Biswas M.D. [id number]
--- NOTE | 2024-09-11 13:03 | PM.PROC ---
Procedure Note: Date of procedure: 09/11/24 Pre-procedure diagnosis: NSTEMI Post-procedure diagnosis: other (Severe proximal to mid LAD stenosis. Severe distal LAD stenosis s/p successful revascularization with 2 stents) Procedure: Left heart cath with possible PCI: Left main artery has mild to moderate stenosis. Proximal to mid LAD has severe 90% stenosis status post successful revascularization with 1 stent. Distal LAD has severe stenosis status post successful revascularization with 1 stent. RCA has diffuse in-stent restenosis. Left circumflex artery is patent with luminal irregularities. Continue Plavix. We will resume Eliquis tomorrow morning. Can stop heparin. Performing Provider: Shubham Biswas Estimated blood loss (mL): 10 Complications: None Condition: stable Disposition: floor Coding Level of Care Code Acute Code for Jude Mercado
--- NOTE | 2024-09-11 13:10 | PC.NURSE ---
Recovery Note Received patient from lab tester in CPRU 3 until floor be available. Pt alert and oriented X 3. Breathing even and non-labored on 2L NC. Patient denies pain. TR band to right wrist, no signs of bleeding or hematoma. Pt placed on bedside secured entrance monitor. Call light in reach.
[2024-09-11 14:09] LABS: Troponin 5 2HR 1783 ng/L (0-15); Troponin 5 2HR Delta 126 ABS# (0-10)
--- NOTE | 2024-09-11 14:29 | PC.NURSE ---
Patient transferred to CSU from radiographer cardiac catheterization at 1415 with a right radial TR-band.
--- NOTE | 2024-09-11 15:48 | PM.HP ---
Providers/Chief Complaint Admitting Physician: Shubham Biswas M.D Primary Care Provider: Riaz Lovelace MD Chief Complaint: cp History of Present Illness Very pleasant 83-year-old woman, hard of hearing, with history of mild CAD, PPM, atrial fibrillation, on reduced anticoagulation with history of bleeding, HTN, BPH, former smoker, began experiencing some chest pain last week on Wednesday with seeing a material analyst, and lab work was drawn, he was asked to go to the ER due to some mild abnormality of troponin at that time. Presented to ER today due to recurrent chest pain and abnormal troponin. Woke up with chest pain this morning, has been getting some relief from nitroglycerin. In ER troponin elevated up to 1657. Chest x-ray with diffuse infiltrate in the right upper lobe suggesting pneumonia. Left basilar pleural effusion. Received aspirin, started on anticoagulation with Lovenox. Cardiology was consulted, and underwent urgent PCI with NSTEMI with unstable angina. Status post PCI x 2 with severe proximal LAD stenosis, distal LAD stenosis. Review of Systems Const: Denies: fever(s), chills, body aches or malaise ENMT: Denies: throat pain Card: Denies: chest pain, edema, pre-syncope or dyspnea on exertion Resp: Denies: dyspnea, productive cough, change in phlegm color or hemoptysis GI: Denies: abdominal pain, nausea, vomiting, diarrhea, constipation, hematochezia or melena : Denies: flank pain, difficulty urinating, urinary frequency or hematuria Musc: Denies: back pain, joint swelling or joint redness Skin/Breast: Denies: rash or new lesions Neuro: Denies: headache(s), dizziness or confusion Medications/Allergies Home Medications Medication Instructions Recorded Confirmed Last Taken Type hydrocortisone 10 mg tablet 10 mg PO BID 09/07/19 09/11/24 07/10/24 History prednisone 5 mg tablet 5 mg PO DAILY 09/07/19 09/11/24 07/10/24 History pregabalin 300 mg capsule (Lyrica) 300 mg PO DAILY 09/07/19 09/11/24 07/09/24 History hydroxyzine HCl 25 mg tablet 25 mg PO DAILY Itching 10/17/19 09/11/24 07/10/24 History nitroglycerin 0.4 mg sublingual 0.4 mg sublingual Q5M PRN Chest 09/25/20 09/11/24 Unknown Rx tablet (Nitrostat) Pain #25 tabs digoxin 125 mcg (0.125 mg) tablet 62.5 mcg PO DAILY 12/12/20 09/11/24 07/10/24 History dexlansoprazole 60 mg 60 mg PO DAILY 07/07/23 09/11/24 07/10/24 History capsule,biphase delayed release amiodarone 200 mg tablet 200 mg PO DAILY 05/29/24 09/11/24 07/10/24 History midodrine 2.5 mg tablet See Rx Instructions .Route .COMPLEX 06/18/24 09/11/24 07/10/24 History apixaban 2.5 mg tablet 2.5 mg PO BID #180 tabs 08/23/24 09/11/24 Unknown Rx docusate sodium 100 mg capsule 100 mg PO DAILY 09/11/24 09/11/24 Unknown History ferrous sulfate 325 mg (65 mg 650 mg PO TID 09/11/24 09/11/24 Unknown History iron) tablet (FeroSul) levothyroxine 75 mcg tablet 75 mcg PO DAILY 09/11/24 09/11/24 Unknown History triamcinolone acetonide 0.1 % 1 applic topical BID 09/11/24 09/11/24 Unknown History topical cream (Triderm) Allergies Allergy/AdvReac Type Severity Reaction Status Date / Time amoxicillin [From Augmentin] Allergy Unknown Unknown Verified 06/30/24 09:45 aspirin Allergy Unknown ADR-Heartbu Verified 06/30/24 09:45 rn clavulanic acid Allergy Unknown Unknown Verified 06/30/24 09:45 [From Augmentin] codeine Allergy Unknown ADR-Heartbu Verified 06/30/24 09:45 rn finasteride [From Proscar] Allergy Unknown Unknown Verified 06/30/24 09:45 isosorbide [From Imdur] Allergy Unknown Unknown Verified 06/30/24 09:45 morphine Allergy Unknown ADR-Halluci Verified 06/30/24 09:45 nating rabeprazole [From AcipHex] Allergy Unknown Unknown Verified 06/30/24 09:45 Sulfa (Sulfonamide Allergy Unknown ALGY-Swell Verified 06/30/24 09:45 Antibiotics) Lip/Tongue/Throat adhesive tape Allergy ALGY-Redness Verified 06/30/24 09:45 of Skin PFSH Acute PFSH: Medical History (Updated 09/11/24 @ 16:05 by Aaron Gonzalez MD) Opioid contract exists Orthostatic hypotension Anticoagulation adequate with anticoagulant therapy Chronic prostatitis Chronic cystitis Essential hypertension Atrial fibrillation Chest pain CAD (coronary artery disease) Gross hematuria BPH loc w urin obs/LUTS Could not tolerate Alpha blockers or 5 alpha reductase inhibitors. Recurrent UTI Surgical History History of back surgery S/P hemorrhoidectomy S/P appendectomy H/O total hip arthroplasty S/P inguinal hernia repair H/O heart artery stent H/O local excision of skin lesion S/P cardiac pacemaker procedure Family History Family/Other Cancer CAD (coronary artery disease) Father , AT AGE 78 No problems noted. Mother , AT AGE 84 CAD (coronary artery disease) Social History Smoking and tobacco/nicotine status: former use of tobacco/nicotine Alcohol intake: never Substance/Drug Use: never Adopted: No Caregiver/support person: No Lives independently: No Household members: spouse Marital status: Current occupational status: retired Current gender identity: Male Vitals/I&O/Wt Last Vital Signs Temp 98.3 F 09/11/24 10:50 Pulse 72 09/11/24 14:20 Resp 18 09/11/24 14:20 BP 125/68 09/11/24 14:20 Pulse Ox 94 09/11/24 14:20 O2 Del Method Room Air 09/11/24 14:20 O2 Flow Rate 2 09/11/24 13:45 Weight last 48 hrs Weight 83.461 kg Physical Exam Narrative: Accompanied by his daughter and granddaughter present Const: COMMON NORMALS: patient oriented x3 and alert GENERAL APPEARANCE: cooperative ORIENTATION/CONSCIOUSNESS: Yes awake HENMT: COMMON NORMALS: oropharynx normal Neck/C-Spine: COMMON NORMALS: no JVD Resp: COMMON NORMALS: normal respiratory effort and clear to auscultation bilaterally AUSCULTATION: clear to auscultation bilaterally Cardio: COMMON NORMALS: no JVD, regular rhythm, S1 normal heart sound present, S2 normal heart sound present and No murmurs present (Cardio) RHYTHM: regular rhythm HEART SOUNDS: S1 normal heart sound present and S2 normal heart sound present GI: COMMON NORMALS: Normal to inspection, nondistended, normoactive bowel sounds present, Soft to palpation and non-tender PALPATION: Yes Soft to palpation Extremity: COMMON NORMALS: no joint enlargement and no pedal edema Neuro: COMMON NORMALS: patient oriented x3 and moves all extremities SENSORIUM/ORIENTATION: Yes alert Skin: COMMON NORMALS: no rashes or lesions noted GENERAL SKIN EXAM: no rashes or lesions noted Data 09/11/24 11:12 09/11/24 11:12 A&P Assessment and plan (1) NSTEMI (non-ST elevated myocardial infarction): NSTEMI with unstable angina, cardiology was consulted by ER, went for urgent coronary catheterization. Chest pain yesterday and today, troponin with significant ovation up to 1687. Paced rhythm on EKG on my interpretation, pending official read. Had received aspirin, start anticoagulation with Lovenox. Status post PCI x 2 proximal left main and distal LAD. Discussed with resource conservation specialist. Chest x-ray discussed with him and family, diffuse infiltrate in the right upper lobe suggesting pneumonia. Small left basal pleural effusion. Continue antiplatelet, statin, does not appear to be beta-azael. He is to resume Eliquis tomorrow. Continue postoperative care. Monitor for risk of bleeding. Reassess blood counts. Monitor telemetry with risk of arrhythmia/reperfusion injury. (2) Pneumonia: Possible community-acquired pneumonia in left upper lobe. Reviewed vitals, CBC, CMP. Oxygenation so far is okay, able to maintain 94% on room air. Without leukocytosis, fever. Discussed empiric treatment for now with him and family. He does appear to have amoxicillin allergy, as well as sulfa allergy. Start Levaquin for now. Monitor oxygenation. Reassess. He is having some mild cough. Not producing much phlegm. Will additionally check flu, COVID, RSV PCR. Plan Dark stool: Does report having had a dark stool, but does also take iron. Reassess blood counts. Monitor for risk of bleeding. Will need PPI for now. Check Hemoccult. Atrial fibrillation: Continue digoxin, amiodarone, he is to resume Eliquis in the morning. CAD BPH: Monitor for any retention. Could not tolerate any oral medications. Orthostatic hypotension: Continue midodrine. Attestations Medical Necessity Statement*: Admission over 2 midnights dissipated for assessment management of NSTEMI, unstable angina community-acquired pneumonia treatment of advanced age with underlying CAD, atrial fibrillation and additional comorbidities as above. Diagnoses NSTEMI (non-ST elevated myocardial infarction) I21.4 Pneumonia J18.9
[2024-09-11] MEDS: pantoprazole DR 40 mg Tablet PO (16:44)
[2024-09-11] MEDS: levofloxacin-dextrose 5 % 750 MG/150 ML PREMIX 100 MG IV (16:45)
[2024-09-11] MEDS: digoxin 125 mcg Tablet 62.5 MCG PO (16:45)
[2024-09-11] MEDS: amiodarone 200 mg Tablet PO (16:45)
[2024-09-11] MEDS: sodium chloride 0.9% 1,000 ML 75 ML IV (16:46)
--- NOTE | 2024-09-11 16:57 | ECG_ITS ---
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 Measurements Intervals [place] Rate: 70 P: 0 MS: 0 QRS: -67 QRSD: 192 T: -24 QT: 505 QTc: 547 Interpretive Statements ELECTRONIC VENTRICULAR PACEMAKER Compared to ECG 09/11/2024 10:53:24 ST (T wave) deviation no longer present Myocardial infarct finding no longer present Electronically Signed On 09-16-2024 13:56:38 SHIPYARD LABORER by Shubham Biswas M.D. [id number]
[2024-09-11 17:39] LABS: Covid PCR NEGATIVE (Negative); Influenza A NEGATIVE (Negative); Influenza B NEGATIVE (Negative); Respiratory Syncytial Virus Ce NEGATIVE (Negative)
[2024-09-11 18:16] LABS: Bilirubin Urine 1+ (Negative); Blood Urine 2+ (Negative); Glucose Urine UA Negative (Normal); Ketones Urine Negative (Negative); Leukocyte Esterase Urine Negative (Negative); Nitrate Urine Negative (Negative); Protein Urine 1+ (Negative); Urine Appearance Cloudy (CLEAR); Urine Color Dark Yellow (Yellow)
[2024-09-11 18:18] LABS: Add Urine Microscopic? YES
[2024-09-11 18:45] LABS: Bacteria Urine TRACE /hpf; RBC Urine 0-4 /hpf (0-2); Specific Gravity, Urine >= 1.099 (1.005-1.030); Squamous Epithelial Cell Urine 0-4 /hpf (0-5); UA Manual Slide Review YES; UA Slide Review UA Slide Review Perf; WBC Urine 0-4 /hpf (0-5)
[2024-09-11 18:46] LABS: Calcium Oxalate Crystals Urine 15-25 /hpf
--- NOTE | 2024-09-11 18:53 | PC.NURSE ---
Patient's right radial TR-band, air is removed slowly and TR-band is removed and a 2x2 and tegaderm is placed. Patient is reeducated to not use that right hand/wrist until tomorrow afternoon. Patient states understanding.
[2024-09-11 19:37] LABS: Troponin 5 6HR Delta -259 ng/L (0-12)
[2024-09-11 19:38] LABS: Troponin 5 6HR 1398 ng/L (0-15)
[2024-09-11] MEDS: pregabalin 75 mg Capsule 150 MG PO (20:25)
[2024-09-11] MEDS: apixaban 5 mg Tablet 2.5 MG PO (20:25)
[2024-09-12] VITALS (15 sets, daily range): BP systolic 93–188; BP diastolic 58–85; PULSE 57–93; RESP 15–27; TEMP 36.3–37.6; O2SAT 90–98
[2024-09-12] MEDS: acetaminophen 325 mg Tablet 650 MG PO ×2 (04:33→11:21)
--- NOTE | 2024-09-12 04:36 | ECG_ITS ---
[employer] Test Date: 2024-09-12 Pat Name: Gamal Burk Department: Room: 112 Gender: Male Inhalation Therapy Aide: : 1940 Requested By: Shubham Biswas Order Number: [id number] Marcus MD: Shubham Biswas M.D. Measurements Intervals [place] Rate: 76 P: 0 KS: 0 QRS: -59 QRSD: 103 T: -56 QT: 379 QTc: 427 Interpretive Statements UNCERTAIN IRREGULAR RHYTHM ELECTRONIC VENTRICULAR PACEMAKER -- CONTOUR ANALYSIS BASED ON INTRINSIC RHYTHM PATTERN CONSISTENT WITH PULMONARY DISEASE POSSIBLE RIGHT VENTRICULAR CONDUCTION DELAY [RSR (QR) IN V1/V2] MARKED ST ELEVATION, UNCHANGED FROM BEFORE Compared to ECG 09/11/2024 14:56:04 ST (T wave) deviation now present Myocardial infarct finding now present Electronically Signed On 09-14-2024 11:25:45 STIPPLER by Shubham Biswas M.D. [id number]
[2024-09-12 06:50] LABS: Basophils # 0.1 10^3/uL (0.0-0.1); Basophils % 1.2 %; Eosinophils # 0.2 10^3/uL (0.0-0.8); Eosinophils % 1.9 %; Lymphocytes # 1.3 10^3/uL (0.8-4.8); Lymphocytes % 14.1 %; Mean Corpuscular HGB Conc 27.5 g/dL (30-55); Mean Corpuscular Hemoglobin 21.2 pg (27-33); Mean Corpuscular Volume 76.9 fl (82-101); Mean Platelet Volume 11.1 fL (7.4-10.4); Monocytes # 0.8 10^3/uL (0.2-0.9); Monocytes % 8.5 %; Neutrophils # 6.93 10^3/uL (1.8-7.7); Neutrophils % 73.6 %; Nucleated Red Blood Cells % 0 %; Platelet Count 270 10^3/cmm (157-399); Red Blood Count 3.64 10^6/uL (3.85-5.65); Red Cell Distribution Width 19.2 % (12.1-15.1); White Blood Count 9.42 10^3/uL (3.29-11.43)
[2024-09-12 07:03] LABS: Alanine Aminotransferase 13 U/L (0-41); Albumin Level 2.8 g/dL (3.5-5.2); Alkaline Phosphatase 82 U/L (40-130); Anion Gap 12.4 (5-19); Aspartate Amino Transferase 85 U/L (0-40); Blood Urea Nitrogen 24 mg/dL (8-23); Calcium 8.1 mg/dL (8.5-10.5); Carbon Dioxide 28 mmol/L (22-29); Chloride 104 mmol/L (98-107); Creatinine Clr Calc Pharmacy 55.2756; Glucose 87 mg/dL (65-115); Magnesium 2.1 mg/dL (1.7-2.3); Osmolality Calculated 293 mOsm/kg (285-295); Potassium 4.4 mmol/L (3.5-5.1); Sodium 140 mmol/L (136-145); Total Bilirubin 0.4 mg/dL (0.15-1.2); Total Protein 4.8 g/dL (6.6-8.7)
[2024-09-12] MEDS: docusate sodium 100 mg Capsule PO (08:24)
[2024-09-12] MEDS: levothyroxine 75 mcg Tablet PO (08:24)
[2024-09-12] MEDS: digoxin 125 mcg Tablet 62.5 MCG PO (08:24)
[2024-09-12] MEDS: clopidogrel 75 mg Tablet PO (08:24)
[2024-09-12] MEDS: pantoprazole DR 40 mg Tablet PO ×2 (08:25→20:44)
[2024-09-12] MEDS: amiodarone 200 mg Tablet PO (08:25)
[2024-09-12] MEDS: apixaban 5 mg Tablet 2.5 MG PO ×2 (08:25→20:43)
--- NOTE | 2024-09-12 08:41 | USCV_ITS ---
Gamal Burk Age: 83 Gender: M : 1940 Exam Date: 09/12/2024 15:09 Ordering Phys: Velia Grider Technologist: [place] [facility] [place]: ef BP: 133 / 732 HR: Rhythm: Sinus Technical Quality: Adequate MEASUREMENTS (Male / Female) Normal Values 2D ECHO LV Diastolic Diameter PLAX 5.4 cm 4.2 - 5.9 / 3.9 - 5.3 cm IVS Diastolic Thickness 1.3 cm 0.6 - 1.0 / 0.6 - 0.9 cm IVS Systolic Thickness 1.8 cm LVPW Diastolic Thickness 1.3 cm 0.6 - 1.0 / 0.6 - 0.9 cm LVPW Systolic Thickness 1.7 cm LVOT Diameter 2.4 cm LV Ejection Fraction 2D Teich 70.9 % LV Ejection Fraction MOD 4C 40.5 % LV Ejection Fraction MOD 2C 48.9 % LV Ejection Fraction 2C AL 48.9 % LA Diameter 4.0 cm RA Systolic Volume 4C AL 99.1 ml RA Systolic Volume 4C MOD 98.4 ml Aorta at Sinotubular Diameter 3.3 cm M-MODE LA Ao Ratio MM 1.3 AV Cusp Separation MM 2.3 cm FINDINGS Left Ventricle Right Ventricle Right Atrium Left Atrium Mitral Valve Aortic Valve Tricuspid Valve Pulmonic Valve Pericardium Aorta IVC CONCLUSIONS LV systolic function is moderately reduced with EF 35%. Moderate global hypokinesis with more prominent hypokinesis of anterolateral, anterior and septal thomas. Compared to prior echocardiogram from 2023, LV systolic function has decreased significantly. Shubham Biswas MD (Electronically Signed) Final Date: 13 September 2024 09:49 S
--- NOTE | 2024-09-12 09:16 | P.PN_ITS ---
Subjective 2 Subjective: Had an episode of chest pain early this morning, lasting about 30 minutes, resolved spontaneously. Has not noticed any outward bleeding. Discussed with him decreasing hemoglobin down to 7.7. No issues at access site at the right wrist. He states his hands are usually cool to touch bilaterally. Vitals/I&O/Wt Last Vital Signs Temp 97.5 F L 09/12/24 08:00 Pulse 81 09/12/24 08:24 Resp 20 H 09/12/24 08:00 BP 143/70 09/12/24 08:00 Pulse Ox 94 09/12/24 08:00 O2 Del Method Nasal Cannula 09/12/24 08:00 O2 Flow Rate 2 09/12/24 08:00 09/11/24 09/12/24 09/12/24 22:59 06:59 14:59 Intake Total 590 / 590 1000 / 1590 240 / 240 Output Total 575 / 575 500 / 1075 Balance 15 / 15 500 / 515 240 / 240 Weight last 48 hrs Weight 82.554 kg Weight 82.554 kg Weight 83.461 kg Physical Exam 2 Const: COMMON NORMALS: patient oriented x3 and alert GENERAL APPEARANCE: c ooperative ORIENTATION/CONSCIOUSNESS: Yes awake HENMT: COMMON NORMALS: oropharynx normal Neck/C-Spine: COMMON NORMALS: no JVD Resp: COMMON NORMALS: normal respiratory effort and clear to auscultation bilaterally AUSCULTATION: clear to auscultation bilaterally Cardio: COMMON NORMALS: no JVD, regular rhythm, S1 normal heart sound present, S2 normal heart sound present and No murmurs present (Cardio) RHYTHM: regular rhythm HEART SOUNDS: S1 normal heart sound present and S2 normal heart sound present GI: COMMON NORMALS: Normal to inspection, nondistended, normoactive bowel sounds present, Soft to palpation and non-tender PALPATION: Yes Soft to palpation Extremity: COMMON NORMALS: no joint enlargement and no pedal edema OTHER: Right wrist covered with dressing/[place]. I do not detect any pulsatile mass. Hands are cool to touch bilaterally, no cyanosis, no changes in motor function. Neuro: COMMON NORMALS: patient oriented x3 and moves all extremities S ENSORIUM/ORIENTATION: Yes alert Skin: COMMON NORMALS: no rashes or lesions noted GENERAL SKIN EXAM: no rashes or lesions noted Data 09/12/24 06:12 09/12/24 06:12 A&P Assessment and plan (1) NSTEMI (non-ST elevated myocardial infarction): General so far maintaining blood pressure, no arrhythmia noted. Has had episode of chest pain this morning 30 minutes, discussed with flight paramedic. He has noted to have anemia, hemoglobin down to 7.7, discussed 1 unit RBC transfusion with cardiology, with him potential risks and benefits. Will need to follow-up blood counts again in the morning. Requested Hemoccult. He has had issues with hematuria in the past, although no hematuria currently. Possible component of dilutional anemia as well has been receiving fluids overnight. Stopped IVF. Monitor for risk of bleeding with continued encephalitis, anticoagulation. Reassess hemoglobin counts. NSTEMI with unstable angina, cardiology was consulted by ER, went for urgent coronary catheterization. Chest pain yesterday and today, troponin with significant ovation up to 1687. Paced rhythm on EKG on my interpretation, pending official read. Had received aspirin, start anticoagulation with Lovenox. Status post PCI x 2 proximal left main and distal LAD. Discussed with flight paramedic. Chest x-ray discussed with him and family, diffuse infiltrate in the right upper lobe suggesting pneumonia. Small left basal pleural effusion. Continue antiplatelet, statin, does not appear to be beta-azael. He is to resume Eliquis tomorrow. Continue postoperative care. Monitor for risk of bleeding. Reassess blood counts. Monitor telemetry with risk of arrhythmia/reperfusion injury. (2) Pneumonia: Continue empiric treatment for possible pneumonia with Levaquin currently. Monitor oxygenation. He is requiring 2 L nasal cannula oxygen. Possible community-acquired pneumonia in left upper lobe. Reviewed vitals, CBC, CMP. Oxygenation so far is okay, able to maintain 94% on room air. Without leukocytosis, fever. Discussed empiric treatment for now with him and family. He does appear to have amoxicillin allergy, as well as sulfa allergy. Start Levaquin for now. Monitor oxygenation. Reassess. He is having some mild cough. Not producing much phlegm. Will additionally check flu, COVID, RSV PCR. Plan Dark stool: Does report having had a dark stool, but does also take iron. Reassess blood counts. Monitor for risk of bleeding. Increase PPI to twice daily. Check Hemoccult. Atrial fibrillation: Continue digoxin, amiodarone, he is to resume Eliquis in the morning. CAD BPH: Monitor for any retention. Could not tolerate any oral medications. Orthostatic hypotension: Continue midodrine. Attestations 2 Medical Necessity Statement*: Continue admission for assessment and management after STEMI with acute anemia, pneumonia and gentleman of advanced age. and High MDM includes amount and/or complexity of data reviewed/ordered [ resulted lab(s)/test(s), ordered lab(s)/test(s) and other healthcare professional discussion] and described risk of complication, morbidity or mortality of management as documented Diagnoses NSTEMI (non-ST elevated myocardial infarction) I21.4 Pneumonia J18.9
--- NOTE | 2024-09-12 11:05 | P.PN_ITS ---
<Statement entered by Shubham Biswas M.D - 09/13/24 19:56> Patient was evaluated and cared for in conjunction with an advanced practice practitioner. I personally examined the patient and reviewed the chart and all pertinent data including imaging, telemetry, and laboratory results. I discussed the patient in detail with the advanced practice practitioner. Please see their note for complete progress note, results and agreed upon plan of care for the patient. Patient is chest pain free. Had 1 episode last night that he says worsened with breathing. Hemoglobin has decreased. Recieving blood transfusion. GENERAL: Patient is alert and oriented HEART: Regular S1 and S2 LUNGS: Clear to auscultation bilaterally EXTREMITIES: Lower extremities with no edema 1) NSTEMI 2) Pneumonia 3) LV dysfunction Patient has late presentation of [place] as had been having chest pains for 1 week before coming to hospital and had presenting troponin of more than 1600. Minimal uptrend. EKG is paced. Chest pain episode last night is atypical, patient may have developed post [place] pericarditis. No more chest dicomfort.Also has developed LV dysfunction which is new. Continue plavix and eliquis Patient has significant anemia requiring transfusion Patient is being treated for pneumonia Thank you for involving us care of this patient. We will continue to follow. Please call with questions Subjective 2 Subjective: Overnight he has had some chest pain, in the left chest lasting 30 to 45 minutes, resolved spontaneously. Yesterday underwent coronary angiogram noting mild to moderate stenosis of the left main, severe stenosis of the proximal to mid LAD treated with JUAN x 1, distal LAD stenosis treated with JUAN x 1. Left circumflex and RCA patent, diffuse in-stent restenosis the RCA. No complications with right radial cath site. Eliquis resumed this morning, morning labs showed decrease in hemoglobin to 7.7. He is not noting any bloody stools, may be dilutional effect. Vitals/I&O/Wt Last Vital Signs Temp 97.5 F L 09/12/24 08:00 Pulse 81 09/12/24 08:24 Resp 20 H 09/12/24 08:00 BP 143/70 09/12/24 08:00 Pulse Ox 94 09/12/24 08:00 O2 Del Method Nasal Cannula 09/12/24 08:00 O2 Flow Rate 2 09/12/24 08:00 09/11/24 09/12/24 09/12/24 22:59 06:59 14:59 Intake Total 590 / 1590 1000 / 1590 240 / 240 Output Total 575 / 1075 500 / 1075 Balance 15 / 515 500 / 515 240 / 240 Weight last 48 hrs Weight 182 lb Weight 182 lb Weight 184 lb Physical Exam 2 Const: COMMON NORMALS: no acute distress and patient oriented x3 GENERAL APPEARANCE: cooperative and comfortable ORIENTATION/CONSCIOUSNESS: Yes awake, Yes oriented to person, Yes oriented to place and Yes oriented to time Chest: COMMONS NORMALS: normal inspection of the chest and normal palpation of entire chest wall CHEST: Yes Symmetrical chest wall rise Resp: COMMON NORMALS: normal respiratory effort, No retractions, No use of accessory muscles and clear to auscultation bilaterally EFFORT & INSPECTION: Yes symmetric chest movement AUSCULTATION: clear to auscultation bilaterally Cardio: COMMON NORMALS: regular rate, regular rhythm, S1 normal heart sound present, S2 normal heart sound present, No gallops present (Cardio), No clicks present (Cardio), No murmurs present (Cardio) and No rub (Cardio) RATE: r egular rate RHYTHM: regular rhythm HEART SOUNDS: S1 normal heart sound present and S2 normal heart sound present PERIPHERAL PULSES: radial pulses present Extremity: COMMON NORMALS: no pedal edema Neuro: COMMON NORMALS: patient oriented x3 and moves all extremities S ENSORIUM/ORIENTATION: Yes oriented to person, Yes oriented to place and Yes oriented to time Data 09/13/24 04:08 09/13/24 04:08 A&P Assessment and plan (1) NSTEMI (non-ST elevated myocardial infarction): (2) CAD (coronary artery disease): Qualifiers: Associated angina: without angina Coronary Disease-Associated Artery/Lesion type: [place] artery [place] vs. transplanted heart: [place] heart Qualified Code(s): I25.10 - Atherosclerotic heart disease of [place] coronary artery without angina pectoris (3) Atrial fibrillation: Qualifiers: Atrial fibrillation type: persistent (not longstanding) Qualified Code(s): I48.19 - Other persistent atrial fibrillation (4) Essential hypertension: (5) Dyspnea on exertion: (6) Cardiomyopathy: Plan PCI of the proximal and distal LAD yesterday, 1 episode of chest pain overnight. Will continue to monitor symptoms, especially given apparent decrease in hemoglobin. Will recheck hemoglobin tomorrow. He had an echocardiogram in July showing LVEF 61%, will order a limited echocardiogram to reassess LV function given the recent LAD PCI. Continue Eliquis 2.5 mg twice a day, digoxin 62.5 mcg daily, Plavix, amiodarone 200 mg daily. Protonix 40 mg twice daily added by hospitalist service. Attestations 2 Medical Necessity Statement*: NSTEMI, PCI of the LAD Coding Level of Care Code Acute Code for [facility] Diagnoses NSTEMI (non-ST elevated myocardial infarction) I21.4 Coronary artery disease involving [place] coronary artery of [place] heart without angina pectoris I25.10 Associated angina: without angina Coronary Disease-Associated Artery/Lesion type: [place] artery [place] vs. transplanted heart: [place] heart Persistent atrial fibrillation I48.19 Atrial fibrillation type: persistent (not longstanding) Essential hypertension I10 Dyspnea on exertion R06.09 Cardiomyopathy I42.9
--- NOTE | 2024-09-12 12:19 | XR_ITS ---
WS: [id number] Exam: XR shoulder LT min 2V* [id number] Date/Time of Exam: 09/12/2024 12:22 PM Reason For Exam: pain after fall No fracture or dislocation. Moderate DJD of the glenohumeral joint. Mild DJD of the AC joint. Normal soft tissues. XR/XR shoulder LT min 2V* [id number] IMPRESSION: 1. Degenerative changes. No fracture. 2. Incidentally noted is small LEFT basal pleural effusion.
--- NOTE | 2024-09-12 12:49 | PC.NURSE ---
Provider is updated, Patient has complained this morning of left shoulder pain. He said it is like in the shoulder joint area. He said that it is the side that he fell on 2 days ago. I did give him Tylenol but he said it is like a 8/10. I did reposition him and that helped a little. x-ray is ordered.
[2024-09-12] MEDS: HYDROcodone-acetaminophen 5-325 mg Tablet 1 TAB PO (15:21)
[2024-09-12] MEDS: levofloxacin-dextrose 5 % 750 MG/150 ML PREMIX 100 MG IV (15:21)
--- NOTE | 2024-09-12 15:31 | XRR_ITS ---
PROCEDURE INFORMATION: Exam: XR Cervical Spine Exam date and time: 09/12/2024 5:04 PM Age: 83 years old Clinical indication: Neck pain; Additional info: L side pain TECHNIQUE: Imaging protocol: Radiologic exam of the cervical spine. Views: 2 or 3 views. COMPARISON: CR XR shoulder LT min 2V* [id number] 09/12/2024 12:26 PM FINDINGS: Bones/joints: Severe degenerative disc disease at C3-C4, C5-C6 and C6-C7. Multilevel facet arthrosis throughout the cervical spine. Soft tissues: Unremarkable. Lungs: Opacities throughout the atelectatic right upper lobe. A right hilar mass can not be excluded and a chest CT with contrast may be of benefit more fully characterize this finding. XR/XR cervical spine 3V* [id number] IMPRESSION: 1. Opacities throughout the atelectatic right upper lobe. A partially visualized right hilar mass can not be excluded and a chest CT with contrast may be of benefit more fully characterize this finding. 2. Severe degenerative disc disease at C3-C4, C5-C6 and C6-C7. 3. Multilevel facet arthrosis throughout the cervical spine.
--- NOTE | 2024-09-12 15:33 | PC.NURSE ---
Updated provider that patient is still complaining of the left shoulder pain, now saying that it is going up into the left side of his neck and into the left ear. At first he said chest pain but shows nursing staff the left side of the neck and left ear. provider did order x-ray and EKG.
--- NOTE | 2024-09-12 15:44 | ECG_ITS ---
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 Measurements Intervals [place] Rate: 77 P: 0 MS: 0 QRS: -48 QRSD: 97 T: -41 QT: 346 QTc: 393 Interpretive Statements UNCERTAIN IRREGULAR RHYTHM ELECTRONIC VENTRICULAR PACEMAKER INFERIOR MYOCARDIAL INFARCTION , AGE INDETERMINATE ANTEROSEPTAL MYOCARDIAL INFARCTION , AGE INDETERMINATE Compared to ECG 09/12/2024 04:36:59 ST (T wave) deviation no longer present Myocardial infarct finding still present Electronically Signed On 09-14-2024 11:20:48 [employer] by Shubham Biswas M.D. [email or web address]
--- NOTE | 2024-09-12 15:55 | PC.NURSE ---
Provider was notified that the EKG was done and in the chart. Dr Gonzalez asked nursing to update Dr. Biswas's office. Nursing updated Velia Grider, cardiology, with the patients complaints of pain and ECG. Velia Grider came to bedside and talked to patient 10 minutes after nursing talking with her. Dr. Gonzalez also came to bedside to discuss the findings with patient and family.
[2024-09-12] MEDS: pregabalin 75 mg Capsule 150 MG PO (20:43)
[2024-09-13 04:31] LABS: Basophils # 0.1 10^3/uL (0.0-0.1); Basophils % 0.6 %; Hematocrit 29.4 % (37-53); Lymphocytes # 0.9 10^3/uL (0.8-4.8); Lymphocytes % 6.7 %; Mean Corpuscular HGB Conc 28.6 g/dL (30-55); Mean Corpuscular Hemoglobin 21.9 pg (27-33); Mean Corpuscular Volume 76.6 fl (82-101); Mean Platelet Volume 11.3 fL (7.4-10.4); Monocytes % 7.3 %; Neutrophils # 11.41 10^3/uL (1.8-7.7); Neutrophils % 84.6 %; Nucleated Red Blood Cells % 0 %; Platelet Count 238 10^3/cmm (157-399); Red Blood Count 3.84 10^6/uL (3.85-5.65); Red Cell Distribution Width 19.4 % (12.1-15.1); White Blood Count 13.49 10^3/uL (3.29-11.43)
[2024-09-13 05:00] LABS: Alanine Aminotransferase 17 U/L (0-41); Albumin Level 2.9 g/dL (3.5-5.2); Alkaline Phosphatase 87 U/L (40-130); Aspartate Amino Transferase 90 U/L (0-40); Blood Urea Nitrogen 31 mg/dL (8-23); Carbon Dioxide 23 mmol/L (22-29); Chloride 102 mmol/L (98-107); Creatinine Clr Calc Pharmacy 55.2756; Globulin 1.7 g/dL (1.3-4.6); Glucose 110 mg/dL (65-115); Osmolality Calculated 295 mOsm/kg (285-295); Sodium 139 mmol/L (136-145); Total Bilirubin 0.9 mg/dL (0.15-1.2); Total Protein 4.6 g/dL (6.6-8.7)
[2024-09-13 05:09] LABS: Anion Gap 18.9 (5-19); Potassium 4.9 mmol/L (3.5-5.1)
[2024-09-13 06:00] VITALS: BMI 23.3
--- NOTE | 2024-09-13 09:57 | PM.MISC ---
Miscellaneous Note Purpose of Documentation: Event note Note: Patient was found unresponsive on the bed by nursing staff. No complaints of chest pain before. He was off tele since last night as was confused and was taking it off. On my arrival chest compressions were going on. Rhythm was asystole. Primary team was called. Family had told them he had prior DNR order signed. Patient at 8:25AM. Primary team and I spoke to patient's daughter and updated.
--- NOTE | 2024-09-13 11:39 | PM.DDS ---
Discharge Providers DDS Date of Admission: 09/11/24 14:26 Date Summary Completed: 09/13/24 Attending Provider at Admission: Shubham Biswas M.D Attending Provider at Discharge: Shubham Biswas M.D Primary Care Provider: Riaz Lovelace MD DS Diagnoses Hospital Diagnoses (1) NSTEMI (non-ST elevated myocardial infarction): (2) Pneumonia: Reason for Visit Reason for Visit cp Summary Summary Summary: Very pleasant 83-year-old gentleman, hard of hearing, with history of mild CAD, PPM, atrial fibrillation, on reduced anticoagulation with history of bleeding, HTN, BPH, former smoker, began experiencing some chest pain last week on Wednesday with seeing a account executive sales representative, and lab work was drawn, he was asked to go to the ER due to some mild abnormality of troponin at that time. Presented to ER due to recurrent chest pain and abnormal troponin. Woke up with chest pain in the morning, has been getting some relief from nitroglycerin. In ER troponin elevated up to 1657. Chest x-ray with diffuse infiltrate in the right upper lobe suggesting pneumonia. Left basilar pleural effusion. Received aspirin, started on anticoagulation with Lovenox. Cardiology was consulted, and underwent urgent PCI with NSTEMI with unstable angina. Status post PCI x 2 with severe proximal LAD stenosis, distal LAD stenosis. He was continued on antiplatelet and resumed on low-dose Eliquis. He was feeling better after the procedure, although did have an episode of chest pain which resolved spontaneously in the morning of 09/12, with follow-up EKG and limited echocardiogram obtained, reviewed by cardiology, and was reassessed at bedside. Possibly with some demand ischemia with also having developed acute on chronic anemia, hemoglobin decreased down to 7.7. He was transfused 1 unit RBC with good response. Without hematochezia or melena, hemoccult was requested. His hospital stay was complicated by mild to moderate delirium and sundowning as well as left shoulder pain. X-rays were obtained of left shoulder and cervical spine after recent fall with pain on passive range of motion beyond 90 degree abduction with finding of degenerative changes without fracture. Incidentally noted small left basal pleural effusion. Continued on Levaquin with suspected left-sided pneumonia, although was maintaining good oxygenation on room air. C-spine imaging reveals severe degenerative changes C3-C7, multi facet arthrosis throughout cervical spine. Incidentally also noted opacification atelectasis throughout the right upper lobe with suspected pneumonia as previously, but with a partially visualized right hilar mass not excluded - further imaging was going to be further considered with him and family in the morning. He could not keep telemetry on overnight 09/12. He became unresponsive, not breathing, without palpable pulse in the morning of 09/13 and limited CPR attempt was initiated, however, without ROSC further efforts were discontinued in accordance with his prior wishes. Additional Data Advance directives?: No Discharge Plan Discharge Patient Disposition: Condition: Prescriptions: No Action digoxin 125 mcg (0.125 mg) tablet 62.5 mcg PO DAILY dexlansoprazole 60 mg capsule,biphase delayed releas 60 mg PO DAILY amiodarone 200 mg tablet 200 mg PO DAILY Nitrostat 0.4 mg tablet, sublingual 0.4 mg SUBLINGUAL Q5M PRN (Reason: Chest Pain) Qty: 25 0RF apixaban 2.5 mg tablet 2.5 mg PO BID Qty: 180 3RF prednisone 5 mg Tablet 5 mg PO DAILY hydrocortisone 10 mg Tablet 10 mg PO BID pregabalin [Lyrica] 300 mg Capsule 300 mg PO DAILY hydroxyzine HCl 25 mg tablet 25 mg PO DAILY midodrine 2.5 mg tablet See Rx Instructions .ROUTE .COMPLEX Rx Instructions: Take 2 tablets in the AM and 2 tablets in the PM. Do not give last dose of day after 6PM or within 4 hrs of bedtime 2 tabs AM, 2 tabs PM triamcinolone acetonide [Triderm] 0.1 % cream 1 applic TOPICAL BID levothyroxine 75 mcg tablet 75 mcg PO DAILY ferrous sulfate [FeroSul] 325 mg (65 mg iron) tablet 650 mg PO TID docusate sodium 100 mg capsule 100 mg PO DAILY Referrals: Riaz Lovelace MD [Primary Care Provider] - Patient Instructions: Coronary Angioplasty (DC), Opioid Safety, Post Angiogram Home Care Instructions DS Attestations Time Spent in /Discharge Care*: greater than 30 min Quality - AMI: AMI present?: Yes Quality - Stroke: CVA present?: No Symptom Onset Unknown: No Quality - VTE: VTE present?: No Deep Vein Thrombosis/Pulmonary Embolism Present on Admission: No Coding Level of Care Code 50751 Total time (in minutes) for Discharge: 50 Diagnoses NSTEMI (non-ST elevated myocardial infarction) I21.4 Pneumonia J18.9
--- NOTE | 2024-09-13 16:05 | PC.NURSE ---
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 Patient was [place] [facility] [place].
== END 2024-09-13 08:25 | disposition expired | DRG 321 ==
LOC: ER 11:16 → CCL 12:05 → CSU 14:26
PROVIDERS: Family Medicine; Internal Medicine; Admitting Provider Internal Medicine; Emergency Provider Emergency Medicine; PCP Family Medicine; Visit Provider Internal Medicine
PROC: 027035Z Dilation of Coronary Artery, One Artery with Two Drug-eluting Intraluminal Devices, Percutaneous Approach (ICD-10-PCS; principal; 2024-09-11 13:10)
PROC: 027035Z Dilation of Coronary Artery, One Artery with Two Drug-eluting Intraluminal Devices, Percutaneous Approach (ICD-10-PCS; 2024-09-11 13:10)
DX: I21.4 Non-ST elevation (NSTEMI) myocardial infarction (principal); J18.9 Pneumonia, unspecified organism; F05 Delirium due to known physiological condition; I42.9 Cardiomyopathy, unspecified; I25.10 Atherosclerotic heart disease of native coronary artery without angina pectoris; I48.91 Unspecified atrial fibrillation; Z79.01 Long term (current) use of anticoagulants; I10 Essential (primary) hypertension; N40.0 Benign prostatic hyperplasia without lower urinary tract symptoms; D64.9 Anemia, unspecified; M47.812 Spondylosis without myelopathy or radiculopathy, cervical region; I95.1 Orthostatic hypotension; Z95.0 Presence of cardiac pacemaker; Z87.891 Personal history of nicotine dependence
CPT/HCPCS: 36415; 36430; 71045; 72040; 73030; 80053; 81001; 83735; 84484; 85018; 85025; 85347; 86850; 86900; 86920; 87637; 93005; 93308; 93454; 96374; 96375; 96376; 99152; 99153; 99285; A9270; C1725; C1769; C1874; C1887; C1894; C9600; J1644; J1956; J2250; J3010; J3490; J7030; P9016; Q9967